=== PATIENT | female | born 1965 | race Caucasian/White ===

== ENCOUNTER 2017-12-17 18:12 | Emergency (ER) | payer BC ==
[2017-12-17 18:38] VITALS: RESP 18
[2017-12-17] MEDS ORDERED: SODIUM CHLORIDE 0.9% 1,000 ML IV STA (20:09)
[2017-12-17] MEDS ORDERED: METOCLOPRAMIDE 5 MG/ML 2 ML VIAL IVP STA (20:09)
[2017-12-17] MEDS ORDERED: KETOROLAC 30 MG/ML 1 ML VIAL IVP STA (20:09)
[2017-12-17] MEDS ORDERED: diphenhydrAMINE 50 MG/ML 1 ML VIAL IVP STA (20:09)
--- NOTE | 2017-12-17 20:13 | ED ---
General Adult HPI - General Chief complaint: Nausea/Vomiting/Diarrhea Stated complaint: POSS PANCREAS FLARE Time Seen by Provider: 12/17/17 20:00 Source: patient Mode of arrival: ambulatory Limitations: no limitations - History of Present Illness Initial comments: 52-year-old female patient presents to the emergency department today for complaints of migraine headache. Patient states that the headache started around 4 AM. Patient states has been persistent and severe since then. She states that she does have a history of migraine headaches and she generally gets them when she has issues with her pancreas. She states that she has a history of pancreatitis without having any pain. Patient states that she has been vomiting throughout the day as well. States that she has been unable to keep any food or fluid down. She denies any blurred or double vision. States that she does have some light and sound sensitivity which is per her usual migraine pattern. Patient denies any recent rash, fever, chills, shortness breath, chest pain, abdominal pain, diarrhea, constipation, back pain, numbness , tingling, dizziness, weakness, hematuria, dysuria, urinary urgency, urinary frequency, or any other complaints. - Related Data Home Medications Medication Instructions Recorded Confirmed FLUoxetine HCL [PROzac] 40 mg PO HS 12/17/17 12/17/17 Lansoprazole [Prevacid] 15 mg PO DAILY 12/17/17 12/17/17 Allergies Allergy/AdvReac Type Severity Reaction Status Date / Time codeine AdvReac Severe Nausea & Verified 12/17/17 19:54 Vomiting Review of Systems ROS Statement: Those systems with pertinent positive or pertinent negative responses have been documented in the HPI. ROS Other: All systems not noted in ROS Statement are negative. Past Medical History Past Medical History: GERD/Reflux, Osteoarthritis (OA) Additional Past Medical History / Comment(s): OCCASIONAL HEART PALPITATIONS, PAST RUPTURED DISC , PAST HX OF ANOREXIA & BULEMIA., HEMORRHOIDS., MENORRHAGIA.PANCREATITIS History of Any Multi-Drug Resistant Organisms: None Reported Past Surgical History: Section, Tubal Ligation Additional Past Surgical History / Comment(s): c section, HYSTEROSCOPY/D&C, EGD W/ BX-NEG Past Anesthesia/Blood Transfusion Reactions: Motion Sickness Past Psychological History: Depression Smoking Status: Former smoker Past Alcohol Use History: Occasional Past Drug Use History: None Reported - Past Family History Father Family Medical History: Cancer Additional Family Medical History / Comment(s): LUNG CA Brother(s) Family Medical History: CVA/TIA General Exam Limitations: no limitations General appearance: alert, in no apparent distress, other (This is a well- developed, well-nourished adult female patient in no acute distress. Vital signs upon presentation are temperature 98.2F, pulse 86, respirations 18, blood pressure 120/63, pulse ox 97% on room air.) Eye exam: Present: normal appearance, PERRL, EOMI. Absent: scleral icterus, conjunctival injection, periorbital swelling ENT exam: Present: normal exam, normal oropharynx, mucous membranes moist Respiratory exam: Present: normal lung sounds bilaterally. Absent: respiratory distress, wheezes, rales, rhonchi, stridor Cardiovascular Exam: Present: regular rate, normal rhythm, normal heart sounds. Absent: systolic murmur, diastolic murmur, rubs, gallop, clicks GI/Abdominal exam: Present: soft, normal bowel sounds. Absent: distended, tenderness, guarding, rebound, rigid Neurological exam: Present: alert, oriented X3, CN II-XII intact, other ( Strength in all 4 extremities is 5/5.) Psychiatric exam: Present: normal affect, normal mood Skin exam: Present: warm, dry, intact, normal color. Absent: rash Course Vital Signs 12/17/17 12/17/17 18:36 22:07 Temperature 98.2 F 97.3 F L Pulse Rate 86 77 Respiratory 18 18 Rate Blood Pressure 120/63 113/55 O2 Sat by Pulse 97 99 Oximetry Medical Decision Making - Medical Decision Making 50-year-old female patient percents to to the emergency department today for evaluation of headache and vomiting. Physical examination was unremarkable. Abdomen was soft and nontender. We did perform labs which were unremarkable. After receiving IV fluids and medications patient's symptoms have improved. She does feel comfortable being discharged home. She does have a history of migraine headaches and symptoms are consistent with her history. I did instruct her to follow up with her primary care physician for recheck in 1-2 days per she is instructed to return here immediately for any new, worsening, or concerning symptoms. She verbalizes understanding and agrees with this plan. - Lab Data Result diagrams: 12/17/17 20:31 12/17/17 20:31 Lab Results 12/17/17 12/17/17 12/17/17 Range/Units 20:31 20:31 20:31 WBC 10.6 (3.8-10.6) k/uL RBC 4.57 (3.80-5.40) m/uL Hgb 13.0 (11.4-16.0) gm/dL Hct 41.3 (34.0-46.0) % MCV 90.5 (80.0-100.0) fL MCH 28.4 (25.0-35.0) pg MCHC 31.4 (31.0-37.0) g/dL RDW 13.4 (11.5-15.5) % Plt Count 280 (150-450) k/uL Neutrophils % 68 % Lymphocytes % 24 % Monocytes % 5 % Eosinophils % 1 % Basophils % 0 % Neutrophils # 7.2 (1.3-7.7) k/uL Lymphocytes # 2.5 (1.0-4.8) k/uL Monocytes # 0.5 (0-1.0) k/uL Eosinophils # 0.1 (0-0.7) k/uL Basophils # 0.0 (0-0.2) k/uL Sodium 138 (137-145) mmol/L Potassium 4.4 (3.5-5.1) mmol/L Chloride 104 (98-107) mmol/L Carbon Dioxide 23 (22-30) mmol/L Anion Gap 11 mmol/L BUN 19 H (7-17) mg/dL Creatinine 0.60 (0.52-1.04) mg/dL Est GFR (MDRD) Af Amer >60 (>60 ml/min/1.73 sqM) Est GFR (MDRD) Non-Af >60 (>60 ml/min/1.73 sqM) Glucose 102 H (74-99) mg/dL Calcium 9.3 (8.4-10.2) mg/dL Total Bilirubin 0.3 (0.2-1.3) mg/dL AST 31 (14-36) U/L ALT 42 (9-52) U/L Alkaline Phosphatase 91 (38-126) U/L Total Protein 7.4 (6.3-8.2) g/dL Albumin 4.2 (3.5-5.0) g/dL Amylase 79 (30-110) U/L Lipase 133 (23-300) U/L Urine Color Yellow Urine Appearance Clear (Clear) Urine pH 6.5 (5.0-8.0) Ur Specific [place] 1.025 (1.001-1.035) Urine Protein Trace H (Negative) Urine Glucose (UA) Negative (Negative) Urine Ketones Negative (Negative) Urine Blood Negative (Negative) Urine Nitrite Negative (Negative) Urine Bilirubin Negative (Negative) Urine Urobilinogen <2.0 (<2.0) mg/dL Ur Leukocyte Esterase Negative (Negative) Disposition Clinical Impression: Migraine Disposition: HOME SELF-CARE Condition: Good Instructions: Migraine Headache (ED), Acute Nausea and Vomiting (ED) Additional Instructions: Continue taking all medications for headache relief. Increase fluids. Follow- up with her primary care physician for recheck in 1-2 days. Return here immediately for any new, worsening, or concerning symptoms. Referrals: Isaias Romero DO [Primary Care Provider] - 1-2 days Time of Disposition: 21:37
[2017-12-17 20:51] LABS: Basophils % (A) 0 %; Eosinophils # (A) 0.1 k/uL (0-0.7); Eosinophils % (A) 1 %; HCT 41.3 % (34.0-46.0); Lymphocytes # (A) 2.5 k/uL (1.0-4.8); Lymphocytes % (A) 24 %; MCH 28.4 pg (25.0-35.0); MCHC 31.4 g/dL (31.0-37.0); MCV 90.5 fL (80.0-100.0); Mean Platelet Volume 8.3; Monocytes # (A) 0.5 k/uL (0-1.0); Monocytes % (A) 5 %; Neutrophils # (A) 7.2 k/uL (1.3-7.7); Neutrophils % (A) 68 %; Platelet Count 280 k/uL (150-450); RBC 4.57 m/uL (3.80-5.40); RDW 13.4 % (11.5-15.5); WBC 10.6 k/uL (3.8-10.6)
[2017-12-17 21:00] LABS: Appearance,Urine Clear (Clear); Bilirubin,Urine Negative (Negative); Blood,Urine Negative (Negative); Color,Urine Yellow; Glucose,Urine (UA) Negative (Negative); Ketones,Urine Negative (Negative); Leukocyte Esterase,Urine Negative (Negative); Nitrite,Urine Negative (Negative); PH, Urine 6.5 (5.0-8.0); Protein,Urine Trace (Negative); Specific Gravity,Urine 1.025 (1.001-1.035); Urobilinogen,Urine <2.0 mg/dL (<2.0)
[2017-12-17 21:05] LABS: ALT 42 U/L (9-52); AST 31 U/L (14-36); Albumin 4.2 g/dL (3.5-5.0); Alkaline Phosphatase 91 U/L (38-126); Amylase 79 U/L (30-110); Anion Gap 11 mmol/L; Blood Urea Nitrogen 19 mg/dL (7-17); Calcium 9.3 mg/dL (8.4-10.2); Carbon Dioxide 23 mmol/L (22-30); Chloride 104 mmol/L (98-107); Glucose 102 mg/dL (74-99); Lipase 133 U/L (23-300); Potassium 4.4 mmol/L (3.5-5.1); Sodium 138 mmol/L (137-145); Total Bilirubin 0.3 mg/dL (0.2-1.3); Total Protein 7.4 g/dL (6.3-8.2)
[2017-12-17 22:08] VITALS: BP 113/55; PULSE 77; TEMP 97.3
== END 2017-12-17 22:07 | disposition home or self-care (01) ==
LOC: EC 18:12
DX: G43.909 Migraine, unspecified, not intractable, without status migrainosus (principal); K21.9 Gastro-esophageal reflux disease without esophagitis; F32.9 Major depressive disorder, single episode, unspecified; Z88.5 Allergy status to narcotic agent; Z87.891 Personal history of nicotine dependence; Z79.899 Other long term (current) drug therapy
CPT/HCPCS: 36415; 80053; 82150; 83690; 85025; 81003; 99284; 96374; 96375 ×2; 96361; J1200; J2765; J1885

== ENCOUNTER 2018-05-10 03:09 | Emergency (ER) | payer BC, OTHER ==
[2018-05-10 03:14] VITALS: RESP 18
[2018-05-10] MEDS ORDERED: SODIUM CHLORIDE 0.9% 1,000 ML IV STA (03:21)
[2018-05-10] MEDS ORDERED: ONDANSETRON 4 MG/2 ML VIAL IVP STA (03:21)
[2018-05-10] MEDS ORDERED: SODIUM CHLORIDE 0.9% 500 ML IV STA (03:21)
[2018-05-10] MEDS ORDERED: PANTOPRAZOLE 40 MG/10 ML VIAL IVP STA (03:21)
[2018-05-10] MEDS ORDERED: MORPHINE SULFATE 2 MG/ML SYRINGE IV STA (03:21)
--- NOTE | 2018-05-10 03:22 | ED ---
General Adult HPI - General Chief complaint: Abdominal Pain Stated complaint: Abdominal Pain Source: patient, RN notes reviewed, old records reviewed Mode of arrival: ambulatory Limitations: no limitations - History of Present Illness Initial comments: This is a 52-year-old female to the ER for evaluation. Patient is today for evaluation regards to abdominal pain. Not feeling well with nausea. Patient states her symptoms are uncontrolled. Multiple evaluations 54. She states he feels just like prior history of pancreatitis. Patient is multiple evaluations by multiple different physicians no significant acute cause are answered. Denies any fevers or diarrhea. No other chest pain - Related Data Home Medications Medication Instructions Recorded Confirmed FLUoxetine HCL [PROzac] 40 mg PO HS 12/17/17 12/17/17 Lansoprazole [Prevacid] 15 mg PO DAILY 12/17/17 12/17/17 Allergies Allergy/AdvReac Type Severity Reaction Status Date / Time codeine AdvReac Severe Nausea & Verified 05/10/18 03:14 Vomiting Review of Systems ROS Statement: Those systems with pertinent positive or pertinent negative responses have been documented in the HPI. ROS Other: All systems not noted in ROS Statement are negative. Past Medical History Past Medical History: GERD/Reflux, Osteoarthritis (OA) Additional Past Medical History / Comment(s): OCCASIONAL HEART PALPITATIONS, PAST RUPTURED DISC , PAST HX OF ANOREXIA & BULEMIA., HEMORRHOIDS., MENORRHAGIA.PANCREATITIS History of Any Multi-Drug Resistant Organisms: None Reported Past Surgical History: Section, Tubal Ligation Additional Past Surgical History / Comment(s): c section, HYSTEROSCOPY/D&C, EGD W/ BX-NEG Past Anesthesia/Blood Transfusion Reactions: Motion Sickness Past Psychological History: Depression Smoking Status: Former smoker Past Alcohol Use History: Occasional Past Drug Use History: None Reported - Past Family History Father Family Medical History: Cancer Additional Family Medical History / Comment(s): LUNG CA Brother(s) Family Medical History: CVA/TIA General Exam Limitations: no limitations General appearance: alert, in no apparent distress Head exam: Present: atraumatic, normocephalic, normal inspection Eye exam: Present: normal appearance, PERRL, EOMI. Absent: scleral icterus, conjunctival injection, periorbital swelling ENT exam: Present: normal exam, mucous membranes moist Neck exam: Present: normal inspection. Absent: tenderness, meningismus, lymphadenopathy Respiratory exam: Present: normal lung sounds bilaterally. Absent: respiratory distress, wheezes, rales, rhonchi, stridor Cardiovascular Exam: Present: regular rate, normal rhythm, normal heart sounds. Absent: systolic murmur, diastolic murmur, rubs, gallop, clicks GI/Abdominal exam: Present: soft, normal bowel sounds. Absent: distended, tenderness, guarding, rebound, rigid Extremities exam: Present: normal inspection, full ROM, normal capillary refill. Absent: tenderness, pedal edema, joint swelling, calf tenderness Back exam: Present: normal inspection Neurological exam: Present: alert, oriented X3, CN II-XII intact Psychiatric exam: Present: normal affect, normal mood Skin exam: Present: warm, dry, intact, normal color. Absent: rash Course Vital Signs 05/10/18 03:12 Temperature 97.8 F Pulse Rate 64 Respiratory 18 Rate Blood Pressure 111/73 O2 Sat by Pulse 98 Oximetry - Reevaluation(s) Reevaluation #1: 05/10/18 04:22 Medical record is reviewed including prior history of pancreatitis Medical Decision Making - Medical Decision Making 53 female the ER with mild acute recurrent pancreatitis. Patient given significant IV hydration here in the emergency room, not actively vomiting with no pain. Patient will follow-up with Dr. Cruz/Jorge L for GI today as directed - Lab Data Result diagrams: 05/10/18 03:31 05/10/18 03:31 Lab Results 05/10/18 05/10/18 05/10/18 Range/Units 03:31 03:31 03:31 WBC 7.3 (3.8-10.6) k/uL RBC 4.73 (3.80-5.40) m/uL Hgb 13.6 (11.4-16.0) gm/dL Hct 42.0 (34.0-46.0) % MCV 88.9 (80.0-100.0) fL MCH 28.8 (25.0-35.0) pg MCHC 32.4 (31.0-37.0) g/dL RDW 13.8 (11.5-15.5) % Plt Count 303 (150-450) k/uL Neutrophils % 45 % Lymphocytes % 46 % Monocytes % 6 % Eosinophils % 1 % Basophils % 0 % Neutrophils # 3.3 (1.3-7.7) k/uL Lymphocytes # 3.4 (1.0-4.8) k/uL Monocytes # 0.4 (0-1.0) k/uL Eosinophils # 0.1 (0-0.7) k/uL Basophils # 0.0 (0-0.2) k/uL Sodium 139 (137-145) mmol/L Potassium 4.2 (3.5-5.1) mmol/L Chloride 104 (98-107) mmol/L Carbon Dioxide 25 (22-30) mmol/L Anion Gap 10 mmol/L BUN 15 (7-17) mg/dL Creatinine 0.70 (0.52-1.04) mg/dL Est GFR (CKD-EPI)AfAm >90 (>60 ml/min/1.73 sqM) Est GFR (CKD-EPI)NonAf >90 (>60 ml/min/1.73 sqM) Glucose 93 (74-99) mg/dL Calcium 9.3 (8.4-10.2) mg/dL Total Bilirubin 0.4 (0.2-1.3) mg/dL AST 30 (14-36) U/L ALT 37 (9-52) U/L Alkaline Phosphatase 78 (38-126) U/L Total Creatine Kinase 100 (30-135) U/L CK-MB (CK-2) 1.2 (0.0-2.4) ng/mL CK-MB (CK-2) Rel Index 1.2 Troponin I <0.012 (0.000-0.034) ng/mL Total Protein 7.0 (6.3-8.2) g/dL Albumin 4.3 (3.5-5.0) g/dL Amylase 95 (30-110) U/L Lipase 553 H (23-300) U/L Disposition Clinical Impression: Acute pancreatitis, Recurrent acute pancreatitis Disposition: HOME SELF-CARE Condition: Good Instructions: Pancreatitis (ED) Is patient prescribed a controlled substance at d/c from ED?: No Referrals: Darnell Cruz MD [STAFF PHYSICIAN] - 1-2 days Nolvia Coats MD [STAFF PHYSICIAN] - 1-2 days
[2018-05-10 03:39] LABS: Basophils % (A) 0 %; Eosinophils # (A) 0.1 k/uL (0-0.7); Eosinophils % (A) 1 %; HGB 13.6 gm/dL (11.4-16.0); Lymphocytes # (A) 3.4 k/uL (1.0-4.8); Lymphocytes % (A) 46 %; MCH 28.8 pg (25.0-35.0); MCHC 32.4 g/dL (31.0-37.0); MCV 88.9 fL (80.0-100.0); Monocytes # (A) 0.4 k/uL (0-1.0); Monocytes % (A) 6 %; Neutrophils # (A) 3.3 k/uL (1.3-7.7); Neutrophils % (A) 45 %; Platelet Count 303 k/uL (150-450); RBC 4.73 m/uL (3.80-5.40); RDW 13.8 % (11.5-15.5); WBC 7.3 k/uL (3.8-10.6)
[2018-05-10 03:57] LABS: ALT 37 U/L (9-52); AST 30 U/L (14-36); Albumin 4.3 g/dL (3.5-5.0); Alkaline Phosphatase 78 U/L (38-126); Amylase 95 U/L (30-110); Anion Gap 10 mmol/L; Blood Urea Nitrogen 15 mg/dL (7-17); Calcium 9.3 mg/dL (8.4-10.2); Carbon Dioxide 25 mmol/L (22-30); Chloride 104 mmol/L (98-107); Glucose 93 mg/dL (74-99); Lipase 553 U/L (23-300); Potassium 4.2 mmol/L (3.5-5.1); Sodium 139 mmol/L (137-145); Total Bilirubin 0.4 mg/dL (0.2-1.3)
[2018-05-10 04:07] LABS: Creatine Kinase 100 U/L (30-135)
[2018-05-10 04:20] LABS: Creatine Kinase MB 1.2 ng/mL (0.0-2.4); Troponin I <0.012 ng/mL (0.000-0.034)
[2018-05-10 04:52] VITALS: BP 120/54; PULSE 54
[2018-05-10] MEDS ORDERED: KETOROLAC 30 MG/ML 1 ML VIAL IVP STA (04:55)
[2018-05-10] MEDS ORDERED: HYDROcodone/APAP 5-325MG 1 EACH TAB PO STA (04:56)
[2018-05-10] MEDS ORDERED: diphenhydrAMINE 50 MG/ML 1 ML VIAL IVP STA (04:56)
[2018-05-10 05:11] VITALS: TEMP 97.2
== END 2018-05-10 05:10 | disposition home or self-care (01) ==
LOC: EC 03:09
DX: K85.90 Acute pancreatitis without necrosis or infection, unspecified (principal); K86.1 Other chronic pancreatitis; K21.9 Gastro-esophageal reflux disease without esophagitis; F32.9 Major depressive disorder, single episode, unspecified; Z98.51 Tubal ligation status; Z87.891 Personal history of nicotine dependence; Z79.899 Other long term (current) drug therapy; Z88.5 Allergy status to narcotic agent
CPT/HCPCS: 36415; 80053; 82150; 82550; 82553; 83690; 84484; 85025; 99284; 96374; 96375 ×4; 96361; J1200; J2405; J1885; J2270; C9113

== ENCOUNTER → 2018-05-16 | Outpatient (CLI) | payer OTHER ==
--- NOTE | 2018-05-16 20:54 | CT ---
EXAMINATION TYPE: CT chest abdomen w con DATE OF EXAM: 05/16/2018 COMPARISON: NONE HISTORY: 53-year-old female upper quadrant pain and right upper quadrant pain on and off x 3 months. Pancreatitis, atypical chest pain. TECHNIQUE: Contiguous axial scanning of the chest and abdomen following administration of 100 ml Isov ue 300 IV contrast. Arterial and portal venous phase imaging was performed; coronal/sagittal reconst ructions performed. CT DLP: 1572 mGycm Automated exposure control for dose reduction was used. FINDINGS: CHEST: Heart is normal size with trace basilar pericardial fluid. Aorta normal caliber with conventional arch vessel branching anatomy. No thoracic lymphadenopathy by CT size criteria. No consolidation or pleural effusion. ABDOMEN: There is a tiny hiatal hernia. Small amount of focal fat along the anterior falciform ligament. Otherwise, no focal liver lesion. No biliary ductal dilatation. Portal venous system. Gallbladder, common adrenal glands, kidneys, spleen, and pancreas appear within normal limits. No dilated small bowel, free fluid, or free air. A couple borderline sized mesenteric lymph nodes are present measuring up to 6 mm, series 8 axial sharon ge 73. Mild to moderate stool within the colon without pericolonic inflammatory change along the visualized portions. Bones: Facet arthropathy mid to lower lumbar spine. Degenerative mid to lower lumbar spine as well, relative ly moderate to severe at L5-S1. Posterior disc osteophyte complex is present. [id number] bilate ral neuroforaminal narrowing. Trace grade 1 retrolisthesis at L2-S1 level. IMPRESSION: 1. NO ACUTE PULMONARY PROCESS. 2. TINY HIATAL HERNIA. 3. NO ACUTE INFLAMMATORY PROCESS IDENTIFIED IN THE UPPER ABDOMEN. A COUPLE BORDERLINE SIZED MESENTERIC LYMPH NODES MEASURING UP TO 6 MM ARE LIKELY REACTIVE/POST INFLAMMATORY.
== END | disposition home or self-care (01) ==
LOC: RADCTMAIN 18:32
DX: K44.9 Diaphragmatic hernia without obstruction or gangrene (principal); K86.1 Other chronic pancreatitis; R07.89 Other chest pain
CPT/HCPCS: 71260; 74160; Q9967

== ENCOUNTER 2018-05-26 05:52 | Emergency (ER) | payer OTHER ==
[2018-05-26] MEDS ORDERED: SODIUM CHLORIDE 0.9% 1,000 ML IV STA (06:19)
[2018-05-26] MEDS ORDERED: METOCLOPRAMIDE 5 MG/ML 2 ML VIAL IVP STA (06:19)
[2018-05-26] MEDS ORDERED: KETOROLAC 30 MG/ML 1 ML VIAL IVP STA (06:20)
--- NOTE | 2018-05-26 06:23 | ED ---
General Adult HPI - General Chief complaint: Nausea/Vomiting/Diarrhea Stated complaint: Vomiting Source: patient Mode of arrival: ambulatory Limitations: no limitations - History of Present Illness Initial comments: Dictation was produced using [employer] dictation software. please excuse any grammatical, word or spelling errors. Chief Complaint: 53-year-old female with past medical history of necrotizing, migraines presents with headache and abdominal pain. History of Present Illness: Patient reports that she's been having these symptoms for approximately 3 days. She is currently undergoing treatment with Macrobid for urinary tract infection. Patient denies any worsening urinary symptoms. She presents today with chief complaint of headache and epigastric abdominal pain. Patient has history of pancreatitis. She did have an ultrasound which did not demonstrate any gallstones. Patient was supposed to see chief contract officer for possible HIDA scan today. Patient also has a headache. Denies his headache being the worse headache of her life. She has a history of migraines reports that her headaches similar. Denies any neurologic deficits. Patient has some associated nausea. The ROS documented in this emergency department record has been reviewed and confirmed by me. Those systems with pertinent positive or negative responses have been documented in the HPI. All other systems are other negative and/or noncontributory. - Related Data Home Medications Medication Instructions Recorded Confirmed FLUoxetine HCL [PROzac] 40 mg PO HS 12/17/17 12/17/17 Lansoprazole [Prevacid] 15 mg PO DAILY 12/17/17 12/17/17 Allergies Allergy/AdvReac Type Severity Reaction Status Date / Time codeine AdvReac Severe Nausea & Verified 05/26/18 05:59 Vomiting Review of Systems ROS Statement: Those systems with pertinent positive or pertinent negative responses have been documented in the HPI. ROS Other: All systems not noted in ROS Statement are negative. Past Medical History Past Medical History: GERD/Reflux, Osteoarthritis (OA) Additional Past Medical History / Comment(s): OCCASIONAL HEART PALPITATIONS, PAST RUPTURED DISC , PAST HX OF ANOREXIA & BULEMIA., HEMORRHOIDS., MENORRHAGIA.PANCREATITIS History of Any Multi-Drug Resistant Organisms: None Reported Past Surgical History: Section, Tubal Ligation Additional Past Surgical History / Comment(s): c section, HYSTEROSCOPY/D&C, EGD W/ BX-NEG Past Anesthesia/Blood Transfusion Reactions: Motion Sickness Past Psychological History: Depression Smoking Status: Former smoker Past Alcohol Use History: None Reported Past Drug Use History: None Reported - Past Family History Father Family Medical History: Cancer Additional Family Medical History / Comment(s): LUNG CA Brother(s) Family Medical History: CVA/TIA General Exam - General Exam Comments Initial Comments: PHYSICAL EXAM: General Impression: Alert and oriented x3, acute distress secondary to pain HEENT: Normocephalic atraumatic, extra-ocular movements intact, pupils equal and reactive to light bilaterally, mucous membranes moist. Cardiovascular: Heart regular rate and rhythm, S1&S2 audible, no murmurs, rubs or gallops Chest: Lungs clear to auscultation bilaterally, no rhonchi, no wheeze, no rales Abdomen: Bowel sounds present, abdomen soft, mild epigastric tenderness to palpation, non-distended, no organomegaly Musculoskeletal: Pulses present and equal in all extremities, no peripheral edema Motor: Power 5/5 bilaterally, no focal deficits noted Neurological: CN II-XII grossly intact, no focal motor or sensory deficits noted Skin: Intact with no visualized rashes Psych: Normal affect and mood Limitations: no limitations Course Vital Signs 05/26/18 05:55 Temperature 97.9 F Pulse Rate 61 Respiratory 19 Rate Blood Pressure 110/78 O2 Sat by Pulse 98 Oximetry Medical Decision Making - Medical Decision Making ED course: 33-year-old female past medical history of migraines and pancreatitis presents with 2 complaints: Headache which is consistent with patient's normal migraines and pancreatitis which patient reports she has a history of pancreatitis. Signs upon arrival are within acceptable limits.Laboratory evaluation obtained per it CBC unremarkable. Metabolic panel is unremarkable. Lipase level is 172. Patient was concerned that she was having another episode of pancreatitis. Patient given headache cocktail and intravenous fluids with improvement of symptoms. Patient reports that she has been on Protonix for possible gastritis. Patient has appointment with chief contract officer today. Patient migraines feels much improved. In terms of addressing patient's epigastric pain, patient is instructed to bring her symptoms of epigastric pain to her chief contract officer. Patient is amenable and agreeable to discharge. - Lab Data Result diagrams: 05/26/18 06:04 05/26/18 06:04 Lab Results 05/26/18 05/26/18 Range/Units 06:04 06:04 WBC 7.3 (3.8-10.6) k/uL RBC 4.53 (3.80-5.40) m/uL Hgb 13.5 (11.4-16.0) gm/dL Hct 39.8 (34.0-46.0) % MCV 87.9 (80.0-100.0) fL MCH 29.7 (25.0-35.0) pg MCHC 33.8 (31.0-37.0) g/dL RDW 14.1 (11.5-15.5) % Plt Count 245 (150-450) k/uL Neutrophils % 55 % Lymphocytes % 37 % Monocytes % 5 % Eosinophils % 1 % Basophils % 0 % Neutrophils # 4.0 (1.3-7.7) k/uL Lymphocytes # 2.7 (1.0-4.8) k/uL Monocytes # 0.4 (0-1.0) k/uL Eosinophils # 0.1 (0-0.7) k/uL Basophils # 0.0 (0-0.2) k/uL Sodium 140 (137-145) mmol/L Potassium 4.2 (3.5-5.1) mmol/L Chloride 106 (98-107) mmol/L Carbon Dioxide 25 (22-30) mmol/L Anion Gap 9 mmol/L BUN 19 H (7-17) mg/dL Creatinine 0.59 (0.52-1.04) mg/dL Est GFR (CKD-EPI)AfAm >90 (>60 ml/min/1.73 sqM) Est GFR (CKD-EPI)NonAf >90 (>60 ml/min/1.73 sqM) Glucose 104 H (74-99) mg/dL Calcium 9.6 (8.4-10.2) mg/dL Magnesium 1.9 (1.6-2.3) mg/dL Total Bilirubin 0.2 (0.2-1.3) mg/dL AST 31 (14-36) U/L ALT 39 (9-52) U/L Alkaline Phosphatase 79 (38-126) U/L Total Protein 6.9 (6.3-8.2) g/dL Albumin 4.3 (3.5-5.0) g/dL Lipase 172 (23-300) U/L Disposition Clinical Impression: Abdominal pain, Migraine Disposition: HOME SELF-CARE Condition: Good Instructions: Acute Nausea and Vomiting (ED) Additional Instructions: f/u with GI today. Is patient prescribed a controlled substance at d/c from ED?: No Referrals: Isaias Romero DO [Primary Care Provider] - 1-2 days Time of Disposition: 07:10
[2018-05-26 06:35] LABS: Basophils % (A) 0 %; Eosinophils # (A) 0.1 k/uL (0-0.7); Eosinophils % (A) 1 %; HCT 39.8 % (34.0-46.0); HGB 13.5 gm/dL (11.4-16.0); Lymphocytes # (A) 2.7 k/uL (1.0-4.8); Lymphocytes % (A) 37 %; MCH 29.7 pg (25.0-35.0); MCHC 33.8 g/dL (31.0-37.0); MCV 87.9 fL (80.0-100.0); Mean Platelet Volume 8.3; Monocytes # (A) 0.4 k/uL (0-1.0); Monocytes % (A) 5 %; Neutrophils % (A) 55 %; Platelet Count 245 k/uL (150-450); RBC 4.53 m/uL (3.80-5.40); RDW 14.1 % (11.5-15.5); WBC 7.3 k/uL (3.8-10.6)
[2018-05-26 06:47] LABS: ALT 39 U/L (9-52); AST 31 U/L (14-36); Albumin 4.3 g/dL (3.5-5.0); Alkaline Phosphatase 79 U/L (38-126); Anion Gap 9 mmol/L; Blood Urea Nitrogen 19 mg/dL (7-17); Calcium 9.6 mg/dL (8.4-10.2); Carbon Dioxide 25 mmol/L (22-30); Chloride 106 mmol/L (98-107); Glucose 104 mg/dL (74-99); Lipase 172 U/L (23-300); Magnesium 1.9 mg/dL (1.6-2.3); Potassium 4.2 mmol/L (3.5-5.1); Sodium 140 mmol/L (137-145); Total Bilirubin 0.2 mg/dL (0.2-1.3); Total Protein 6.9 g/dL (6.3-8.2)
[2018-05-26 07:56] VITALS: BP 122/68; PULSE 70; RESP 18; TEMP 98
== END 2018-05-26 08:00 | disposition home or self-care (01) ==
LOC: EC 05:52
DX: G43.909 Migraine, unspecified, not intractable, without status migrainosus (principal); R10.13 Epigastric pain; R74.8 Abnormal levels of other serum enzymes; K21.9 Gastro-esophageal reflux disease without esophagitis; F32.9 Major depressive disorder, single episode, unspecified; Z87.19 Personal history of other diseases of the digestive system; Z88.5 Allergy status to narcotic agent; Z79.899 Other long term (current) drug therapy; Z87.891 Personal history of nicotine dependence
CPT/HCPCS: 99284; 96374; 96375; 96361; 36415; 80053; 83690; 83735; 85025; J2765; J1885

== ENCOUNTER → 2018-06-02 | Outpatient (CLI) | payer OTHER ==
--- NOTE | 2018-06-02 16:40 | NM ---
EXAMINATION TYPE: NM hepatobiliary w CCK DATE OF EXAM: 06/02/2018 COMPARISON: NONE INDICATION: Abnormal gallbladder TECHNIQUE: After the intravenous administration of 5.27 mCi Tc 99m Mebrofenin hepatobiliary scintigra phy is performed. Images were obtained immediately post injection. FINDINGS: There is prompt uptake and excretion of radiotracer by the liver. Extrahepatic ducts are identified at 8 minutes. The gallbladder is visualized within 10 minutes. Small bowel activity is noted within 13 minutes. At one hour CCK was administered, patient was injected with 1.6 mcg of Kinevac, and gallbladder eject ion fraction is calculated at 70 %, which is in the normal range.. (Normal >35% and <80%.). IMPRESSION: 1. Normal hepatobiliary scan.
--- NOTE | 2018-06-02 16:57 | US ---
EXAMINATION TYPE: US gallbladder DATE OF EXAM: 06/02/2018 COMPARISON: CLINICAL HISTORY: K82.8 Other specified diseases of gallbladder. RUQ pain, N/D EXAM MEASUREMENTS: Liver Length: 15.5 cm Gallbladder Wall: 0.2 cm CHD: 0.2 cm Right Kidney: 11.3 x 4.9 x 3.9 cm Pancreas: wnl Liver: Slightly heterogenous Gallbladder: wnl Evidence for sonographic Howell's sign: neg CHD: wnl Right Kidney: wnl IMPRESSION: 1. Visualized right upper quadrant ultrasound is unremarkable.
== END | disposition home or self-care (01) ==
LOC: RADUSMAIN 09:37
PROVIDERS: ATTEND Surgery
DX: K82.8 Other specified diseases of gallbladder (principal); R10.84 Generalized abdominal pain
CPT/HCPCS: 76705; 78227; A9537; J2805

== ENCOUNTER 2018-06-09 08:01 | Day surgery (SDC) | payer OTHER ==
[2018-06-09] MEDS ORDERED: LACTATED RINGERS 1,000 ML IV SCH (08:21)
[2018-06-09] MEDS ORDERED: LIDOCAINE 1% 20 ML VIAL (10MG/ML) FOR IV START INTRADERMA PRN (08:21)
[2018-06-09] MEDS ORDERED: MIDAZOLAM 2 MG/2 ML VIAL IV PRN (08:21)
[2018-06-09 08:32] VITALS: RESP 16; TEMP 98.2
[2018-06-09] MEDS ORDERED: PROPOFOL 10 MG/ML 20 ML VIAL IV ONE (08:53)
--- NOTE | 2018-06-09 08:56 | P.GSHP ---
History of Present Illness H&P Date: 06/09/18 Chief Complaint: GERD This a 53-year-old female who presents today for EGD. Patient has had issues with GERD. Her recent CAT scan shows evidence of a small hiatal hernia. Her recent HIDA scan and ultrasound are within normal limits. Past Medical History Past Medical History: GERD/Reflux, Osteoarthritis (OA) Additional Past Medical History / Comment(s): OCCASIONAL HEART PALPITATIONS, PAST RUPTURED DISC , PAST HX OF ANOREXIA & BULEMIA., HEMORRHOIDS., MENORRHAGIA.PANCREATITIS History of Any Multi-Drug Resistant Organisms: None Reported Past Surgical History: Section, Tubal Ligation Additional Past Surgical History / Comment(s): c section, HYSTEROSCOPY/D&C, EGD W/ BX-NEG Past Anesthesia/Blood Transfusion Reactions: Motion Sickness Past Psychological History: Depression Smoking Status: Former smoker Past Alcohol Use History: None Reported Past Drug Use History: None Reported - Past Family History Father Family Medical History: Cancer Additional Family Medical History / Comment(s): LUNG CA Brother(s) Family Medical History: CVA/TIA Medications and Allergies Home Medications Medication Instructions Recorded Confirmed Type FLUoxetine HCL [PROzac] 40 mg PO HS 12/17/17 06/09/18 History Pantoprazole Sodium [Protonix] 20 mg PO DAILY 06/09/18 06/09/18 History Allergies Allergy/AdvReac Type Severity Reaction Status Date / Time codeine AdvReac Severe Nausea & Verified 06/09/18 08:32 Vomiting Surgical - Exam Vital Signs Temp Pulse Resp BP Pulse Ox 98.2 F 76 16 116/72 98 06/09/18 08:28 06/09/18 08:28 06/09/18 08:28 06/09/18 08:28 06/09/18 08:28 - General well developed, no distress - Eyes PERRL - ENT normal pinna - Neck no masses - Respiratory normal expansion - Cardiovascular Rhythm: regular - Abdomen Abdomen: soft, non tender Assessment and Plan Assessment: GERD. We'll perform EGD.
--- NOTE | 2018-06-09 09:06 | P.OP ---
Date of Procedure: 06/09/18 Preoperative Diagnosis: GERD Postoperative Diagnosis: Antral gastritis Hiatal hernia Esophagitis Procedure(s) Performed: EGD Anesthesia: MAC Surgeon: Sunny Schmidt Pathology: other (Antrum, esophagus) Condition: stable Disposition: PACU Description of Procedure: The patient's placed on the endoscopy table in the lateral position. She received IV sedation. The gastric scope was placed oropharynx and passed into the esophagus into the stomach. Scope was then placed through the pylorus. The first and second portion of the duodenum appeared normal. Scope was then brought back the antrum and this appeared mildly inflamed. A biopsy was performed. The scope was then retroflexed and remainder the stomach appeared normal. The patient had a sliding hiatal hernia. The GE junction was at 38 cm. The distal esophagus appeared mildly inflamed a biopsies performed. The proximal esophagus appeared normal. The scope was withdrawn from patient.
[2018-06-09 09:37] VITALS: BP 108/53; PULSE 52
== END 2018-06-09 09:48 | disposition home or self-care (01) ==
LOC: ORWHC2ENDO 08:01
PROVIDERS: ATTEND Surgery
DX: K21.0 Gastro-esophageal reflux disease with esophagitis (principal); K29.50 Unspecified chronic gastritis without bleeding; K44.9 Diaphragmatic hernia without obstruction or gangrene; M19.90 Unspecified osteoarthritis, unspecified site; F32.9 Major depressive disorder, single episode, unspecified; R00.2 Palpitations; Z79.899 Other long term (current) drug therapy; Z88.5 Allergy status to narcotic agent; Z98.51 Tubal ligation status; Z87.891 Personal history of nicotine dependence
CPT/HCPCS: 88305; 43239; J2704

== ENCOUNTER → 2018-07-18 | Outpatient (CLI) | payer OTHER ==
[2018-07-18 13:23] LABS: Basophils % (A) 0 %; Eosinophils # (A) 0.1 k/uL (0-0.7); Eosinophils % (A) 1 %; HCT 41.3 % (34.0-46.0); HGB 13.6 gm/dL (11.4-16.0); Lymphocytes # (A) 2.8 k/uL (1.0-4.8); Lymphocytes % (A) 38 %; MCH 30.2 pg (25.0-35.0); MCHC 32.9 g/dL (31.0-37.0); MCV 91.9 fL (80.0-100.0); Mean Platelet Volume 8.4; Monocytes # (A) 0.5 k/uL (0-1.0); Monocytes % (A) 7 %; Neutrophils # (A) 3.8 k/uL (1.3-7.7); Neutrophils % (A) 52 %; Platelet Count 295 k/uL (150-450); RBC 4.49 m/uL (3.80-5.40); RDW 13.4 % (11.5-15.5); WBC 7.3 k/uL (3.8-10.6)
== END | disposition home or self-care (01) ==
LOC: LABPAT 12:14
PROVIDERS: ATTEND Surgery
DX: Z01.812 Encounter for preprocedural laboratory examination (principal); Z01.818 Encounter for other preprocedural examination; K21.9 Gastro-esophageal reflux disease without esophagitis; D64.9 Anemia, unspecified; F17.200 Nicotine dependence, unspecified, uncomplicated
CPT/HCPCS: 36415; 85025; 86850; 86900; 86901; 93005

== ENCOUNTER 2018-07-21 07:09 | Observation (INO) | payer OTHER ==
[~2018-07-21 07:09] MED LIST: DEXAMETHASONE SOD PHOSPHATE 10 MG/ML 1 ML VIAL IV ONE; HEPARIN SODIUM,PORCINE 5,000 UNIT/ML 1 ML VIAL SQ ONE; LACTATED RINGERS 1,000 ML IV SCH; LIDOCAINE 1% 20 ML VIAL (10MG/ML) FOR IV START INTRADERMA PRN; MIDAZOLAM 2 MG/2 ML VIAL IV PRN; ONDANSETRON 4 MG/2 ML VIAL IVP ONE; ceFAZolin IN SWFI 2 GM/20 ML SYRINGE IVP ONE; fentaNYL (PF) 50 MCG/ML 2 ML AMP IV PRN
[2018-07-21 08:04] LABS: Glucose,Whole Blood 91 mg/dL (75-99)
[2018-07-21] MEDS ORDERED: SCOPOLAMINE 1.5MG/72HR PATCH TRANSDERM ONE (08:10)
--- NOTE | 2018-07-21 08:46 | P.GSHP ---
History of Present Illness H&P Date: 07/21/18 Chief Complaint: GERD This a 53-year-old female referred from Dr. gerber. The patient has had long- standing problems with reflux esophagitis. The patient underwent recent EGD is found have evidence of esophagitis. Patient has been well informed on the procedure of laparoscopic Yury fundoplication. The patient is aware the risk of the conversion to the open procedure, risk of injury to the stomach, liver and spleen. The patient is also a risk of recurrent GERD and dysphagia symptoms. The patient understands there is a postoperative diet of full liquids for 2 weeks after surgery. Past Medical History Past Medical History: GERD/Reflux, Osteoarthritis (OA) Additional Past Medical History / Comment(s): OCCASIONAL HEART PALPITATIONS, PAST RUPTURED DISC , PAST HX OF ANOREXIA & BULEMIA., HEMORRHOIDS., PANCREATITIS History of Any Multi-Drug Resistant Organisms: None Reported Past Surgical History: Section, Tubal Ligation Additional Past Surgical History / Comment(s): c section, HYSTEROSCOPY/D&C, EGD W/ BX-NEG Past Anesthesia/Blood Transfusion Reactions: Motion Sickness Past Psychological History: Depression Additional Psychological History / Comment(s): PAST HX OF EATING DISORDER. Smoking Status: Former smoker Past Alcohol Use History: None Reported Additional Past Alcohol Use History / Comment(s): SMOKED 1 PPD FOR APPROX 15 YEARS. QUIT SMOKING 2005. Past Drug Use History: Marijuana Additional Drug Use History / Comment(s): OCC USE OF MARIJUANA - Past Family History Father Family Medical History: Cancer Additional Family Medical History / Comment(s): LUNG CA Brother(s) Family Medical History: CVA/TIA Medications and Allergies Home Medications Medication Instructions Recorded Confirmed Type Pantoprazole Sodium [Protonix] 20 mg PO DAILY PRN 06/09/18 07/21/18 History Allergies Allergy/AdvReac Type Severity Reaction Status Date / Time codeine AdvReac Severe Nausea & Verified 07/21/18 07:48 Vomiting Surgical - Exam Vital Signs Temp Pulse Resp BP Pulse Ox 97.6 F 72 16 131/65 95 07/21/18 07:49 07/21/18 07:49 07/21/18 07:49 07/21/18 07:49 07/21/18 07:49 - General well developed, no distress - Eyes PERRL - ENT normal pinna - Neck no masses - Respiratory normal expansion - Cardiovascular Rhythm: regular - Abdomen Abdomen: soft, non tender Assessment and Plan Assessment: GERD. We'll perform laparoscopic Yury fundal plication.
[2018-07-21] MEDS ORDERED: MIDAZOLAM 2 MG/2 ML VIAL ONE (09:06)
[2018-07-21] MEDS ORDERED: LIDOCAINE 1% INJ 10MG/ML (20 ML MDV) ONE (09:06)
[2018-07-21] MEDS ORDERED: NEOSTIGMINE 1 MG/ML 10 ML VIAL ONE (09:06)
[2018-07-21] MEDS ORDERED: GLYCOPYRROLATE 0.2 MG/ML 2 ML VIAL ONE (09:06)
[2018-07-21] MEDS ORDERED: fentaNYL (PF) 50 MCG/ML 2 ML AMP ONE (09:06)
[2018-07-21] MEDS ORDERED: PROPOFOL 10 MG/ML 20 ML VIAL IV ONE (09:06)
[2018-07-21] MEDS ORDERED: SUCCINYLCHOLINE CHLORIDE 100 MG/5 ML SYR IV ONE (09:06)
[2018-07-21] MEDS ORDERED: ROCURONIUM BROMIDE 10 MG/ML 10 ML VIAL IV ONE (09:06)
[2018-07-21] MEDS ORDERED: ePHEDrine SULFATE/0.9% NACL/PF 50 MG/5 ML SYRINGE IV ONE (09:06)
[2018-07-21] MEDS ORDERED: BUPIVACAIN-EPI 0.5%-1:200,000 30 ML VIAL SQ ONE (09:38)
[2018-07-21] MEDS ORDERED: LACTATED RINGERS 1,000 ML IV ONE (09:40)
--- NOTE | 2018-07-21 10:07 | P.OP ---
Date of Procedure: 07/21/18 Preoperative Diagnosis: GERD Postoperative Diagnosis: GERD Procedure(s) Performed: Laparoscopic Yury fundoplication Anesthesia: VINCE Surgeon: Sunny Schmidt Pathology: none sent Condition: stable Disposition: PACU Description of Procedure: The patient was placed on the operating table in the supine position. The patient received general anesthesia. And was placed in dorsal lithotomy position. The patient was prepped and draped in the usual sterile fashion. The skin incision sites were anesthetized with 1% local Xylocaine. The skin was incised in the left periumbilical area and then using a blade less 5 mm trocar under direct visualization panel cavity was entered. After adequate insufflation the laparoscope was then placed into the peritoneal cavity. Next a 5 mm trochars placed in the right epigastric position. Another 5 millimeter trocar the right lateral position. Another 5 millimeter trocar in the left lateral position a 5 mm trocar is placed in the left epigastric position. And then the initial 5 mm trocar was exchanged for a 10 mm trocar. The left lateral lobe liver was retracted. The hernia was seen. The crural defect was then dissected using the Harmonic scissors device. A 360 crural dissection was performed the esophagus stomach was reduced back into the peritoneal Cavity. The crural defect was then closed using 2-0 Ethibond suture. Next the fundus of the stomach was mobilized using the Han[place] scissors device. and then a 58-Icelandic bougie dilator was placed oropharynx passed into the esophagus and stomach the fundal plication wrap was then performed by grasping the fundus posteriorly and bringing it around the esophagus and stomach fundoplication was then performed using 2-0 Ethibond suture. Care was taken that the fundal location rested over top of the intra-abdominal esophagus. There was no injury seen to the stomach or esophagus. The dilator was then withdrawn. The abdomen was irrigated there is no bleeding seen. The trochars were then withdrawn and then skin incision sites were closed using 3-0 Monocryl suture Steri-Strips are applied. Patient thought procedure well and sent to recovery room in stable condition.
[2018-07-21] MEDS ORDERED: ONDANSETRON 4 MG/2 ML VIAL IVP ONE (10:26)
[2018-07-21] MEDS ORDERED: HYDROmorphone 1 MG/ML 1 ML SYRINGE IVP ONE ×2 (10:26→10:32)
[2018-07-21] MEDS ORDERED: MEPERIDINE 50 MG/ML SYRINGE IVP ONE ×2 (10:37→10:44)
[2018-07-21] MEDS ORDERED: HYDROmorphone 1 MG/ML 1 ML SYRINGE IVP PRN (11:04)
[2018-07-21] MEDS: D5-0.45% NACL WITH KCL 20MEQ/L 1,000 ML IV SCH (11:20)
[2018-07-21] MEDS: METOCLOPRAMIDE 5 MG/ML 2 ML VIAL IVP SCH ×2 (13:21→18:26)
[2018-07-21 13:31] VITALS: BMI 31.2
--- NOTE | 2018-07-21 15:43 | FL ---
Single contrast esophagram EXAMINATION TYPE: FL esophagus cervic/pharynx DATE OF EXAM: 07/21/2018 3:06 PM COMPARISON: NONE CLINICAL HISTORY: Status post Jamir fundoplication The patient ingested contrast without difficulty or delay. Noted are changes of Jamir fundoplicatio n. There is no evidence for leak or obstruction. Small amount of residual contrast within the distal esophagus. IMPRESSION: Post-surgical change of Jamir fundoplication without evidence for leak or obstruction.
[2018-07-21] MEDS: ONDANSETRON 4 MG/2 ML VIAL IVP PRN (18:38)
[2018-07-21 18:48] VITALS: RESP 16
--- NOTE | 2018-07-21 21:20 | P.CONS ---
History of Present Illness - Reason for Consult Consult date: 07/21/18 Medical management - Chief Complaint Status post Yury fundoplication. - History of Present Illness Patient is a 53-year-old female with known history of GERD with worsening symptoms last 1 year, osteoarthritis was admitted to the hospital for Yury fundoplication surgery. Patient underwent laparoscopic Yury fundoplication due to hiatal hernia. Currently patient is still nauseated. No episodes of vomiting. Patient underwent upper GI series. No complaints of chest pain or shortness of breath. Slight soreness at the abdominal surgical site. No headache or dizziness or lightheadedness. No fever no chills. Recent EGD showed esophagitis and hiatal hernia Review of Systems Constitutional: Patient denies any fever or chills . No generalized weakness or weight loss. Abdomen: Does have nausea and abdominal soreness.. Cardiovascular: Patient denies any chest pain or short of breath no palpitations. Respiratory: patient denied any cough is from production. No shortness of breath Neurologic: Patient denied any numbness or tingling headache. Musculoskeletal: Patient denies any complaints of joint swelling or deformity. Skin: Negative Psychiatric: Negative Endocrine: No heat or cold intolerance. No recent weight gain. Genitourinary: No dysuria or hematuria. All other 14 point ROS negative except the above Past Medical History Past Medical History: GERD/Reflux, Osteoarthritis (OA) Additional Past Medical History / Comment(s): OCCASIONAL HEART PALPITATIONS, PAST RUPTURED DISC , PAST HX OF ANOREXIA & BULEMIA., HEMORRHOIDS., PANCREATITIS History of Any Multi-Drug Resistant Organisms: None Reported Past Surgical History: Section, Tubal Ligation Additional Past Surgical History / Comment(s): c section, HYSTEROSCOPY/D&C, EGD W/ BX-NEG Past Anesthesia/Blood Transfusion Reactions: Motion Sickness Smoking Status: Never smoker - Past Family History Father Family Medical History: Cancer Additional Family Medical History / Comment(s): LUNG CA Brother(s) Family Medical History: CVA/TIA Medications and Allergies Home Medications Medication Instructions Recorded Confirmed Type Pantoprazole Sodium [Protonix] 20 mg PO DAILY PRN 06/09/18 07/21/18 History Allergies Allergy/AdvReac Type Severity Reaction Status Date / Time codeine AdvReac Severe Nausea & Verified 07/21/18 20:57 Vomiting Physical Exam Vitals: Vital Signs Temp Pulse Pulse Resp BP Pulse Ox 07/21/18 12:10 55 L 15 104/70 92 L 07/21/18 11:55 66 16 119/65 92 L 07/21/18 11:40 59 L 14 111/74 92 L 07/21/18 11:25 97.4 F L 51 L 12 113/74 90 L 07/21/18 10:45 53 L 16 118/59 100 07/21/18 10:30 54 L 15 145/66 100 07/21/18 10:15 63 16 165/77 98 07/21/18 10:08 97.6 F 75 14 164/77 98 07/21/18 07:49 97.6 F 72 16 131/65 95 Intake and Output 07/20/18 07/21/18 07/21/18 22:59 06:59 14:59 Intake Total 1999 Output Total 5 Balance 1994 Intake: IV 1999 Output: Estimated Blood Loss 5 Other: Weight 85.275 kg PHYSICAL EXAMINATION: Patient is lying in the bed comfortably, no acute distress, awake alert and oriented.. HEENT: Normocephalic. Neck is supple. Pupils reactive. Nostrils clear. Oral cavity is moist. Ears reveal no drainage. Neck reveals no JVD, carotid bruits, or thyromegaly. CHEST EXAMINATION: Trachea is central. Symmetrical expansion. Lung escobedo clear to auscultation and percussion. CARDIAC: Normal S1, S2 with no gallops. No murmurs ABDOMEN: Soft. Surgical site intact. Bowel sounds normal. No organomegaly. No abdominal bruits. Extremities: reveal no edema. No clubbing or cyanosis Neurologically awake, alert, oriented x3 with well-coordinated movements. No focal deficits noted Skin: No rash or skin lesions. Psychiatric: Coperative. Nonsuicidal Musculoskeletal: No joint swelling or deformity. Normal range of motion. Assessment and Plan Assessment: Status post Yury fundoplication. GERD Hiatal hernia Osteoarthritis Family history of lung cancer DVT prophylaxis Plan: Patient be continued on IV fluids. Continue the symptomatic management for nausea. Encourage him relation and incentive spirometry. DVT prophylaxis. Pain management and follow up closely. Further admissions based on the clinical course. We will continue to follow with you. Thank you for your consult Time with Patient: Greater than 30
[2018-07-22] MEDS: METOCLOPRAMIDE 5 MG/ML 2 ML VIAL IVP SCH ×2 (00:03→06:06)
[2018-07-22] MEDS: ONDANSETRON 4 MG/2 ML VIAL IVP PRN (01:54)
[2018-07-22] MEDS: D5-0.45% NACL WITH KCL 20MEQ/L 1,000 ML IV SCH (02:07)
[2018-07-22 07:10] LABS: Basophils % (A) 0 %; Eosinophils # (A) 0.1 k/uL (0-0.7); Eosinophils % (A) 1 %; HCT 34.8 % (34.0-46.0); HGB 11.4 gm/dL (11.4-16.0); Lymphocytes # (A) 2.1 k/uL (1.0-4.8); Lymphocytes % (A) 17 %; MCH 30.1 pg (25.0-35.0); MCHC 32.7 g/dL (31.0-37.0); MCV 92.1 fL (80.0-100.0); Mean Platelet Volume 8.5; Monocytes % (A) 8 %; Neutrophils # (A) 8.6 k/uL (1.3-7.7); Neutrophils % (A) 72 %; Platelet Count 294 k/uL (150-450); RBC 3.78 m/uL (3.80-5.40); RDW 13.3 % (11.5-15.5); WBC 12.1 k/uL (3.8-10.6)
[2018-07-22 07:20] LABS: Anion Gap 8 mmol/L; Blood Urea Nitrogen 8 mg/dL (7-17); Calcium 9.2 mg/dL (8.4-10.2); Carbon Dioxide 24 mmol/L (22-30); Chloride 107 mmol/L (98-107); Glucose 118 mg/dL (74-99); Potassium 4.6 mmol/L (3.5-5.1); Sodium 139 mmol/L (137-145)
[2018-07-22] MEDS ORDERED: ENOXAPARIN 40 MG/0.4 ML SYRINGE SQ SCH (09:00)
[2018-07-22 09:25] VITALS: BP 124/73; PULSE 67; TEMP 98.7
[2018-07-22] MEDS ORDERED: ACETAMINOPHEN TAB 325 MG TAB PO PRN (09:36)
--- NOTE | 2018-07-22 11:16 | P.DS ---
Providers Date of admission: 07/21/18 19:23 Expected date of discharge: 07/22/18 Attending physician: Sunny Schmidt Consults: 07/21/18 10:07 Consult Physician Routine Consulting Provider: Harlan Santiago Consult Reason/Comments: Medical management Do you want consulting provider notified?: Yes Primary care physician: [facility] Course: 53-year-old female who presented to undergo elective laparoscopic Yury fundoplication for symptomatic esophageal reflux symptoms patient has a long- standing problem with reflux esophagitis. Recent EGD did show evidence of esophagitis. Patient underwent the procedure on July 21. Was tolerating Yury clear liquid diet. There were no nausea vomiting. Surgical dressing sites were dry. Up ambulatory on the unit passing gas had a bowel movement no nausea no vomiting. Patient is appropriate to be discharged Impression discharge diagnoses Symptomatic reflux esophagitis failed outpatient treatment A recent EGD showed evidence of esophagitis Postop July 21 laparoscopic Yury fundoplication for symptomatic esophageal reflux disease The above impression and plan of care have been discussed and directed by signing physician. Inna Cole nurse practitioner acting as scribe for signing physician. Plan - Discharge Summary Discharge Rx Participant: No New Discharge Prescriptions: New Acetaminophen Tab [Tylenol Tab] 650 mg PO Q4H #30 tablet Discontinued Pantoprazole Sodium [Protonix] 20 mg PO DAILY PRN PRN Reason: Heartburn Discharge Medication List Acetaminophen Tab [Tylenol Tab] 650 mg PO Q4H #30 tablet 07/22/18 [Rx] Follow up Appointment(s)/Referral(s): Sunny Schmidt MD [STAFF PHYSICIAN] - 08/04/18 2:30 pm Patient Instructions/Handouts: *[facility] - ([facility]) Lap Uyry Fundiplication Post-Op Instructions, *[facility] - Scopalamine Patch Instructions, Pain Management After Surgery (GEN), Fundoplication in Adults (DC) Activity/Diet/Wound Care/Special Instructions: Full liquid diet for two weeks. Eat small amounts frequently. May have protein shakes to reach 70 to 80 grams of protein a day. No lifting or stooping over. No driving, no swimming, no pools or hot tubs, no tub baths. May shower, leave the tapes in place over your incisions, they will fall off on their own. Call Dr Schmidt if you develop a fever or chills, increase in pain, or vomiting. Call Dr Schmidt if you have any questions or concerns. Discharge Disposition: HOME SELF-CARE
== END 2018-07-22 12:11 | disposition home or self-care (01) ==
LOC: OR 07:09 → 6PED 10:05 → OR 19:23 → 6PED 19:23
PROVIDERS: ADMIT Surgery; ATTEND Surgery
DX: K21.0 Gastro-esophageal reflux disease with esophagitis (principal); R11.0 Nausea; M19.90 Unspecified osteoarthritis, unspecified site; K44.9 Diaphragmatic hernia without obstruction or gangrene; F32.9 Major depressive disorder, single episode, unspecified; Z79.899 Other long term (current) drug therapy; Z88.5 Allergy status to narcotic agent; Z87.891 Personal history of nicotine dependence; Z86.59 Personal history of other mental and behavioral disorders; Z87.19 Personal history of other diseases of the digestive system; Z98.51 Tubal ligation status; Z80.1 Family history of malignant neoplasm of trachea, bronchus and lung; Z82.3 Family history of stroke
CPT/HCPCS: 43280; 81025; 80048; 85025; 74210; G0378 ×2; J2250; J1644; J1100; J2710; J2765 ×2; J2175; J2405 ×2; J2001; J1650; J3010; J1170; J0330; J2704; J0690; Q9967; 86850; 86900; 86901

== ENCOUNTER → 2018-08-05 | Outpatient (CLI) | payer OTHER ==
--- NOTE | 2018-08-05 11:41 | FL ---
EXAMINATION TYPE: FL barium swallow DATE OF EXAM: 08/05/2018 CLINICAL HISTORY: Postoperative dysphasia TECHNIQUE: A single contrast esophagram is performed utilizing Isovue 370, 50 mL. A total of 42 seconds of fluoroscopic time was utilized during procedure. 12 images submitted. COMPARISON: None FINDINGS: I contrast passed from the esophagus into the stomach. However there was a mild to moderate delay at the level the GE junction. There is no evidence of filling defect. No esophageal dilation w as seen. Upon completion exam all contrast was seen within the stomach IMPRESSION: 1. There is mild to moderate delay in passage of contrast from the esophagus to the stomach at the le nilesh of the GE junction consider direct visualization.
== END | disposition home or self-care (01) ==
LOC: RADFLWHC 10:53
PROVIDERS: ATTEND Surgery
DX: K22.8 Other specified diseases of esophagus (principal)
CPT/HCPCS: 74220; Q9967

== ENCOUNTER 2018-08-08 12:00 | Day surgery (SDC) | payer OTHER ==
[2018-08-05 08:52] VITALS: BMI 28.3
[~2018-08-08 12:00] MED LIST changes: -DEXAMETHASONE SOD PHOSPHATE 10 MG/ML 1 ML VIAL IV ONE; -HEPARIN SODIUM,PORCINE 5,000 UNIT/ML 1 ML VIAL SQ ONE; -LIDOCAINE 1% 20 ML VIAL (10MG/ML) FOR IV START INTRADERMA PRN; -MIDAZOLAM 2 MG/2 ML VIAL IV PRN; -ONDANSETRON 4 MG/2 ML VIAL IVP ONE; -ceFAZolin IN SWFI 2 GM/20 ML SYRINGE IVP ONE; -fentaNYL (PF) 50 MCG/ML 2 ML AMP IV PRN
[2018-08-08 12:30] VITALS: TEMP 98
[2018-08-08] MEDS ORDERED: ONDANSETRON 4 MG/2 ML VIAL ONE (13:14)
[2018-08-08] MEDS ORDERED: LIDOCAINE 1% INJ 10MG/ML (20 ML MDV) ONE (13:14)
[2018-08-08] MEDS ORDERED: PROPOFOL 10 MG/ML 20 ML VIAL IV ONE (13:14)
--- NOTE | 2018-08-08 13:20 | P.GSHP ---
History of Present Illness H&P Date: 08/08/18 Chief Complaint: Dysphagia 's is a 53-year-old female who presents today for EGD with balloon dilatation. Patient has had some history of dysphagia. She underwent recent repair of hiatal hernia and Yury plication. Her esophagram performed 3 days ago shows some mild obstruction of the GE junction. Past Medical History Past Medical History: GERD/Reflux, Musculoskeletal Disorder, Osteoarthritis (OA) Additional Past Medical History / Comment(s): DYSPHAGIA;OCCASIONAL HEART PALPITATIONS,PAST RUPTURED DISC , PAST HX OF ANOREXIA & BULEMIA., HEMORRHOIDS. , PANCREATITIS History of Any Multi-Drug Resistant Organisms: None Reported Past Surgical History: Section, Hernia Repair, Tubal Ligation Additional Past Surgical History / Comment(s): HYSTEROSCOPY/D&C, EGD W/ BX-NEG Past Anesthesia/Blood Transfusion Reactions: Motion Sickness, Postoperative Nausea & Vomiting (PONV) Smoking Status: Former smoker - Past Family History Father Family Medical History: Cancer Additional Family Medical History / Comment(s): LUNG CA Brother(s) Family Medical History: CVA/TIA Medications and Allergies Home Medications Medication Instructions Recorded Confirmed Type Acetaminophen Tab [Tylenol Tab] 650 mg PO Q4H #30 tablet 07/22/18 08/08/18 Rx Allergies Allergy/AdvReac Type Severity Reaction Status Date / Time codeine AdvReac Severe Nausea & Verified 08/08/18 12:33 Vomiting Surgical - Exam Vital Signs Temp Pulse Resp BP Pulse Ox 98 F 79 16 114/67 98 08/08/18 12:29 08/08/18 12:29 08/08/18 12:29 08/08/18 12:29 08/08/18 12:29 - General well developed, no distress - Eyes PERRL - ENT normal pinna - Neck no masses - Respiratory normal expansion - Cardiovascular Rhythm: regular - Abdomen Abdomen: soft, non tender Assessment and Plan Assessment: History dysphagia. We'll perform EGD with balloon dilatation.
[2018-08-08 14:34] VITALS: BP 122/76; PULSE 58; RESP 18
--- NOTE | 2018-08-09 11:51 | P.OP ---
Date of Procedure: 08/09/18 Preoperative Diagnosis: Dysphagia Postoperative Diagnosis: Dysphagia Procedure(s) Performed: EGD with balloon dilatation of GE junction Anesthesia: VINCE Surgeon: Sunny Schmidt Pathology: none sent Condition: stable Disposition: PACU Description of Procedure: The patient's placed on the operative table in the supine position. She received IV sedation. The gastroscope placed oropharynx passed in the esophagus. Scope was placed in the stomach. Scope was placed through the pylorus. There is no evidence of gastric outlet obstruction. Scope was then brought back and the stomach and retroflexed the patient did not appear to have a hiatal hernia. GE junction was at 40 cm. Due to the patient's symptoms and dysphagia a 20 mm balloon was placed across the level of the GE junction for 3 minutes. The balloon was withdrawn. There is no evidence of any injury to the esophagus. The scope was withdrawn for patient.
== END 2018-08-08 14:54 | disposition home or self-care (01) ==
LOC: ORWHC2ENDO 12:00
PROVIDERS: ATTEND Surgery
DX: R13.10 Dysphagia, unspecified (principal); Z87.19 Personal history of other diseases of the digestive system; Z87.891 Personal history of nicotine dependence; K21.9 Gastro-esophageal reflux disease without esophagitis; M19.90 Unspecified osteoarthritis, unspecified site; Z79.899 Other long term (current) drug therapy; Z88.5 Allergy status to narcotic agent
CPT/HCPCS: 43249; J2405; J2001; J2704; C1726

== ENCOUNTER 2018-08-19 11:15 | Day surgery (SDC) | payer OTHER ==
[2018-08-17 12:02] VITALS: BMI 29.1
[2018-08-19 11:54] VITALS: RESP 16; TEMP 98.1
[2018-08-19] MEDS ORDERED: LIDOCAINE 1% 20 ML VIAL (10MG/ML) FOR IV START INTRADERMA ONE (12:11)
[2018-08-19] MEDS ORDERED: PROPOFOL 10 MG/ML 20 ML VIAL IV ONE (12:24)
[2018-08-19] MEDS ORDERED: LIDOCAINE 1% INJ 10MG/ML (20 ML MDV) ONE (12:24)
--- NOTE | 2018-08-19 12:26 | P.GSHP ---
History of Present Illness H&P Date: 08/19/18 Chief Complaint: dysphagia this is a 53-year-old female who's had some complaints of dysphagia. Patient had a previous laparoscopic hiatal hernia repair she has felt dysphagia and some chest pressure. She presents today for EGD with balloon dilatation of GE junction. Past Medical History Past Medical History: GERD/Reflux, Osteoarthritis (OA) Additional Past Medical History / Comment(s): DYSPHAGIA;OCCASIONAL HEART PALPITATIONS,PAST RUPTURED DISC- CHRONIC BACK PAIN , PAST HX OF ANOREXIA & BULEMIA., PANCREATITIS, History of Any Multi-Drug Resistant Organisms: None Reported Past Surgical History: Section, Hernia Repair, Tubal Ligation Additional Past Surgical History / Comment(s): HYSTEROSCOPY/D&C, EGD W/ BX-NEG, HIATAL HERNIA REPAIR Past Anesthesia/Blood Transfusion Reactions: Motion Sickness, Postoperative Nausea & Vomiting (PONV) Smoking Status: Former smoker - Past Family History Father Family Medical History: Cancer Additional Family Medical History / Comment(s): LUNG CA Brother(s) Family Medical History: CVA/TIA Medications and Allergies Home Medications Medication Instructions Recorded Confirmed Type Acetaminophen Tab [Tylenol Tab] 650 mg PO Q4H PRN 08/17/18 08/19/18 History FLUoxetine HCL [PROzac] 20 mg PO HS 08/17/18 08/19/18 History Allergies Allergy/AdvReac Type Severity Reaction Status Date / Time codeine AdvReac Severe Nausea & Verified 08/19/18 11:35 Vomiting Surgical - Exam Vital Signs Temp Pulse Resp BP Pulse Ox 98.1 F 71 16 115/68 96 08/19/18 11:52 08/19/18 11:52 08/19/18 11:52 08/19/18 11:52 08/19/18 11:52 - General well developed, no distress - Eyes PERRL - ENT normal pinna - Neck no masses - Respiratory normal expansion - Cardiovascular Rhythm: regular - Abdomen Abdomen: soft, non tender Assessment and Plan Assessment: sedation. We'll perform EGD with balloon dilatation of GE junction.
--- NOTE | 2018-08-19 12:44 | P.OP ---
Date of Procedure: 08/19/18 Preoperative Diagnosis: dysphagia Postoperative Diagnosis: dysphagia Procedure(s) Performed: EGD with balloon dilatation Anesthesia: MAC Surgeon: Sunny Schmidt Pathology: none sent Condition: stable Disposition: PACU Description of Procedure: patient's placed on the endoscopy table in the lateral position. She received IV sedation. The gastroscope placed oropharynx passed in the esophagus into the stomach. Scope then placed through the pylorus. First and second portion duodenum appeared normal. The scope was then brought back the antrum appeared normal. Scope was unretroflexed and remainder some appeared normal. There is no evidence of a hiatal hernia. The scope was then brought back to the level of the GE junction and appeared to be a slight narrowing of the GE junction. At this point a 20 mm balloon was placed across the GE junction this was held in position for 3 minutes. It was done sequentially 3 times. The balloon was then withdrawn. The GE junction was examined. There iwas no evidence ofy injury to the GE junction. Scope was then brought back into the distal esophagus this appeared normal. The proximal esophagus appeared normal. Scope was withdrawn for patient.
[2018-08-19 13:06] VITALS: BP 106/65; PULSE 66
== END 2018-08-19 13:29 | disposition home or self-care (01) ==
LOC: ORWHC2ENDO 11:15
PROVIDERS: ATTEND Surgery
DX: K22.2 Esophageal obstruction (principal); K21.9 Gastro-esophageal reflux disease without esophagitis; G89.29 Other chronic pain; M54.9 Dorsalgia, unspecified; M19.90 Unspecified osteoarthritis, unspecified site; Z88.5 Allergy status to narcotic agent; Z79.899 Other long term (current) drug therapy; Z87.891 Personal history of nicotine dependence; Z79.891 Long term (current) use of opiate analgesic
CPT/HCPCS: 43249; J2001; J2704; C1726

== ENCOUNTER → 2018-08-30 | Outpatient (CLI) | payer OTHER | END | disposition home or self-care (01) | LOC: LABPAT 12:09 | PROVIDERS: ATTEND Surgery | DX: Z01.812 Encounter for preprocedural laboratory examination (principal); R13.10 Dysphagia, unspecified | CPT/HCPCS: 36415; 86850; 86900; 86901 ==

== ENCOUNTER 2019-01-23 10:36 | Inpatient (IN) | payer OTHER ==
[2019-01-23] MEDS ORDERED: SODIUM CHLORIDE 0.9% 2,000 ML IV STA (11:30)
[2019-01-23] MEDS ORDERED: ONDANSETRON 4 MG/2 ML VIAL IVP STA (11:51)
[2019-01-23] MEDS ORDERED: FAMOTIDINE 20 MG/2 ML VIAL IV STA (11:51)
--- NOTE | 2019-01-23 11:53 | ED ---
Abdominal Pain HPI - General Chief Complaint: Abdominal Pain Stated Complaint: nausea, headache, abd pain Time Seen by Provider: 01/23/19 11:30 Source: patient, RN notes reviewed Mode of arrival: ambulatory Limitations: no limitations - History of Present Illness Initial Comments: This a 53-year-old female sent emergency Department chief complaint of mi dabdominal pain. Patient states his started last couple days that she's had some nausea vomiting diarrhea. Patient has a history of pancreatitis. Patient states that she concerned that she may be having issues with this. She did admit that she a large stone it a few days ago this is when symptoms started. She's had no problems with her gallbladder. Patient denies any fevers or chills. Denies any chest pain or shortness of breath. She does state that she's had 2 prior hiatal hernia repairs in the past. Patient denies any dysuria, hematuria. - Related Data Home Medications Medication Instructions Recorded Confirmed FLUoxetine HCL [PROzac] 20 mg PO HS 08/17/18 01/23/19 Allergies Allergy/AdvReac Type Severity Reaction Status Date / Time codeine AdvReac Severe Nausea & Verified 01/23/19 11:16 Vomiting Review of Systems ROS Statement: Those systems with pertinent positive or pertinent negative responses have been documented in the HPI. ROS Other: All systems not noted in ROS Statement are negative. Past Medical History Past Medical History: GERD/Reflux, Osteoarthritis (OA) Additional Past Medical History / Comment(s): DYSPHAGIA;OCCASIONAL HEART PALPITATIONS, PANCREATITIS,MIGRAINE History of Any Multi-Drug Resistant Organisms: None Reported Past Surgical History: Section, Hernia Repair, Tubal Ligation Additional Past Surgical History / Comment(s): HYSTEROSCOPY/D&C, EGD, HIATAL H ERNIA REPAIR Past Anesthesia/Blood Transfusion Reactions: Motion Sickness, Postoperative Nausea & Vomiting (PONV) Additional Past Anesthesia/Blood Transfusion Reaction / Comment(s): SEVERE VOMITING POST OP Past Psychological History: Depression Smoking Status: Former smoker Past Alcohol Use History: None Reported Past Drug Use History: None Reported - Past Family History Father Family Medical History: Cancer Additional Family Medical History / Comment(s): LUNG CA Brother(s) Family Medical History: CVA/TIA General Exam Limitations: no limitations General appearance: alert, in no apparent distress Head exam: Present: atraumatic, normocephalic, normal inspection Eye exam: Present: normal appearance, PERRL, EOMI. Absent: scleral icterus, conjunctival injection, periorbital swelling Neck exam: Present: normal inspection. Absent: tenderness, meningismus, lymphadenopathy Respiratory exam: Present: normal lung sounds bilaterally. Absent: respiratory distress, wheezes, rales, rhonchi, stridor Cardiovascular Exam: Present: regular rate, normal rhythm, normal heart sounds. Absent: systolic murmur, diastolic murmur, rubs, gallop, clicks GI/Abdominal exam: Present: soft, tenderness (Mild mid abdominal tenderness), normal bowel sounds. Absent: distended, guarding, rebound, rigid Back exam: Absent: CVA tenderness (R), CVA tenderness (L) Skin exam: Present: warm, dry, intact, normal color. Absent: rash Course Vital Signs 01/23/19 01/23/19 10:55 12:14 Temperature 97.9 F Pulse Rate 73 60 Respiratory 18 18 Rate Blood Pressure 118/65 111/57 O2 Sat by Pulse 98 95 Oximetry Medical Decision Making - Medical Decision Making 53-year-old female presented for abdominal discomfort, nausea vomiting diarrhea. Patient has acute pancreatitis. He'll be admitted for IV hydration. - Lab Data Result diagrams: 01/23/19 11:15 01/23/19 11:15 Lab Results 01/23/19 01/23/19 01/23/19 Range/Units 11:15 11:15 11:15 WBC 6.7 (3.8-10.6) k/uL RBC 4.87 (3.80-5.40) m/uL Hgb 14.3 (11.4-16.0) gm/dL Hct 44.6 (34.0-46.0) % MCV 91.5 (80.0-100.0) fL MCH 29.3 (25.0-35.0) pg MCHC 32.1 (31.0-37.0) g/dL RDW 13.3 (11.5-15.5) % Plt Count 321 (150-450) k/uL Neutrophils % 49 % Lymphocytes % 41 % Monocytes % 6 % Eosinophils % 3 % Basophils % 1 % Neutrophils # 3.2 (1.3-7.7) k/uL Lymphocytes # 2.7 (1.0-4.8) k/uL Monocytes # 0.4 (0-1.0) k/uL Eosinophils # 0.2 (0-0.7) k/uL Basophils # 0.0 (0-0.2) k/uL Sodium 140 (137-145) mmol/L Potassium 4.4 (3.5-5.1) mmol/L Chloride 109 H (98-107) mmol/L Carbon Dioxide 24 (22-30) mmol/L Anion Gap 7 mmol/L BUN 12 (7-17) mg/dL Creatinine 0.64 (0.52-1.04) mg/dL Est GFR (CKD-EPI)AfAm >90 (>60 ml/min/1.73 sqM) Est GFR (CKD-EPI)NonAf >90 (>60 ml/min/1.73 sqM) Glucose 89 (74-99) mg/dL Calcium 9.7 (8.4-10.2) mg/dL Total Bilirubin 0.5 (0.2-1.3) mg/dL AST 36 (14-36) U/L ALT 60 H (9-52) U/L Alkaline Phosphatase 102 (38-126) U/L Total Protein 7.4 (6.3-8.2) g/dL Albumin 4.4 (3.5-5.0) g/dL Amylase 296 H (30-110) U/L Lipase 3763 H (23-300) U/L Urine Color Yellow Urine Appearance Cloudy H (Clear) Urine pH 5.5 (5.0-8.0) Ur Specific Carpenter 1.025 (1.001-1.035) Urine Protein 1+ H (Negative) Urine Glucose (UA) Negative (Negative) Urine Ketones Negative (Negative) Urine Blood Negative (Negative) Urine Nitrite Negative (Negative) Urine Bilirubin Negative (Negative) Urine Urobilinogen <2.0 (<2.0) mg/dL Ur Leukocyte Esterase Negative (Negative) Urine RBC 1 (0-5) /hpf Urine WBC 8 H (0-5) /hpf Ur Squamous Epith Cells 9 H (0-4) /hpf Calcium Oxalate Crystal Moderate H (None) /hpf Hyaline Casts 62 H (0-2) /lpf Urine Mucus Many H (None) /hpf Disposition Clinical Impression: Acute pancreatitis Disposition: ADMITTED IP TO THIS HOSP Condition: Fair Referrals: Isaias Romero DO [Primary Care Provider] - 1-2 days
[2019-01-23 11:58] LABS: Appearance,Urine Cloudy (Clear); Bilirubin,Urine Negative (Negative); Blood,Urine Negative (Negative); Calcium Oxalate Crystals,Urine Moderate /hpf; Color,Urine Yellow; Glucose,Urine (UA) Negative (Negative); Hyaline Casts,Urine 62 /lpf (0-2); Ketones,Urine Negative (Negative); Leukocyte Esterase,Urine Negative (Negative); Mucus,Urine Many /hpf; Nitrite,Urine Negative (Negative); PH, Urine 5.5 (5.0-8.0); Protein,Urine 1+ (Negative); RBC,Urine 1 /hpf (0-5); Specific Gravity,Urine 1.025 (1.001-1.035); Squamous Epithelial Cell,Urine 9 /hpf (0-4); Urobilinogen,Urine <2.0 mg/dL (<2.0); WBC,Urine 8 /hpf (0-5)
[2019-01-23 12:04] LABS: ALT 60 U/L (9-52); AST 36 U/L (14-36); Albumin 4.4 g/dL (3.5-5.0); Alkaline Phosphatase 102 U/L (38-126); Amylase 296 U/L (30-110); Anion Gap 7 mmol/L; Blood Urea Nitrogen 12 mg/dL (7-17); Calcium 9.7 mg/dL (8.4-10.2); Carbon Dioxide 24 mmol/L (22-30); Chloride 109 mmol/L (98-107); Glucose 89 mg/dL (74-99); Potassium 4.4 mmol/L (3.5-5.1); Sodium 140 mmol/L (137-145); Total Bilirubin 0.5 mg/dL (0.2-1.3); Total Protein 7.4 g/dL (6.3-8.2)
[2019-01-23 12:09] LABS: Basophils % (A) 1 %; Eosinophils # (A) 0.2 k/uL (0-0.7); Eosinophils % (A) 3 %; HCT 44.6 % (34.0-46.0); HGB 14.3 gm/dL (11.4-16.0); Lymphocytes # (A) 2.7 k/uL (1.0-4.8); Lymphocytes % (A) 41 %; MCH 29.3 pg (25.0-35.0); MCHC 32.1 g/dL (31.0-37.0); MCV 91.5 fL (80.0-100.0); Mean Platelet Volume 8.7; Monocytes # (A) 0.4 k/uL (0-1.0); Monocytes % (A) 6 %; Neutrophils # (A) 3.2 k/uL (1.3-7.7); Neutrophils % (A) 49 %; Platelet Count 321 k/uL (150-450); RBC 4.87 m/uL (3.80-5.40); RDW 13.3 % (11.5-15.5); WBC 6.7 k/uL (3.8-10.6)
[2019-01-23 12:39] LABS: Lipase 3763 U/L (23-300)
[2019-01-23] MEDS ORDERED: MORPHINE SULFATE 4 MG/ML SYRINGE IV PRN (12:50)
[2019-01-23] MEDS ORDERED: HYDROcodone/APAP 5-325MG 1 EACH TAB PO PRN (12:50)
[2019-01-23] MEDS ORDERED: NALOXONE 0.4 MG/ML 1 ML VIAL IV PRN (12:50)
[2019-01-23] MEDS: SODIUM CHLORIDE 0.9% 1,000 ML IV SCH ×2 (14:02→20:14)
--- NOTE | 2019-01-23 14:22 | XR ---
EXAMINATION TYPE: XR KUB DATE OF EXAM: 01/23/2019 2:16 PM CLINICAL HISTORY: Abdominal pain. History of pancreatitis TECHNIQUE: Single supine KUB image of the abdomen is obtained. COMPARISON: None. FINDINGS: Scattered air-fluid levels are seen within nondilated bowel. No differential air-fluid leve ls. Gas and fecal material is seen in nondilated colon. There is no visceromegaly, pneumoperitoneum, or abnormal calcification appreciated. The lung bases are clear and the osseous structures are intact . Tubal ligation clips are seen within the pelvis. IMPRESSION: Scattered air-fluid levels within nondilated small bowel suggests mild ileus.
[2019-01-23 15:28] VITALS: RESP 16
[2019-01-23] MEDS ORDERED: HYDROmorphone 0.5 MG/0.5 ML SYRINGE IVP PRN (17:32)
[2019-01-23] MEDS: PANTOPRAZOLE 40 MG/10 ML VIAL IVP SCH (17:58)
[2019-01-23] MEDS: ACETAMINOPHEN TAB 325 MG TAB PO PRN (20:12)
[2019-01-23] MEDS: ONDANSETRON 4 MG/2 ML VIAL IVP PRN (20:21)
[2019-01-23] MEDS ORDERED: FLUoxetine HCL 20 MG CAP PO SCH (21:45)
[2019-01-24] MEDS: SODIUM CHLORIDE 0.9% 1,000 ML IV SCH ×2 (05:36→13:28)
[2019-01-24] MEDS: PANTOPRAZOLE 40 MG/10 ML VIAL IVP SCH (07:09)
[2019-01-24 09:29] LABS: ALT 45 U/L (9-52); AST 30 U/L (14-36); Albumin 3.9 g/dL (3.5-5.0); Alkaline Phosphatase 87 U/L (38-126); Anion Gap 6 mmol/L; Blood Urea Nitrogen 6 mg/dL (7-17); Calcium 9.1 mg/dL (8.4-10.2); Carbon Dioxide 27 mmol/L (22-30); Chloride 109 mmol/L (98-107); Glucose 88 mg/dL (74-99); Lipase 220 U/L (23-300); Potassium 4.5 mmol/L (3.5-5.1); Sodium 142 mmol/L (137-145); Total Bilirubin 0.5 mg/dL (0.2-1.3); Total Protein 6.7 g/dL (6.3-8.2)
[2019-01-24] MEDS: ACETAMINOPHEN TAB 325 MG TAB PO PRN (10:00)
[2019-01-24 12:00] LABS: Cholesterol 208 mg/dL (<200); HDL Cholesterol 45 mg/dL (40-60); LDL Cholesterol,Calculated 136 mg/dL (0-99); Triglycerides 134 mg/dL (<150)
--- NOTE | 2019-01-24 12:49 | P.CONS ---
History of Present Illness - Reason for Consult Consult date: 01/24/19 Pancreatitis Requesting physician: Harlan Santiago - Chief Complaint Abdominal pain - History of Present Illness 53-year-old female with a history of laparoscopic hiatal hernia fundoplication September 2018, nonalcoholic pancreatitis presents with acute abdominal pain nausea vomiting nonbloody diarrhea elevated pancreatic enzymes. Admission lipase 3763 presently 220. Amylase 296. LFTs unremarkable. White count 6.7. Hemoglobin 14.3. ARACELIS 2016 negative. IgG subclass 1-4 and 2016 IgG2 168. KUB scattered air-fluid levels and nondilated small bowel mild ileus. EGDs in the past with no evidence of peptic ulcer disease. Previous ultrasound of gallbladder acalculus. She was referred in the past [facility] for pancreatitis a few years ago but does not recall having endoscopic ultrasound or MRI imaging. Denies weight loss fever chills. No bleeding. Feels better today. Passing flatus. Review of Systems Constitutional: Denies fever, chills, sweats, weight gain, or loss. HEENT: Negative for migraines, blurred vision or loss, earaches, drainage, tinnitus, oral mucosal lesions, dysphagia, or odynophagia. CARDIAC: Negative for chest pain, arrhythmias, or palpitation. RESPIRATORY: Negative for shortness of breath, hemoptysis, cough, or sputum production. GI: See HPI for pertinent findings. : Negative for hematuria, urgency, frequency, polyuria, or dysuria. GYNc: Denies possibility of . Negative vaginal discharge. MUSCULOSKELETAL: Negative for muscle aches, swelling, arthritis, and arthralgias. NEUROLOGIC: Negative for stroke or TIA. ENDOCRINE: Negative for thyroid problems. SKIN: Negative for rash or itching. PSYCHIATRIC: Negative history for depression and anxiety Past Medical History Past Medical History: GERD/Reflux, Osteoarthritis (OA) Additional Past Medical History / Comment(s): Pancreatitis, dysphagia, arthritis in bilateral hands, migraines, occasional heart palpitations, bilateral leg varicosities. History of Any Multi-Drug Resistant Organisms: None Reported Past Surgical History: Section, Hernia Repair, Tubal Ligation Additional Past Surgical History / Comment(s): HYSTEROSCOPY/D&C, EGD, COLONOSCOPY, HIATAL HERNIA REPAIR TWICE. Past Anesthesia/Blood Transfusion Reactions: Motion Sickness, Postoperative Nausea & Vomiting (PONV) Additional Past Anesthesia/Blood Transfusion Reaction / Comm: SEVERE VOMITING POST OP Smoking Status: Former smoker - Past Family History Father Family Medical History: Cancer Additional Family Medical History / Comment(s): LUNG CA Brother(s) Family Medical History: CVA/TIA, Myocardial Infarction ([place]) Additional Family Medical History / Comment(s): Pt has 2 brothers with CVAs and one brother with a [place] Mother Family Medical History: No Reported History Additional Family Medical History / Comment(s): Mother is healthy and in her 80s. Medications and Allergies Home Medications Medication Instructions Recorded Confirmed Type FLUoxetine HCL [PROzac] 20 mg PO HS 08/17/18 01/23/19 History Allergies Allergy/AdvReac Type Severity Reaction Status Date / Time codeine AdvReac Severe Nausea & Verified 01/23/19 11:16 Vomiting Physical Exam Vitals: Vital Signs Temp Pulse Pulse Resp BP BP Pulse Ox 01/24/19 05:15 97.0 F L 66 16 132/72 98 01/23/19 21:26 97.7 F 67 16 130/69 98 01/23/19 15:00 96.6 F L 59 L 16 126/77 98 01/23/19 13:54 70 18 121/70 100 Intake and Output 01/23/19 01/24/19 01/24/19 22:59 06:59 14:59 Other: Voiding Method Toilet # Voids 1 5 General appearance: The patient is alert, oriented, in no acute distress. HET: Head is normocephalic and atraumatic. Pupils are equal and reactive. Oropharynx is clear without lesions. Neck: Supple without lymphadenopathy. Trachea midline. Heart: S1 S2. Regular rate and rhythm. Lungs: No crackles or wheezes are heard. Abdomen: Soft, very mild tenderness across the upper abdomen, nondistended with bowel sounds. No peritoneal signs. No palpable organomegaly or masses. Extremities: Normal skin color and turgor. No cyanosis, rash, ulceration, clubbing, or edema. Radial and pedal pulses are 2/4 bilaterally. Neurological: No focal deficits. Strength and sensation are grossly intact. Results CBC & Chem 7: 01/23/19 11:15 01/24/19 08:03 Labs: Abnormal Lab Results - Last 24 Hours (Table) 01/23/19 01/24/19 01/24/19 Range/Units 11:15 08:03 08:03 Chloride 109 H (98-107) mmol/L BUN 6 L (7-17) mg/dL Cholesterol 208 H (<200) mg/dL LDL Cholesterol, Calc 136 H (0-99) mg/dL Lipase 3763 H (23-300) U/L Abdominal x-ray: report reviewed (Dr. Ruano) Assessment and Plan (1) Acute pancreatitis Narrative/Plan: 53-year-old female with a history of recurrent pancreatitis without clear etiology. Current Visit: Yes Status: Acute Code(s): K85.90 - ACUTE PANCREATITIS WITHOUT NECROSIS OR INFECTION, UNSP SNOMED Code(s): 586607277 Plan: 1. Low-fat diet pancreatic enzymes are improved. Discharge if diet as tolerated. Return to office in 3-4 weeks for reevaluation. Recommend outpatient MRI pancreas and EUS will set referral process up with Eusebio Diaz hepatobiliary specialist per patient request. Thank you for this kind referral and the opportunity to participate in the care of your patient. This consultation was discussed with Dr. Ruano. The im pression and plan of care have been directed as dictated.
[2019-01-24 13:19] VITALS: BP 121/76; PULSE 58; TEMP 97.8
[2019-01-24] MEDS: ONDANSETRON 4 MG/2 ML VIAL IVP PRN (13:27)
--- NOTE | 2019-01-24 14:36 | P.HPIM ---
History of Present Illness H&P Date: 01/24/19 Chief Complaint: Epigastric pain There is a very pleasant 53 of female past medical history significant for pancreatitis comes in with above-mentioned complaint. The patient says that she's been having abdominal discomfort and pain for the past few days. She tried to take care of it at home by been nothing by mouth and taking a lot of fluids but symptoms did not improve, so the patient came to the ER for further evaluation and management. The patient otherwise does not complain of any nausea vomiting or Any diarrhea constipation, she does not complain of any tingling numbness of any extremities, and additional rest. She said that initially she was having diarrhea which was oily but now her stools are normal. ER course-lab work was done which showed WBC 6.7 hemoglobin 14.3 initial lipase was 3763. Lipase this morning improved to 220. Patient's vitals were stable. Patient was started on IV fluids and admitted to the hospitalist service a further admission and management Review of Systems All systems: negative Past Medical History Past Medical History: GERD/Reflux, Osteoarthritis (OA) Additional Past Medical History / Comment(s): Pancreatitis, dysphagia, arthritis in bilateral hands, migraines, occasional heart palpitations, bilateral leg varicosities. History of Any Multi-Drug Resistant Organisms: None Reported Past Surgical History: Section, Hernia Repair, Tubal Ligation Additional Past Surgical History / Comment(s): HYSTEROSCOPY/D&C, EGD, COLONOSCOPY, HIATAL HERNIA REPAIR TWICE. Past Anesthesia/Blood Transfusion Reactions: Motion Sickness, Postoperative Nausea & Vomiting (PONV) Additional Past Anesthesia/Blood Transfusion Reaction / Comment(s): SEVERE VOMITING POST OP Smoking Status: Former smoker - Past Family History Father Family Medical History: Cancer Additional Family Medical History / Comment(s): LUNG CA Brother(s) Family Medical History: CVA/TIA, Myocardial Infarction ([place]) Additional Family Medical History / Comment(s): Pt has 2 brothers with CVAs and one brother with a [place] Mother Family Medical History: No Reported History Additional Family Medical History / Comment(s): Mother is healthy and in her 80s. Medications and Allergies Home Medications Medication Instructions Recorded Confirmed Type FLUoxetine HCL [PROzac] 20 mg PO HS 08/17/18 01/23/19 History Allergies Allergy/AdvReac Type Severity Reaction Status Date / Time codeine AdvReac Severe Nausea & Verified 01/23/19 11:16 Vomiting Physical Exam Vitals: Vital Signs Temp Pulse Resp BP Pulse Ox 01/24/19 13:19 97.8 F 58 L 16 121/76 98 01/24/19 05:15 97.0 F L 66 16 132/72 98 01/23/19 21:26 97.7 F 67 16 130/69 98 01/23/19 15:00 96.6 F L 59 L 16 126/77 98 Intake and Output 01/23/19 01/24/19 01/24/19 22:59 06:59 14:59 Other: Voiding Method Toilet # Voids 1 5 3 # Bowel Movements 0 On exam, alert and oriented x3. HEENT: Conjunctivae normal. eyes normal. NECK: No JVD. No thyroid enlargement. No LNs CARDIOVASCULAR: S1, S2 muffled. No murmur RESPIRATION: Breath sounds heard equally bilaterally. No rhonchi or rales and wheezing ABDOMEN: Soft, nontender . No guarding. no masses palpable. No ascites, No hepatosplenomegaly.Bowel sounds heard. LEGS: No edema. no swelling NERVOUS SYSTEM: Cranial N 2-12 grossly normal. Moves all 4 limbs. No focal d eficits. No sensory deficit. No signs of cerebellar dysfucntion. Skin: no ulcer no rash Results CBC & Chem 7: 01/23/19 11:15 01/24/19 08:03 Labs: Abnormal Lab Results - Last 24 Hours (Table) 01/24/19 01/24/19 Range/Units 08:03 08:03 Chloride 109 H (98-107) mmol/L BUN 6 L (7-17) mg/dL Cholesterol 208 H (<200) mg/dL LDL Cholesterol, Calc 136 H (0-99) mg/dL Thrombosis Risk Factor Assmnt - Choose All That Apply Any of the Below Risk Factors Present?: Yes Each Factor Represents 1 point: Age 41-60 years, Obesity (BMI >25), Varicose veins Other Risk Factors: No Other congenital or acquired thrombophilia - If yes, enter type in comment: No Thrombosis Risk Factor Assessment Total Risk Factor Score: 3 Thrombosis Risk Factor Assessment Level: Moderate Risk Assessment and Plan Assessment: - Acute recurrent pancreatitis - History of GERD - History of osteoarthritis Plan - Patient is admitted to MedSurg - Patient is on clear liquid diet. Patient says that she has no pain right now and is tolerating the clear liquid diet good. We'll advance the diet as tolerated. - We'll continue the IV fluids - If the patient is able to tolerate the diet without any abdominal pain and if the GI clears the patient, patient can be discharged later on in the day - DVT and GI prophylaxis - Patient is full code Time with Patient: Greater than 30
[2019-01-25] MEDS ORDERED: PANTOPRAZOLE 40 MG TABLET PO SCH (07:30)
== END 2019-01-24 16:50 | disposition home or self-care (01) | DRG 439 ==
LOC: EC 10:36 → 4MS4W 13:31
PROVIDERS: ADMIT Hospitalist; ATTEND Hospitalist
DX: K85.90 Acute pancreatitis without necrosis or infection, unspecified (principal); K56.7 Ileus, unspecified; K86.1 Other chronic pancreatitis; K21.9 Gastro-esophageal reflux disease without esophagitis; M19.041 Primary osteoarthritis, right hand; M19.042 Primary osteoarthritis, left hand; Z80.1 Family history of malignant neoplasm of trachea, bronchus and lung; Z82.3 Family history of stroke; Z82.49 Family history of ischemic heart disease and other diseases of the circulatory system; Z87.891 Personal history of nicotine dependence; G43.909 Migraine, unspecified, not intractable, without status migrainosus; Z88.5 Allergy status to narcotic agent; I83.93 Asymptomatic varicose veins of bilateral lower extremities; Z79.899 Other long term (current) drug therapy; R13.10 Dysphagia, unspecified
CPT/HCPCS: 36415; 74018; 80053; 80061; 81001; 82150; 83690; 85025; 96361; 96374; 96375; 99284

== ENCOUNTER 2019-02-06 22:21 | Emergency (ER) | payer OTHER ==
[2019-02-06 23:10] VITALS: TEMP 97.9
--- NOTE | 2019-02-07 00:17 | ED ---
Nausea/Vomiting/Diarrhea HPI - General Chief complaint: Nausea/Vomiting/Diarrhea Stated complaint: Pancreatitis Time Seen by Provider: 02/06/19 23:44 Source: patient Mode of arrival: ambulatory Limitations: no limitations - History of Present Illness Initial comments: This patient is a 53-year-old woman who presents with a concern that she believes her pancreatitis is flaring up again. She states that today she has been feeling rundown, generally not well, having a little bit of nausea and that her bowel movement was loose and floating. She states last time she felt like this she was diagnosed with pancreatitis. She states that she does have a biopsy scheduled for later in the month to figure out the etiology, but at this point it is unknown what led to her developing pancreatitis. Patient denies any abdominal pain. She is not having vomiting. MD complaint: nausea -: days(s) Improves with: none Worsens with: none Associated Symptoms: nausea/vomiting - Related Data Home Medications Medication Instructions Recorded Confirmed FLUoxetine HCL [PROzac] 20 mg PO HS 08/17/18 01/23/19 Previous Rx's Medication Instructions Recorded Ondansetron Odt [Zofran ODT] 4 mg PO Q8HR PRN #10 tab 02/07/19 Allergies Allergy/AdvReac Type Severity Reaction Status Date / Time codeine AdvReac Severe Nausea & Verified 02/06/19 23:10 Vomiting Review of Systems ROS Statement: Those systems with pertinent positive or pertinent negative responses have been documented in the HPI. ROS Other: All systems not noted in ROS Statement are negative. Constitutional: Denies: fever, chills Respiratory: Denies: cough, dyspnea Cardiovascular: Denies: chest pain, palpitations Gastrointestinal: Reports: nausea, diarrhea. Denies: abdominal pain, vomiting, constipation, melena, hematochezia Musculoskeletal: Denies: back pain Skin: Denies: rash Neurological: Reports: headache. Denies: weakness, numbness Past Medical History Past Medical History: GERD/Reflux, Osteoarthritis (OA) Additional Past Medical History / Comment(s): Pancreatitis, dysphagia, arthritis in bilateral hands, migraines, occasional heart palpitations, bilateral leg varicosities. History of Any Multi-Drug Resistant Organisms: None Reported Past Surgical History: Section, Hernia Repair, Tubal Ligation Additional Past Surgical History / Comment(s): HYSTEROSCOPY/D&C, EGD, COLONOSCOPY, HIATAL HERNIA REPAIR TWICE. Past Anesthesia/Blood Transfusion Reactions: Motion Sickness, Postoperative Nausea & Vomiting (PONV) Additional Past Anesthesia/Blood Transfusion Reaction / Comment(s): SEVERE VOMITING POST OP Past Psychological History: Depression Smoking Status: Former smoker - Past Family History Father Family Medical History: Cancer Additional Family Medical History / Comment(s): LUNG CA Brother(s) Family Medical History: CVA/TIA, Myocardial Infarction ([place]) Additional Family Medical History / Comment(s): Pt has 2 brothers with CVAs and one brother with a [place] Mother Family Medical History: No Reported History Additional Family Medical History / Comment(s): Mother is healthy and in her 80s. General Exam Limitations: no limitations General appearance: alert, in no apparent distress Head exam: Present: atraumatic, normocephalic Eye exam: Present: normal appearance. Absent: scleral icterus, conjunctival injection ENT exam: Present: normal oropharynx Respiratory exam: Present: normal lung sounds bilaterally. Absent: respiratory distress, wheezes, rales, rhonchi, stridor Cardiovascular Exam: Present: regular rate, normal rhythm, normal heart sounds. Absent: systolic murmur, diastolic murmur, rubs, gallop GI/Abdominal exam: Present: soft. Absent: distended, tenderness, guarding, rebound, rigid, mass Extremities exam: Present: normal inspection, normal capillary refill. Absent: pedal edema, calf tenderness Back exam: Present: normal inspection. Absent: CVA tenderness (R), CVA tendern ess (L) Neurological exam: Present: alert Skin exam: Present: warm, dry, intact, normal color. Absent: rash Course Vital Signs 02/06/19 02/07/19 23:07 02:04 Temperature 97.9 F Pulse Rate 67 71 Respiratory 18 16 Rate Blood Pressure 129/78 122/77 O2 Sat by Pulse 97 100 Oximetry Medical Decision Making - Lab Data Result diagrams: 02/07/19 00:15 02/07/19 00:15 Lab Results 02/07/19 02/07/19 Range/Units 00:15 00:15 WBC 8.2 (3.8-10.6) k/uL RBC 4.68 (3.80-5.40) m/uL Hgb 14.0 (11.4-16.0) gm/dL Hct 41.5 (34.0-46.0) % MCV 88.7 (80.0-100.0) fL MCH 29.9 (25.0-35.0) pg MCHC 33.7 (31.0-37.0) g/dL RDW 13.0 (11.5-15.5) % Plt Count 261 (150-450) k/uL Neutrophils % 41 % Lymphocytes % 46 % Monocytes % 7 % Eosinophils % 3 % Basophils % 1 % Neutrophils # 3.4 (1.3-7.7) k/uL Lymphocytes # 3.8 (1.0-4.8) k/uL Monocytes # 0.6 (0-1.0) k/uL Eosinophils # 0.2 (0-0.7) k/uL Basophils # 0.0 (0-0.2) k/uL Sodium 140 (137-145) mmol/L Potassium 4.3 (3.5-5.1) mmol/L Chloride 106 (98-107) mmol/L Carbon Dioxide 26 (22-30) mmol/L Anion Gap 8 mmol/L BUN 16 (7-17) mg/dL Creatinine 0.54 (0.52-1.04) mg/dL Est GFR (CKD-EPI)AfAm >90 (>60 ml/min/1.73 sqM) Est GFR (CKD-EPI)NonAf >90 (>60 ml/min/1.73 sqM) Glucose 96 (74-99) mg/dL Calcium 9.9 (8.4-10.2) mg/dL Total Bilirubin 0.2 (0.2-1.3) mg/dL AST 66 H (14-36) U/L ALT 79 H (9-52) U/L Alkaline Phosphatase 152 H (38-126) U/L Total Protein 7.1 (6.3-8.2) g/dL Albumin 4.3 (3.5-5.0) g/dL Amylase 98 (30-110) U/L Lipase 266 (23-300) U/L Disposition Clinical Impression: Nausea Disposition: HOME SELF-CARE Condition: Good Instructions (If sedation given, give patient instructions): Acute Nausea and Vomiting (ED) Prescriptions: Ondansetron Odt [Zofran ODT] 4 mg PO Q8HR PRN #10 tab PRN Reason: Nausea Is patient prescribed a controlled substance at d/c from ED?: No Referrals: Isaias Romero DO [Primary Care Provider] - 1-2 days Darnell Diaz MD [STAFF PHYSICIAN] - 1-2 days
[2019-02-07 00:32] LABS: Basophils % (A) 1 %; Eosinophils # (A) 0.2 k/uL (0-0.7); Eosinophils % (A) 3 %; HCT 41.5 % (34.0-46.0); Lymphocytes # (A) 3.8 k/uL (1.0-4.8); Lymphocytes % (A) 46 %; MCH 29.9 pg (25.0-35.0); MCHC 33.7 g/dL (31.0-37.0); MCV 88.7 fL (80.0-100.0); Mean Platelet Volume 8.6; Monocytes # (A) 0.6 k/uL (0-1.0); Monocytes % (A) 7 %; Neutrophils # (A) 3.4 k/uL (1.3-7.7); Neutrophils % (A) 41 %; Platelet Count 261 k/uL (150-450); RBC 4.68 m/uL (3.80-5.40); WBC 8.2 k/uL (3.8-10.6)
[2019-02-07 01:03] LABS: ALT 79 U/L (9-52); AST 66 U/L (14-36); Albumin 4.3 g/dL (3.5-5.0); Alkaline Phosphatase 152 U/L (38-126); Amylase 98 U/L (30-110); Anion Gap 8 mmol/L; Blood Urea Nitrogen 16 mg/dL (7-17); Calcium 9.9 mg/dL (8.4-10.2); Carbon Dioxide 26 mmol/L (22-30); Chloride 106 mmol/L (98-107); Glucose 96 mg/dL (74-99); Lipase 266 U/L (23-300); Potassium 4.3 mmol/L (3.5-5.1); Sodium 140 mmol/L (137-145); Total Bilirubin 0.2 mg/dL (0.2-1.3); Total Protein 7.1 g/dL (6.3-8.2)
[2019-02-07 02:05] VITALS: BP 122/77; PULSE 71; RESP 16
== END 2019-02-07 02:03 ==
LOC: EC 22:21
DX: R11.0 Nausea (principal); F32.9 Major depressive disorder, single episode, unspecified; Z79.899 Other long term (current) drug therapy; Z88.5 Allergy status to narcotic agent; Z87.891 Personal history of nicotine dependence
CPT/HCPCS: 36415; 80053; 82150; 83690; 85025; 99284

== ENCOUNTER → 2019-04-19 | Outpatient (CLI) | payer OTHER ==
--- NOTE | 2019-04-19 13:14 | US ---
EXAMINATION TYPE: US pelvis complete transvag DATE OF EXAM: 04/19/2019 COMPARISON: NONE CLINICAL HISTORY: N95.0 Post menopausal bleeding. Patient states not having a period x 1 year. PMB. Left side discomfort. TECHNIQUE: Transvaginal (TV) and Transabdominal (TA) . Transabdominal sonographic images of the pel vis were acquired. Transvaginal sonographic images were medically necessary to better assess the fol lowing anatomy: Endometrium, ovaries Date of LMP: 2017 EXAM MEASUREMENTS: Uterus: 11.1 x 7.4 x 5.6 cm Endometrial Stripe: 1.7 cm Right Ovary: 2.8 x 1.8 x 2.3 cm 1. Uterus: Anteverted Heterogenous. Enlarged in size. Posterior LASHELL focal lesion seen=2.1 x 1.6 x 1.2 cm 2. Endometrium: Thickened and heterogenous. Due to heterogenicity, difficult to determine presence or absence of lesion. 3. Right Ovary: Follicles seen. 4. Left Ovary: Obscured by overlying bowel gas 5. Bilateral Adnexa: wnl 6. Posterior cul-de-sac: no free fluid Cervix- nabothian cysts IMPRESSION: 1. Uterus is heterogeneous and enlarged measuring 11.1 cm. Within the lower uterine segment posterior ly there is a 2.1 cm hypoechoic nodule likely related to uterine fibroid. 2. Endometrium is thickened and heterogeneous correlate for endometrial pathology including hyperplas ia. Carcinoma not excluded.
== END | disposition home or self-care (01) ==
LOC: RADUSWWP 11:58
PROVIDERS: ATTEND Family Medicine
DX: N95.0 Postmenopausal bleeding (principal)
CPT/HCPCS: 76830; 76856

== ENCOUNTER → 2019-05-24 | Outpatient (CLI) | payer OTHER ==
--- NOTE | 2019-05-25 10:28 | MM ---
Reason for exam: screening (asymptomatic). Last mammogram was performed 6 years and 9 months ago. History: Patient is postmenopausal. Took hormonal contraceptives for 5 years 8 months. Physical Findings: A clinical breast exam by your physician is recommended on an annual basis and results should be correlated with mammographic findings. MG 3D Screening Mammo W/Cad Bilateral CC and MLO view(s) were taken. Prior study comparison: August 19, 2012, bilateral screening mammogram free. The breast tissue is heterogeneously dense. This may lower the sensitivity of mammography. Benign appearing bilateral calcifications. No suspicious abnormality. No significant changes when compared with prior studies. ASSESSMENT: Benign, BI-RAD 2 RECOMMENDATION: Routine screening mammogram of both breasts in 1 year.
== END | disposition home or self-care (01) ==
LOC: RADMAMWWP 15:16
PROVIDERS: ATTEND Family Medicine
DX: Z12.31 Encounter for screening mammogram for malignant neoplasm of breast (principal)
CPT/HCPCS: 77063; 77067

== ENCOUNTER → 2019-05-30 | Outpatient (CLI) | payer OTHER ==
[2019-05-30 16:37] LABS: Basophils % (A) 0 %; Eosinophils # (A) 0.1 k/uL (0-0.7); Eosinophils % (A) 1 %; HCT 35.7 % (34.0-46.0); HGB 11.3 gm/dL (11.4-16.0); Hypochromasia Moderate; Lymphocytes # (A) 2.8 k/uL (1.0-4.8); Lymphocytes % (A) 40 %; MCH 29.8 pg (25.0-35.0); MCHC 31.7 g/dL (31.0-37.0); Mean Platelet Volume 8.3; Monocytes # (A) 0.4 k/uL (0-1.0); Monocytes % (A) 6 %; Neutrophils # (A) 3.5 k/uL (1.3-7.7); Neutrophils % (A) 50 %; Platelet Count 377 k/uL (150-450); RDW 13.8 % (11.5-15.5); WBC 7.1 k/uL (3.8-10.6)
== END | disposition home or self-care (01) ==
LOC: LABPAT 15:58
PROVIDERS: ATTEND Obstetrics & Gynecology
DX: Z01.818 Encounter for other preprocedural examination (principal); Z01.812 Encounter for preprocedural laboratory examination
CPT/HCPCS: 36415; 85025; 93005

== ENCOUNTER → 2019-06-09 | Day surgery (SDC) | payer OTHER ==
[2019-06-07 09:21] VITALS: BMI 30.9
--- NOTE | 2019-06-08 13:06 | P.HPOB ---
History of Present Illness H&P Date: 06/08/19 Chief Complaint: Postmenopausal bleeding, endometrial thickening This is a 54-year-old female 2 para 2 who presents for dilation and curettage with hysteroscopy secondary to postmenopausal bleeding and endometrial thickening. She states she has not had a period in at least 18 months and then started having some spotting with strenuous activity for the last 6-8 months. The bleeding became heavier and she did see another physician for this problem. She did have an endometrial biopsy in April 2019 that was benign. Ultrasound was performed and uterus measured 11.1 x 7.4 x 5.6 cm with an endometrial stripe thickness of 1.7 cm. Right ovary had normal follicles and left ovary was not visualized. There was a focal what appeared to be fibroid measuring 2.1 cm. She was placed on Prometrium and bled very heavily with this and had to stop it. Her bleeding did finally stop a few weeks ago. She would like definitive treatment for her postmenopausal bleeding and endometrial thickening. She has consented to dilation and curettage with hysteroscopy. Obstetrical history: . History of 1 vaginal delivery and 1 delivery. Gynecologic history: No history of sexual transmitted diseases. Social history: She is and is a homemaker. Review of Systems Constitutional: Denies chills, Denies fever Eyes: denies blurred vision, denies pain Ears, nose, mouth and throat: Denies headache, Denies sore throat Cardiovascular: Denies chest pain, Denies shortness of breath Respiratory: Denies cough Gastrointestinal: Denies abdominal pain, Denies diarrhea, Denies nausea, Denies vomiting Genitourinary: Reports abnormal vaginal bleeding, Reports pelvic pain (Some cramping) Menstruation: Reports postmenopausal Musculoskeletal: Denies myalgias Integumentary: Denies pruritus, Denies rash Neurological: Denies numbness, Denies weakness Psychiatric: Denies anxiety, Denies depression Past Medical History Past Medical History: GERD/Reflux, Osteoarthritis (OA) Additional Past Medical History / Comment(s): Pancreatitis-chronic, migraines, occasional heart palpitations, bilateral leg varicose veins. Current flare up of inflammed disc in back. History of Any Multi-Drug Resistant Organisms: None Reported Past Surgical History: Section, Hernia Repair, Tubal Ligation Additional Past Surgical History / Comment(s): HYSTEROSCOPY/D&C-January 2016, EGD, COLONOSCOPY, HIATAL HERNIA REPAIR X2. Past Anesthesia/Blood Transfusion Reactions: Motion Sickness, Postoperative Nausea & Vomiting (PONV) Additional Past Anesthesia/Blood Transfusion Reaction / Comment(s): SEVERE VOMITING POST OP. Past Psychological History: Depression Smoking Status: Former smoker Past Alcohol Use History: None Reported Additional Past Alcohol Use History / Comment(s): STARTED AT AGE 16 QUIT 2009/ smoked 1 -1 1/2 PPD. Past Drug Use History: None Reported - Past Family History Father Family Medical History: Cancer Additional Family Medical History / Comment(s): LUNG CA. Brother(s) Family Medical History: CVA/TIA, Myocardial Infarction ([place]) Additional Family Medical History / Comment(s): Pt has 2 brothers with CVAs and one brother with a [place]. Mother Family Medical History: No Reported History Additional Family Medical History / Comment(s): Mother is healthy and in her 80s. Son(s) Family Medical History: Blood Disorder Additional Family Medical History / Comment(s): [employer]. Medications and Allergies Home Medications Medication Instructions Recorded Confirmed Type FLUoxetine HCL [PROzac] 40 mg PO HS 08/17/18 06/07/19 History Acetaminophen [Tylenol Extra 1,000 mg PO Q4H PRN 06/07/19 06/07/19 History Strength] Protonix (Unknown Dose) 1 tab PO DAILY PRN 06/07/19 06/07/19 History Allergies Allergy/AdvReac Type Severity Reaction Status Date / Time codeine AdvReac Severe Nausea & Verified 06/07/19 09:04 Vomiting Exam Osteopathic Statement: *. No significant issues noted on an osteopathic structural exam other than those noted in the History and Physical/Consult. HEENT: Within normal limits Heart: Regular rate and rhythm Lungs: Clear to auscultation bilaterally Abdomen: Soft, nontender Pelvic exam: Uterus is lightly enlarged, anteverted, nontender, with no adnexal masses or tenderness noted. Extremities: Negative Homans Assessment and Plan (1) Postmenopausal bleeding Status: Acute Code(s): N95.0 - POSTMENOPAUSAL BLEEDING SNOMED Code(s): 86219404 (2) Endometrial thickening on ultrasound Status: Acute Code(s): R93.89 - ABNORMAL FINDINGS ON DX IMAGING OF OTH BODY STRUCTURES SNOMED Code(s): 618936813 Plan: Proceed with dilation and curettage with hysteroscopy. I have discussed the risks, benefits, and alternative therapies for the above- mentioned procedure and for both sedation/anesthesia as well as necessary blood products administration, if indicated, as they pertain to this patient. The patient has indicated her understanding and acceptance of the risks and procedures discussed.
[~2019-06-09] MED LIST changes: +DEXAMETHASONE SOD PHOSPHATE 10 MG/ML 1 ML VIAL IV ONE; +KETOROLAC 30 MG/ML 1 ML VIAL ONE; +LIDOCAINE 1% INJ 10MG/ML (20 ML MDV) ONE; +MIDAZOLAM 2 MG/2 ML VIAL IV PRN; +MIDAZOLAM 2 MG/2 ML VIAL ONE; +ONDANSETRON 4 MG/2 ML VIAL IVP ONE; +PROPOFOL 10 MG/ML 20 ML VIAL IV ONE; +Pre Op ABX Message 1 EACH MISC MISCELLANE ONE; +SCOPOLAMINE 1.5MG/72HR PATCH TRANSDERM ONE; +SUCCINYLCHOLINE CHLORIDE 100 MG/5 ML SYR IV ONE; +fentaNYL (PF) 50 MCG/ML 2 ML AMP IV PRN; +fentaNYL (PF) 50 MCG/ML 2 ML AMP ONE
[2019-06-09 06:31] VITALS: RESP 16
--- NOTE | 2019-06-09 07:48 | P.OP ---
Date of Procedure: 06/09/19 Preoperative Diagnosis: Post menopausal bleeding Endometrial thickening Postoperative Diagnosis: Same Procedure(s) Performed: Dilation and curettage with hysteroscopy Anesthesia: VINCE Surgeon: Gaviota Garcia Estimated Blood Loss (ml): 3 Pathology: other (Endometrial curettings) Condition: stable Disposition: same day Indications for Procedure: This is a 54-year-old female 2 para 2 who presents for dilation and curettage with hysteroscopy secondary to postmenopausal bleeding and endometrial thickening. She states she has not had a period in at least 18 months and then started having some spotting with strenuous activity for the last 6-8 months. The bleeding became heavier and she did see another physician for this problem. She did have an endometrial biopsy in April 2019 that was benign. Ultrasound was performed and uterus measured 11.1 x 7.4 x 5.6 cm with an endometrial stripe thickness of 1.7 cm. Right ovary had normal follicles and left ovary was not visualized. There was a focal what appeared to be fibroid measuring 2.1 cm. She was placed on Prometrium and bled very heavily with this and had to stop it. Her bleeding did finally stop a few weeks ago. She would like definitive treatment for her postmenopausal bleeding and endometrial thickening. She has consented to dilation and curettage with hysteroscopy. Operative Findings: Uterus is anteverted and sounded to 8/2 cm. Cervical os is stenotic. No adnexal masses are palpated. Upon hysteroscopy, both tubal ostia are visualized. Relatively atrophic pattern was noted however there was a polyp extending from the left side of the uterus. Scant endometrial curettings are obtained. Description of Procedure: The patient was taken to the operating room where she is placed in the dorsal lithotomy position. She is prepped and draped in the normal sterile fashion. Her bladder was drained with a catheter and then removed. Examination is performed under anesthesia. Uterus is found to be slightly enlarged and anteverted. No adnexal masses are palpated. Next a weighted speculum was placed in the patient's vagina and a right angle retractor was used to visualize the anterior lip of the cervix. The anterior lip of the cervix is grasped with a single-tooth tenaculum. Next the cervix was attempted to be sounded however it was noted to be stenotic. A hemostat was used to open up the cervix and then the uterus was sounded to 8-1/2 cm. Cervix is gently dilated with Hernandez dilators until a hysteroscope could be passed. Hysteroscopy is performed using normal saline. The above noted findings are made and pictures are taken. Next the hysteroscope was removed and the cervix is gently dilated further. X a polyp forcep was introduced and a small amount of polypoid tissue was obtained. Next a medium-size sharp curet was introduced and sharp curettage was performed until a gritty texture was noted. A minimal further amount of tissue was obtained. Next the single-tooth tenaculum was removed from the anterior lip of the cervix and no bleeding was noted. All other incisions are removed from the vagina. All sponge counts are correct. The patient is then taken to recovery room in stable condition.
[2019-06-09 07:58] VITALS: TEMP 97.7
[2019-06-09 09:57] VITALS: BP 106/68; PULSE 77
== END | disposition home or self-care (01) ==
LOC: OR 06:06
PROVIDERS: ATTEND Obstetrics & Gynecology
DX: N95.0 Postmenopausal bleeding (principal); N84.0 Polyp of corpus uteri; K21.9 Gastro-esophageal reflux disease without esophagitis; M19.90 Unspecified osteoarthritis, unspecified site; F32.9 Major depressive disorder, single episode, unspecified; Z87.891 Personal history of nicotine dependence; Z82.3 Family history of stroke; Z82.49 Family history of ischemic heart disease and other diseases of the circulatory system; Z88.5 Allergy status to narcotic agent
CPT/HCPCS: 81025; 88305; 58558; J2250; J1100; J2405; J2001; J3010; J1885; J0330; J2704

== ENCOUNTER → 2019-10-04 | Outpatient (CLI) | payer MEDICAID ==
--- NOTE | 2019-10-05 07:16 | US ---
EXAMINATION TYPE: US pelvis complete transvag DATE OF EXAM: 10/04/2019 COMPARISON: US 04/19/2019 CLINICAL HISTORY: N95.0 post-menopausal bleeding, R10.2 pelvic pain. Patient denies pelvic pain; ; C section x 1 TECHNIQUE: Transvaginal (TV) and Transabdominal (TA) . Transabdominal sonographic images of the pel vis were acquired. Transvaginal sonographic images were medically necessary to better assess the fol lowing anatomy: endometrium Date of LMP: normal LMP 3-4 years ago, then menopause x 1 year followed with post menopausal bleedi ng last year after D&C. EXAM MEASUREMENTS: Uterus: 11.4 x 6.8x 5.2 cm Endometrial Stripe: 2.1 cm A/P on TV US Right Ovary: 1.3 x 1.1 x 1.6 cm Left Ovary: 1.9 x 1.4 x 1.3 cm 1. Uterus: Anteverted; large Nabothian Cyst = 1.7 x 1.8 x 1.4cm seen in cervix; hypoechoic oval mass seen in LASHELL with uterine fibroid appearance = 1.9 x 1.4 x 1.3cm. This previously measured 2.1 x 1.6 x 1.2 cm on the exam of 04/19/2019. Differences in size likely relate to differences in obliquity. No interval growth. 2. Endometrium: non discreet borders, abnormally thickened post menopausal, especially on Transverse View. 3. Right Ovary: small follicles 4. Left Ovary: small involuting follicle seen TA and TV US. 5. Bilateral Adnexa: wnl 6. Posterior cul-de-sac: wnl IMPRESSION: 1. Again the endometrium is abnormally thickened for a postmenopausal female measuring up to 2.1 cm. Direct visualization is recommended. Considerations are for endometrial hyperplasia, endometrial mass , or endometrial polyp. 2. Redemonstration of a probable lower uterine segment leiomyoma with no interval growth from the favio or.
== END | disposition home or self-care (01) ==
LOC: RADUSMAIN 16:01
PROVIDERS: ATTEND Obstetrics & Gynecology
DX: R93.89 Abnormal findings on diagnostic imaging of other specified body structures (principal); R10.2 Pelvic and perineal pain; N95.0 Postmenopausal bleeding
CPT/HCPCS: 76830; 76856

== ENCOUNTER → 2019-11-29 | Outpatient (CLI) | payer MEDICAID ==
[2019-11-29 14:12] LABS: African American GFR (CKD) >90 (>60 ml/min/1.73 sqM); Anion Gap 7 mmol/L; Blood Urea Nitrogen 16 mg/dL (7-17); Calcium 9.5 mg/dL (8.4-10.2); Carbon Dioxide 25 mmol/L (22-30); Chloride 107 mmol/L (98-107); Glucose 88 mg/dL (74-99); Non-African American GFR(CKD) >90 (>60 ml/min/1.73 sqM); Potassium 4.9 mmol/L (3.5-5.1); Sodium 139 mmol/L (137-145)
[2019-11-29 14:20] LABS: Basophils % (A) 1 %; Eosinophils # (A) 0.1 k/uL (0-0.7); Eosinophils % (A) 2 %; HCT 40.3 % (34.0-46.0); HGB 12.5 gm/dL (11.4-16.0); Lymphocytes # (A) 2.7 k/uL (1.0-4.8); Lymphocytes % (A) 44 %; MCH 27.5 pg (25.0-35.0); MCHC 31.1 g/dL (31.0-37.0); MCV 88.5 fL (80.0-100.0); Mean Platelet Volume 9.7; Monocytes # (A) 0.3 k/uL (0-1.0); Monocytes % (A) 5 %; Neutrophils # (A) 2.8 k/uL (1.3-7.7); Neutrophils % (A) 46 %; Platelet Count 278 k/uL (150-450); RBC 4.56 m/uL (3.80-5.40); RDW 14.6 % (11.5-15.5); WBC 6.1 k/uL (3.8-10.6)
== END | disposition home or self-care (01) ==
LOC: LABPAT 13:34
PROVIDERS: ATTEND Obstetrics & Gynecology
DX: Z01.812 Encounter for preprocedural laboratory examination (principal)
CPT/HCPCS: 36415; 80048; 85025

== ENCOUNTER 2019-12-07 06:00 | Inpatient (IN) | payer MEDICAID ==
[2019-11-30 12:07] VITALS: BMI 30.6
--- NOTE | 2019-12-06 13:26 | P.HPOB ---
History of Present Illness H&P Date: 12/06/19 Chief Complaint: Persistent postmenopausal bleeding This is a 54 y.o. female, 2, para 2 who presents for total abdominal hysterectomy with bilateral salpingooophorectomy due to persistent postmenopausal bleeding. She had no period for almost 18 months, and then began having spotting with strenuous activity. She had a benign endometrial biopsy and was started on Prometrium which caused her to bleed very heavy. She underwent a D&C with hysteroscopy in June 2019 that also showed an endometrial polyp with non-atypical hyperplasia. Since then she had a 10 day long period in September that was very heavy. Ultrasound 10/19/2019 showed uterus 11.4 x 6.8 x 5.2 cm, with lower uterine segment fibroid measuring 1.9 cm. Ovaries showed small follicles. Endometrial strip was 2.1 cm. She has requested hysterectomy at this time. OB Hx: . 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 Has had a tubal ligation. Social Hx: . Homemaker. Review of Systems Constitutional: Denies chills, Denies fever Eyes: denies blurred vision, denies pain Ears, nose, mouth and throat: Reports headache, Denies sore throat Cardiovascular: Denies chest pain, Denies shortness of breath Respiratory: Denies cough Gastrointestinal: Reports heartburn, Denies abdominal pain, Denies diarrhea, Denies nausea, Denies vomiting Genitourinary: Reports abnormal vaginal bleeding, Reports pelvic pain Menstruation: Reports postmenopausal Musculoskeletal: Reports low back pain Integumentary: Denies pruritus, Denies rash Neurological: Denies numbness, Denies weakness Psychiatric: Reports anxiety, Reports depression Past Medical History Past Medical History: GERD/Reflux, Osteoarthritis (OA) Additional Past Medical History / Comment(s): Pancreatitis-chronic, migraines, occasional heart palpitations, bilateral leg varicose veins. hx inflammation disc in back. History of Any Multi-Drug Resistant Organisms: None Reported Past Surgical History: Section, Hernia Repair, Tubal Ligation Additional Past Surgical History / Comment(s): HYSTEROSCOPY/D&C-January 2016, 06/2019; EGD, COLONOSCOPY, HIATAL HERNIA REPAIR X2. Past Anesthesia/Blood Transfusion Reactions: Motion Sickness, Postoperative Nausea & Vomiting (PONV) Additional Past Anesthesia/Blood Transfusion Reaction / Comment(s): SEVERE VOMITING POST OP- states was medicated with IV and scopolamine that helped Past Psychological History: Depression Additional Psychological History / Comment(s): Pt resides with her spouse. She is independent. Smoking Status: Former smoker Past Alcohol Use History: None Reported Additional Past Alcohol Use History / Comment(s): STARTED AT AGE 16 QUIT 2009/ smoked 1 -1 1/2 PPD. Past Drug Use History: Marijuana Additional Drug Use History / Comment(s): OCCASIONAL USE - Past Family History Father Family Medical History: Cancer Additional Family Medical History / Comment(s): LUNG CA. Brother(s) Family Medical History: CVA/TIA, Myocardial Infarction ([place]) Additional Family Medical History / Comment(s): Pt has 2 brothers with CVAs and one brother with a CT. Mother Family Medical History: No Reported History Additional Family Medical History / Comment(s): Mother is healthy and in her 80s. Son(s) Family Medical History: Blood Disorder Additional Family Medical History / Comment(s): [employer]. Medications and Allergies Home Medications Medication Instructions Recorded Confirmed Type FLUoxetine HCL [PROzac] 20 mg PO HS 08/17/18 12/07/19 History Pantoprazole Sodium [Protonix] 20 mg PO DAILY 11/30/19 12/07/19 History SUMAtriptan SUCCINATE [Imitrex] 100 mg PO DAILY PRN 11/30/19 12/07/19 History Allergies Allergy/AdvReac Type Severity Reaction Status Date / Time codeine AdvReac Severe Nausea & Verified 12/07/19 06:50 Vomiting Exam Osteopathic Statement: *. No significant issues noted on an osteopathic structural exam other than those noted in the History and Physical/Consult. HEENT: within normal limits Heart: regular rate and rhythm Lungs: clear to auscultation bilaterally Abdomen: soft, non-tender Pelvic: uterus sl. enlarged, anteverted, non-tender, with no adnexal masses palpated. Extremities: neg. Homans. Assessment and Plan (1) Endometrial hyperplasia without atypia, simple Current Visit: No Status: Acute Code(s): N85.01 - BENIGN ENDOMETRIAL HYPER PLASIA SNOMED Code(s): 073467775 (2) Endometrial thickening on ultrasound Current Visit: No Status: Acute Code(s): R93.89 - ABNORMAL FINDINGS ON DX IMAGING OF OTH BODY STRUCTURES SNOMED Code(s): 484343080 (3) Postmenopausal bleeding Current Visit: No Status: Acute Code(s): N95.0 - POSTMENOPAUSAL BLEEDING SNOMED Code(s): 33374715 Plan: Proceed with total abdominal hysterectomy with bilateral salpingooophorectomy. I have discussed the risks, benefits, and alternative therapies for the above- mentioned procedure and for both sedation/anesthesia as well as necessary blood products administration, if indicated, as they pertain to this patient. The patient has indicated her understanding and acceptance of the risks and procedures discussed.
[~2019-12-07 06:00] MED LIST changes: -KETOROLAC 30 MG/ML 1 ML VIAL ONE; +LIDOCAINE 1% 20 ML VIAL (10MG/ML) FOR IV START INTRADERMA PRN; -LIDOCAINE 1% INJ 10MG/ML (20 ML MDV) ONE; -MIDAZOLAM 2 MG/2 ML VIAL IV PRN; -MIDAZOLAM 2 MG/2 ML VIAL ONE; -ONDANSETRON 4 MG/2 ML VIAL IVP ONE; -PROPOFOL 10 MG/ML 20 ML VIAL IV ONE; -Pre Op ABX Message 1 EACH MISC MISCELLANE ONE; -SUCCINYLCHOLINE CHLORIDE 100 MG/5 ML SYR IV ONE; -fentaNYL (PF) 50 MCG/ML 2 ML AMP IV PRN; -fentaNYL (PF) 50 MCG/ML 2 ML AMP ONE
[2019-12-07] MEDS: ONDANSETRON 4 MG/2 ML VIAL IVP ONE ×2 (06:41→09:30)
[2019-12-07] MEDS ORDERED: MIDAZOLAM 2 MG/2 ML VIAL IV ONE (07:07)
[2019-12-07] MEDS ORDERED: fentaNYL (PF) 50 MCG/ML 2 ML AMP IV ONE (07:08)
[2019-12-07] MEDS ORDERED: NALOXONE 0.4 MG/ML 1 ML VIAL IV PRN (07:21)
[2019-12-07] MEDS ORDERED: MORPHINE SULFATE 2 MG/ML SYRINGE IVP PRN (07:21)
[2019-12-07] MEDS ORDERED: LIDOCAINE 1% INJ 10MG/ML (20 ML MDV) ONE (07:34)
[2019-12-07] MEDS ORDERED: PROPOFOL 10 MG/ML 20 ML VIAL IV ONE (07:34)
[2019-12-07] MEDS ORDERED: MORPHINE SULFATE (PF) 0.3 MG/0.3 ML SYR ONE (07:34)
[2019-12-07] MEDS ORDERED: NEOSTIGMINE 1 MG/ML 10 ML VIAL ONE (07:34)
[2019-12-07] MEDS ORDERED: MIDAZOLAM 2 MG/2 ML VIAL ONE (07:34)
[2019-12-07] MEDS ORDERED: fentaNYL (PF) 50 MCG/ML 2 ML AMP ONE (07:34)
[2019-12-07] MEDS ORDERED: ROCURONIUM BROMIDE 10 MG/ML 10 ML VIAL IV ONE (07:34)
[2019-12-07] MEDS ORDERED: PHENYLEPHRINE-0.9% NACL SYG 1 MG/10 ML SYRINGE ONE (07:34)
[2019-12-07] MEDS ORDERED: GLYCOPYRROLATE 0.2 MG/ML 2 ML VIAL ONE (07:34)
[2019-12-07] MEDS ORDERED: LACTATED RINGERS 1,000 ML IV ONE ×2 (08:46)
--- NOTE | 2019-12-07 08:57 | P.OP ---
Date of Procedure: 12/07/19 Preoperative Diagnosis: Postmenopausal bleeding Endometrial thickening History of non-atypical endometrial hyperplasia Postoperative Diagnosis: Same Procedure(s) Performed: Total abdominal hysterectomy with bilateral salpingo-oophorectomy Anesthesia: GETA, spinal (Duramorph) Surgeon: Gaviota Garcia Salesperson Floor Coverings #1: Zaki Burt Estimated Blood Loss (ml): 50 Pathology: other (Uterus with cervix, bilateral tubes and ovaries) Condition: stable Disposition: floor Indications for Procedure: This is a 54 y.o. female, 2, para 2 who presents for total abdominal hysterectomy with bilateral salpingooophorectomy due to persistent postmenopausal bleeding. She had no period for almost 18 months, and then began having spotting with strenuous activity. She had a benign endometrial biopsy and was started on Prometrium which caused her to bleed very heavy. She underwent a D&C with hysteroscopy in June 2019 that also showed an endometrial polyp with non-atypical hyperplasia. Since then she had a 10 day long period in September that was very heavy. Ultrasound 10/19/2019 showed uterus 11.4 x 6.8 x 5.2 cm, with lower uterine segment fibroid measuring 1.9 cm. Ovaries showed small follicles. Endometrial strip was 2.1 cm. She has requested hysterectomy at this time. Operative Findings: Uterus with small fibroid change noted. Normal ovaries bilaterally. Evidence of previous tubal ligation with Filshie clips. Description of Procedure: The patient is taken to the operating room where she is placed in the dorsal supine position. She is prepped and draped in the normal sterile fashion in cluding Hernandez catheter insertion and vaginal prep. A Pfannenstiel skin incision is made with a scalpel. A second knife was used to carry the incision down to the underlying layer of fascia. The fascia was nicked in the midline with a scalpel and then extended laterally bilaterally with Mckenna scissors. The superior aspect of the fascial incision was grasped with Kayleigh clamps, elevated off the underlying rectus muscle in the midline and then cut with Mckenna scissors. The inferior aspect of the fascial incision was grasped with Kayleigh clamps, elevated off the underlying rectus muscle in the midline and then cut with Mckenna scissors. Next the peritoneum was identified and entered sharply with Mckenna scissors. It is extended superiorly and in fairly with Metzenbaum scissors with good visualization of underlying structures. Next the Deric retractor is placed in the bladder blade was inserted. The bowels were packed with a 3 yard laparotomy sponge. Next the uterus is brought up incision and the corneal regions are grasped with Magda clamps on both sides. The infundibulopelvic ligament was clamped on either side with a Cat clamp, cut with Mckenna scissors, and sutured with 0 Vicryl suture in Cat transfixion stitches. The remaining uterine ovarian ligament and round ligament was clamped on either side with a Cat clamp, cut with Mckenna scissors, and sutured with 0 Vicryl suture in Cat transfixion stitches. The vesicouterine peritoneum was sharply dissected away from the bladder with Metzenbaum scissors and pushed inferiorly. The uterine arteries are clamped on either side with a Cat clamp. The uterine arteries are then cut with Mckenna scissors, and sutured with 0 Vicryl suture in Cat transfixion stitches. Next the cardinal ligaments were clamped on either side with Cat clamp, cut with Mckenna scissors, and sutured with 0 Vicryl suture in Cat transfixion stitches. The uterosacral ligaments are clamped on either side with Cat clamps, cut with Mckenna scissors, and sutured with 0 Vicryl suture in Cat transfixion stitches on either side. The edges of the vaginal cuff were clamped on either side with a Cat clamp, cut with Mckenna scissors, and sutured with 0 Vicryl suture in Cat transfixion stitches and held on either side. The vaginal mucosa was then cut just below the level of the cervix and the specimen is removed from the field. The edges of the vaginal cuff were held with Kayleigh clamps. Next the previously held corners of each side of the vaginal cuff were then whipstitched along the connective tissue on either side and brought through the corner of the cuff and tied. Next the vaginal cuff was sutured with 0 Vicryl suture in a running locked fashion. Good hemostasis was noted. Copious irrigation is carried out with warm saline. Excellent hemostasis is noted. All sponges are removed from the abdomen and sponge counts are correct. The peritoneum is then closed with 0 Vicryl suture in a running fashion. The muscle was then reapproximated with 0 Vicryl suture in interrupted fashion. The fascia layer is then closed with 0 PDS suture in a running fashion with the knots buried on either side and in the midline. Next the subcutaneous tissues closed with 2-0 Vicryl suture in a running fashion. The skin is closed with kirby. All sponge and needle counts are correct and the patient is taken to recovery room in stable condition.
[2019-12-07] MEDS ORDERED: KETOROLAC 30 MG/ML 1 ML VIAL IVP ONE (09:30)
[2019-12-07] MEDS: diphenhydrAMINE 50 MG/ML 1 ML VIAL IVP PRN ×3 (09:37→23:28)
[2019-12-07] MEDS: fentaNYL (PF) 50 MCG/ML 2 ML AMP IV PRN ×4 (09:37→10:09)
[2019-12-07] MEDS ORDERED: HYDROcodone/APAP 7.5-325MG 1 EACH TAB PO PRN (10:13)
[2019-12-07] MEDS ORDERED: diphenhydrAMINE 50 MG/ML 1 ML VIAL IVP PRN (10:13)
[2019-12-07] MEDS ORDERED: SUMAtriptan SUCCINATE 50 MG TAB PO PRN (10:13)
[2019-12-07] MEDS ORDERED: ZOLPIDEM 5 MG TAB PO PRN (10:13)
[2019-12-07] MEDS ORDERED: SIMETHICONE 80 MG CHEWABLE PO PRN (10:13)
[2019-12-07] MEDS ORDERED: ONDANSETRON 4 MG/2 ML VIAL IVP PRN (10:13)
[2019-12-07] MEDS ORDERED: HYDROcodone/APAP 5-325MG 1 EACH TAB PO PRN (10:13)
[2019-12-07] MEDS ORDERED: KETOROLAC 30 MG/ML 1 ML VIAL IVP PRN (10:13)
[2019-12-07] MEDS ORDERED: METOCLOPRAMIDE 5 MG/ML 2 ML VIAL IVP PRN (10:13)
[2019-12-07] MEDS: SENNOSIDES-DOCUSATE SODIUM 1 EACH TAB PO SCH ×2 (11:06→20:13)
[2019-12-07] MEDS: PANTOPRAZOLE 40 MG TABLET PO SCH (11:09)
[2019-12-07] MEDS: NALBUPHINE 10 MG/ML (1 ML AMP) IV PRN (12:08)
[2019-12-07] MEDS: LACTATED RINGERS 1,000 ML IV SCH (12:49)
[2019-12-07] MEDS: FLUoxetine HCL 20 MG CAP PO SCH (20:13)
[2019-12-08] MEDS: NALBUPHINE 10 MG/ML (1 ML AMP) IV PRN ×2 (00:32→06:21)
[2019-12-08] MEDS ORDERED: diphenhydrAMINE 50 MG/ML 1 ML VIAL IVP PRN (01:17)
[2019-12-08] MEDS: LACTATED RINGERS 1,000 ML IV SCH ×2 (06:36)
[2019-12-08 07:40] LABS: Basophils % (A) 0 %; Eosinophils % (A) 0 %; HCT 35.8 % (34.0-46.0); HGB 11.2 gm/dL (11.4-16.0); Lymphocytes # (A) 2.7 k/uL (1.0-4.8); Lymphocytes % (A) 29 %; MCH 28.2 pg (25.0-35.0); MCHC 31.3 g/dL (31.0-37.0); Mean Platelet Volume 9.1; Monocytes # (A) 0.6 k/uL (0-1.0); Monocytes % (A) 6 %; Neutrophils # (A) 5.6 k/uL (1.3-7.7); Neutrophils % (A) 61 %; Platelet Count 289 k/uL (150-450); RBC 3.98 m/uL (3.80-5.40); RDW 14.7 % (11.5-15.5); WBC 9.2 k/uL (3.8-10.6)
[2019-12-08] MEDS ORDERED: ACETAMINOPHEN TAB 325 MG TAB PO PRN (07:58)
--- NOTE | 2019-12-08 08:57 | P.PN ---
Subjective Progress Note Date: 12/08/19 Principal diagnosis: Status post ED/BSO postoperative day #1 Patient is doing well. She is ambulating. Her pain is fairly well controlled. She has minimal bleeding. She is urinating without difficulty. She is not passing flatus or bowel movement yet. Objective - Vital Signs Vital signs: Vital Signs Temp 98.6 F 12/07/19 23:00 Pulse 78 12/08/19 02:00 Resp 18 12/08/19 08:00 BP 98/62 12/07/19 23:00 Pulse Ox 96 12/08/19 04:00 Intake & Output 12/07/19 12/08/19 12/08/19 18:59 06:59 18:59 Intake Total 1350 540 Output Total 1150 1040 Balance 200 -500 Weight 83 kg Intake: IV 1350 Oral 540 Output: Urine 1100 1040 Uretheral (Hernandez) 640 Estimated Blood Loss 50 Other: Voiding Method Indwelling Catheter Indwelling Catheter - Constitutional General appearance: Present: no acute distress - Gastrointestinal Gastrointestinal Comment(s): Incision is clean dry and intact with kirby in place General gastrointestinal: Present: normal bowel sounds, soft. Absent: tenderness - Musculoskeletal Musculoskeletal Comment(s): Negative Homans bilaterally - Labs CBC & Chem 7: 12/08/19 06:30 Labs: Abnormal Lab Results - Last 24 Hours (Table) 12/08/19 Range/Units 06:30 Hgb 11.2 L (11.4-16.0) gm/dL Assessment and Plan Assessment: Status post ED/BSO postoperative day #1 (1) Endometrial hyperplasia without atypia, simple Current Visit: No Status: Acute Code(s): N85.01 - BENIGN ENDOMETRIAL HYPERPLASIA SNOMED Code(s): 209632187 (2) Endometrial thickening on ultrasound Current Visit: No Status: Acute Code(s): R93.89 - ABNORMAL FINDINGS ON DX IMAGING OF OTH BODY STRUCTURES SNOMED Code(s): 163496516 (3) Postmenopausal bleeding Current Visit: No Status: Acute Code(s): N95.0 - POSTMENOPAUSAL BLEEDING SNOMED Code(s): 90365244 Plan: Continue with postoperative care. Will advance diet starting at lunch. Patient is encouraged to ambulate. Will switch to oral pain medication today.
[2019-12-08 08:59] VITALS: RESP 16
[2019-12-08] MEDS: SENNOSIDES-DOCUSATE SODIUM 1 EACH TAB PO SCH ×2 (09:07→20:29)
[2019-12-08] MEDS: PANTOPRAZOLE 40 MG TABLET PO SCH (09:07)
[2019-12-08] MEDS ORDERED: diphenhydrAMINE 25 MG CAP PO PRN (15:36)
[2019-12-08] MEDS: IBUPROFEN 600 MG TAB PO PRN (18:51)
[2019-12-08] MEDS: FLUoxetine HCL 20 MG CAP PO SCH (20:33)
[2019-12-08 23:42] VITALS: TEMP 98.7
--- NOTE | 2019-12-09 08:05 | P.PN ---
Progress Note - Text 12/08 642am 54-year-old female status post total abdominal hysterectomy with a spinal anesthetic and Duramorph. She was seen and evaluated for postop pain control, patient had a VAS of 2 with no complaints of nausea vomiting. She did have pruritus which should get better.
[2019-12-09] MEDS: IBUPROFEN 600 MG TAB PO PRN (09:57)
[2019-12-09] MEDS: PANTOPRAZOLE 40 MG TABLET PO SCH (09:58)
[2019-12-09] MEDS: SENNOSIDES-DOCUSATE SODIUM 1 EACH TAB PO SCH (09:59)
--- NOTE | 2019-12-09 10:47 | P.DS ---
Providers Date of admission: 12/07/19 06:00 Expected date of discharge: 12/09/19 Attending physician: Gaviota Garcia Primary care physician: Isaias Romero - Discharge Diagnosis(es) (1) Endometrial hyperplasia without atypia, simple Current Visit: No Status: Acute (2) Endometrial thickening on ultrasound Current Visit: No Status: Acute (3) Postmenopausal bleeding Current Visit: No Status: Acute Hospital Course: This is a 54-year-old female who underwent a total abdominal hysterectomy with bilateral salpingo-oophorectomy on 12/07/2019. Postoperatively she has done well. She is passing flatus and bowel movement. She is urinating without difficulty. Her pain is fairly well controlled with ibuprofen. She has been afraid to take the [place] but would like a prescription to go home with. Vital signs are stable. Abdomen is soft with positive bowel sounds 4. Incision is clean dry and intact with kirby in place. Extremities show negative Hom[place]. Impression is status post total abdominal hysterectomy with bilateral salpingo- oophorectomy postoperative day #2. Plan is to discharge home today. Routine postoperative and instructions are given. She will be given a prescription for ibuprofen and [place]. She has been counseled regarding narcotic use and has signed a opioid start talking form. She is advised to follow up in the office in approximately 1 week for a postoperative check. [place] will be removed and Steri-Strips placed prior to discharge. She is advised to call the office if she has any further questions or concerns after discharge. Procedures: Total abdominal hysterectomy with bilateral salpingo-oophorectomy on 12/07/2019 Patient Condition at Discharge: Stable Plan - Discharge Summary Discharge Rx Participant: Yes New Discharge Prescriptions: New Ibuprofen [Motrin] 600 mg PO Q6HR PRN #60 tab PRN Reason: Mild Discomfort HYDROcodone/APAP 5-325MG [[place] 5-325] 1 each PO Q6HR PRN #18 tab PRN Reason: Moderate Pain Continue FLUoxetine HCL [PROzac] 20 mg PO HS SUMAtriptan SUCCINATE [Imitrex] 100 mg PO DAILY PRN PRN Reason: migraines Pantoprazole Sodium [Protonix] 20 mg PO DAILY Discharge Medication List FLUoxetine HCL [PROzac] 20 mg PO HS 08/17/18 [History] Pantoprazole Sodium [Protonix] 20 mg PO DAILY 11/30/19 [History] SUMAtriptan SUCCINATE [Imitrex] 100 mg PO DAILY PRN 11/30/19 [History] HYDROcodone/APAP 5-325MG [[place] 5-325] 1 each PO Q6HR PRN #18 tab 12/09/19 [Rx] Ibuprofen [Motrin] 600 mg PO Q6HR PRN #60 tab 12/09/19 [Rx] Follow up Appointment(s)/Referral(s): Gaviota Garcia DO [Doctor of Osteopathic Medicine] - 1 Week Activity/Diet/Wound Care/Special Instructions: Activity as tolerated. Diet as tolerated. May shower, but no tub baths for 1 week. No intercourse. No driving while on narcotic pain medication. No heavy lifting. Discharge Disposition: HOME SELF-CARE
[2019-12-09 11:02] VITALS: BP 131/84; PULSE 61
== END 2019-12-09 12:00 | disposition home or self-care (01) | DRG 743 ==
LOC: 2ORMAIN 06:00 → 6PED 09:10
PROVIDERS: ADMIT Obstetrics & Gynecology; ATTEND Obstetrics & Gynecology
PROC: 0UT20ZZ Resection of Bilateral Ovaries, Open Approach (ICD-10-PCS; 2019-12-07)
PROC: 0UT70ZZ Resection of Bilateral Fallopian Tubes, Open Approach (ICD-10-PCS; 2019-12-07)
PROC: 0UT90ZZ Resection of Uterus, Open Approach (ICD-10-PCS; principal; 2019-12-07 07:30)
DX: N85.00 Endometrial hyperplasia, unspecified (principal); N95.0 Postmenopausal bleeding; L29.9 Pruritus, unspecified; F32.9 Major depressive disorder, single episode, unspecified; R93.89 Abnormal findings on diagnostic imaging of other specified body structures; N83.292 Other ovarian cyst, left side; N83.291 Other ovarian cyst, right side; Z80.1 Family history of malignant neoplasm of trachea, bronchus and lung; Z79.899 Other long term (current) drug therapy; D25.9 Leiomyoma of uterus, unspecified; Z82.3 Family history of stroke; Z82.49 Family history of ischemic heart disease and other diseases of the circulatory system; Z87.891 Personal history of nicotine dependence; Z98.51 Tubal ligation status; Z88.5 Allergy status to narcotic agent
CPT/HCPCS: 85025; 86850; 86900; 86901; 88307

== ENCOUNTER 2020-04-24 21:11 | Emergency (ER) | payer MEDICAID ==
[2020-04-24] MEDS ORDERED: SODIUM CHLORIDE 0.9% 500 ML 500 ML IV STA (21:50)
[2020-04-24] MEDS ORDERED: SODIUM CHLORIDE 0.9% 1,000 ML IV STA (21:50)
[2020-04-24 22:21] LABS: Appearance,Urine Clear (Clear); Bilirubin,Urine Negative (Negative); Blood,Urine Negative (Negative); Color,Urine Yellow; Glucose,Urine (UA) Negative (Negative); Ketones,Urine Negative (Negative); Leukocyte Esterase,Urine Negative (Negative); Nitrite,Urine Negative (Negative); PH, Urine 5.5 (5.0-8.0); Protein,Urine Negative (Negative); Specific Gravity,Urine 1.026 (1.001-1.035)
[2020-04-24 22:25] LABS: Basophils # (A) 0.1 k/uL (0-0.2); Basophils % (A) 1 %; Eosinophils # (A) 0.2 k/uL (0-0.7); Eosinophils % (A) 3 %; HCT 42.6 % (34.0-46.0); HGB 13.9 gm/dL (11.4-16.0); Lymphocytes # (A) 3.7 k/uL (1.0-4.8); Lymphocytes % (A) 42 %; MCH 28.8 pg (25.0-35.0); MCHC 32.7 g/dL (31.0-37.0); MCV 88.2 fL (80.0-100.0); Mean Platelet Volume 10.1; Monocytes # (A) 0.6 k/uL (0-1.0); Monocytes % (A) 7 %; Neutrophils % (A) 46 %; Platelet Count 301 k/uL (150-450); RBC 4.83 m/uL (3.80-5.40); RDW 14.3 % (11.5-15.5); WBC 8.8 k/uL (3.8-10.6)
[2020-04-24 22:28] LABS: Albumin 4.3 g/dL (3.5-5.0); Calcium 9.6 mg/dL (8.4-10.2); Potassium 4.5 mmol/L (3.5-5.1); Total Bilirubin 0.2 mg/dL (0.2-1.3); Total Protein 7.3 g/dL (6.3-8.2)
--- NOTE | 2020-04-24 23:48 | ED ---
General Adult HPI - General Source: patient Mode of arrival: ambulatory Limitations: no limitations <Jose Luis Henning - Last Filed: 04/24/20 23:50> <Alondra Shay - Last Filed: 04/28/20 02:04> - General Chief complaint: Abdominal Pain Stated complaint: Abd Pain Time Seen by Provider: 04/24/20 21:29 - History of Present Illness Initial comments: 55-year-old female with a past medical history of chronic pancreatitis, migraines, GERD presents to the emergency department for a chief complaint of abdominal pain. Patient states she has had left upper quadrant pain for the past 4-5 days. States his pain is consistent with her chronic pancreatitis pain. States she has had several evaluations for this and everything is negative for the cause. States her gallbladder has been evaluated multiple times. Patient states she thinks she needs fluids. She has also had diarrhea for the past 4-5 days. Patient denies fevers or chills. Denies chest pain. Patient admits to nausea denies vomiting.Patient has no other complaints at this time including shortness of breath, chest pain, headache, or visual changes. (Jose Luis Henning) - Related Data Home Medications Medication Instructions Recorded Confirmed FLUoxetine HCL [PROzac] 20 mg PO HS 08/17/18 04/24/20 Pantoprazole Sodium [Protonix] 20 mg PO HS 11/30/19 04/24/20 SUMAtriptan SUCCINATE [Imitrex] 100 mg PO DAILY PRN 11/30/19 04/24/20 Fluticasone Nasal [place] [Flonase 1 spr EA NOSTRIL DAILY PRN 04/24/20 04/24/20 Nasal [place]] Previous Rx's Medication Instructions Recorded Dicyclomine [Bentyl] 20 mg PO TID PRN #20 tablet 04/24/20 Ondansetron [Zofran ODT] 4 mg PO Q8HR PRN #15 tab 04/24/20 Allergies Allergy/AdvReac Type Severity Reaction Status Date / Time codeine AdvReac Severe Nausea & Verified 04/24/20 22:20 Vomiting Review of Systems ROS Other: All systems not noted in ROS Statement are negative. <Jose Luis Henning - Last Filed: 04/24/20 23:50> ROS Other: All systems not noted in ROS Statement are negative. <Dov Shayah A - Last Filed: 04/28/20 02:04> ROS Statement: Those systems with pertinent positive or pertinent negative responses have been documented in the HPI. Past Medical History Past Medical History: GERD/Reflux, Osteoarthritis (OA) Additional Past Medical History / Comment(s): Pancreatitis-chronic, migraines, occasional heart palpitations, bilateral leg varicose veins. hx inflammation disc in back. History of Any Multi-Drug Resistant Organisms: None Reported Past Surgical History: Section, Hernia Repair, Tubal Ligation Additional Past Surgical History / Comment(s): HYSTEROSCOPY/D&C-January 2016, 06/2019; EGD, COLONOSCOPY, HIATAL HERNIA REPAIR X2. Past Anesthesia/Blood Transfusion Reactions: Motion Sickness, Postoperative Nausea & Vomiting (PONV) Additional Past Anesthesia/Blood Transfusion Reaction / Comment(s): SEVERE VOMITING POST OP- states was medicated with IV and scopolamine that helped Past Psychological History: Depression Smoking Status: Former smoker Past Alcohol Use History: None Reported Past Drug Use History: Marijuana - Past Family History Father Family Medical History: Cancer Additional Family Medical History / Comment(s): LUNG CA. Brother(s) Family Medical History: CVA/TIA, Myocardial Infarction ([place]) Additional Family Medical History / Comment(s): Pt has 2 brothers with CVAs and one brother with a HI. Mother Family Medical History: No Reported History Additional Family Medical History / Comment(s): Mother is healthy and in her 80s. Son(s) Family Medical History: Blood Disorder Additional Family Medical History / Comment(s): [employer]. <Jose Luis Henning P - Last Filed: 04/24/20 23:50> General Exam Limitations: no limitations General appearance: alert, in no apparent distress Head exam: Present: atraumatic, normocephalic, normal inspection Eye exam: Present: normal appearance, PERRL, EOMI. Absent: scleral icterus, conjunctival injection, periorbital swelling ENT exam: Present: normal exam, mucous membranes moist Neck exam: Present: normal inspection. Absent: tenderness, meningismus, lymphadenopathy Respiratory exam: Present: normal lung sounds bilaterally. Absent: respiratory distress, wheezes, rales, rhonchi, stridor Cardiovascular Exam: Present: regular rate, normal rhythm, normal heart sounds. Absent: systolic murmur, diastolic murmur, rubs, gallop, clicks GI/Abdominal exam: Present: soft, tenderness (Mild left upper quadrant tenderness without guarding or rebound), normal bowel sounds. Absent: distended, guarding, rebound, rigid <Jose Luis Henning - Last Filed: 04/24/20 23:50> Course Vital Signs 04/24/20 04/25/20 21:15 00:05 Temperature 98.2 F 97.4 F L Pulse Rate 83 59 L Respiratory 18 17 Rate Blood Pressure 142/85 140/80 O2 Sat by Pulse 97 99 Oximetry Medical Decision Making - Lab Data Result diagrams: 04/24/20 22:05 04/24/20 22:05 <Jose Luis Henning - Last Filed: 04/24/20 23:50> - Lab Data Result diagrams: 04/24/20 22:05 04/24/20 22:05 <Alondra Shay - Last Filed: 04/28/20 02:04> - Medical Decision Making Vitals are stable. HPI as documented. Patient is sitting up in a chair well appearing. Physical exam generally unremarkable however there is some mild left upper quadrant pain. Patient is having diarrhea associated with this for 4-5 days. Patient is refusing any pain medication stating she just needs fluids because this feels like her chronic pancreatitis. CBC CMP unremarkable. Amylase and lipase are with actually within normal limits. Urinalysis is negative. Patient states she is feeling much better after fluids. I did offer further workup as amylase and lipase were negative however patient wants to get home to her dog. Patient reports that she will return if she has any worsening symptoms. (Jose Luis Henning) I was available for consultation in the emergency department. The history and physical exam were done by the midlevel provider. I was consulted for this patients care. I reviewed the case with the midlevel provider and based on their presentation of the patient, I agree with the assessment, medical decision making and plan of care as documented. Chart was dictated using oboxo dictation software. Attempts were made to correct any dictation errors however some typographical errors may persist. Patient was seen during a national state of emergency due to the Covid-19 pandemic. (Alondra Shay) - Lab Data Lab Results 04/24/20 04/24/2020 Range/Units 22:05 22:05 22:05 WBC 8.8 (3.8-10.6) k/uL RBC 4.83 (3.80-5.40) m/uL Hgb 13.9 (11.4-16.0) gm/dL Hct 42.6 (34.0-46.0) % MCV 88.2 (80.0-100.0) fL MCH 28.8 (25.0-35.0) pg MCHC 32.7 (31.0-37.0) g/dL RDW 14.3 (11.5-15.5) % Plt Count 301 (150-450) k/uL Neutrophils % 46 % Lymphocytes % 42 % Monocytes % 7 % Eosinophils % 3 % Basophils % 1 % Neutrophils # 4.0 (1.3-7.7) k/uL Lymphocytes # 3.7 (1.0-4.8) k/uL Monocytes # 0.6 (0-1.0) k/uL Eosinophils # 0.2 (0-0.7) k/uL Basophils # 0.1 (0-0.2) k/uL Sodium 140 (137-145) mmol/L Potassium 4.5 (3.5-5.1) mmol/L Chloride 107 (98-107) mmol/L Carbon Dioxide 24 (22-30) mmol/L Anion Gap 9 mmol/L BUN 16 (7-17) mg/dL Creatinine 0.95 (0.52-1.04) mg/dL Est GFR (CKD-EPI)AfAm 78 (>60 ml/min/1.73 sqM) Est GFR (CKD-EPI)NonAf 68 (>60 ml/min/1.73 sqM) Glucose 88 (74-99) mg/dL Calcium 9.6 (8.4-10.2) mg/dL Total Bilirubin 0.2 (0.2-1.3) mg/dL AST 34 (14-36) U/L ALT 36 H (4-34) U/L Alkaline Phosphatase 104 (38-126) U/L Total Protein 7.3 (6.3-8.2) g/dL Albumin 4.3 (3.5-5.0) g/dL Amylase 64 (30-110) U/L Lipase 175 (23-300) U/L Urine Color Yellow Urine Appearance Clear (Clear) Urine pH 5.5 (5.0-8.0) Ur Specific [place] 1.026 (1.001-1.035) Urine Protein Negative (Negative) Urine Glucose (UA) Negative (Negative) Urine Ketones Negative (Negative) Urine Blood Negative (Negative) Urine Nitrite Negative (Negative) Urine Bilirubin Negative (Negative) Urine Urobilinogen 2.0 (<2.0) mg/dL Ur Leukocyte Esterase Negative (Negative) Disposition Is patient prescribed a controlled substance at d/c from ED?: No Time of Disposition: 23:48 <Jose Luis Henning - Last Filed: 04/24/20 23:50> <Alondra Shay - Last Filed: 04/28/20 02:04> Clinical Impression: Abdominal pain Disposition: HOME SELF-CARE Condition: Good Instructions (If sedation given, give patient instructions): Abdominal Pain (ED) Additional Instructions: Please follow-up with your doctor in one to 2 days. Take Bentyl and Zofran as needed. If you have any worsening symptoms return here to the emergency room. Prescriptions: Dicyclomine [Bentyl] 20 mg PO TID PRN #20 tablet PRN Reason: abdominal pain Ondansetron [Zofran ODT] 4 mg PO Q8HR PRN #15 tab PRN Reason: Nausea Referrals: Isaias Romero DO [Primary Care Provider] - 1-2 days
[2020-04-25 00:07] VITALS: BP 140/80; PULSE 59; RESP 17; TEMP 97.4
== END 2020-04-25 00:06 | disposition home or self-care (01) ==
LOC: EC 21:11
DX: R10.12 Left upper quadrant pain (principal); R19.7 Diarrhea, unspecified; K21.9 Gastro-esophageal reflux disease without esophagitis; F32.9 Major depressive disorder, single episode, unspecified; Z87.19 Personal history of other diseases of the digestive system; Z98.51 Tubal ligation status; Z87.891 Personal history of nicotine dependence; Z53.29 Procedure and treatment not carried out because of patient's decision for other reasons; Z79.899 Other long term (current) drug therapy; Z88.5 Allergy status to narcotic agent
CPT/HCPCS: 36415; 80053; 81003; 82150; 83690; 85025; 96360; 99284

== ENCOUNTER 2020-08-26 21:59 | Inpatient (IN) | payer MEDICAID ==
[2020-08-26] MEDS ORDERED: SODIUM CHLORIDE 0.9% 1,000 ML IV STA (22:08)
[2020-08-26] MEDS ORDERED: ONDANSETRON 4 MG/2 ML VIAL IVP STA (22:18)
[2020-08-26 22:27] LABS: Basophils # (A) 0.1 k/uL (0-0.2); Basophils % (A) 1 %; Eosinophils # (A) 0.1 k/uL (0-0.7); Eosinophils % (A) 2 %; HCT 43.5 % (34.0-46.0); HGB 14.4 gm/dL (11.4-16.0); Lymphocytes # (A) 3.8 k/uL (1.0-4.8); Lymphocytes % (A) 43 %; MCH 30.2 pg (25.0-35.0); MCHC 33.1 g/dL (31.0-37.0); MCV 91.1 fL (80.0-100.0); Mean Platelet Volume 8.9; Monocytes # (A) 0.4 k/uL (0-1.0); Monocytes % (A) 5 %; Neutrophils # (A) 4.2 k/uL (1.3-7.7); Neutrophils % (A) 48 %; Platelet Count 263 k/uL (150-450); RBC 4.78 m/uL (3.80-5.40); RDW 13.1 % (11.5-15.5); WBC 8.7 k/uL (3.8-10.6)
--- NOTE | 2020-08-26 22:30 | ED ---
Abdominal Pain HPI - General Chief Complaint: Abdominal Pain Stated Complaint: Abd Pain Time Seen by Provider: 08/26/20 22:07 Source: patient Mode of arrival: ambulatory Limitations: no limitations - History of Present Illness Initial Comments: 55yo female presenting for cc of epigastric abdominal pain x 3 days. Patient states that she has been having epigastric dull pain since Wednesday. She states she has associated nausea. States she is unable to keep anything down due to vomiting. She states that she has yellow stool. Patient states she has a h istory of pancreatitis the past. She states that this feels similar however she feels it more in her back. She denies any chest pain shortness of breath melena hematochezia. Patient denies additional complaints. Recently scheduled a HIDA scan to evaluate her gallbladder. Denies ETOH abuse, unsure of why she has on and off pancreatitis. - Related Data Home Medications Medication Instructions Recorded Confirmed FLUoxetine HCL [PROzac] 20 mg PO HS 08/27/20 08/27/20 Allergies Allergy/AdvReac Type Severity Reaction Status Date / Time codeine AdvReac Severe Nausea & Verified 08/26/20 23:02 Vomiting Review of Systems ROS Statement: Those systems with pertinent positive or pertinent negative responses have been documented in the HPI. ROS Other: All systems not noted in ROS Statement are negative. Past Medical History Past Medical History: GERD/Reflux, Osteoarthritis (OA) Additional Past Medical History / Comment(s): Pancreatitis-chronic, migraines, occasional heart palpitations, bilateral leg varicose veins. hx inflammation disc in back. History of Any Multi-Drug Resistant Organisms: None Reported Past Surgical History: Section, Hernia Repair, Tubal Ligation Additional Past Surgical History / Comment(s): HYSTEROSCOPY/D&C-January 2016, 06/2019; EGD, COLONOSCOPY, HIATAL HERNIA REPAIR X2. Past Anesthesia/Blood Transfusion Reactions: Motion Sickness, Postoperative Naus ea & Vomiting (PONV) Additional Past Anesthesia/Blood Transfusion Reaction / Comment(s): SEVERE VOMITING POST OP- states was medicated with IV and scopolamine that helped Past Psychological History: Depression Smoking Status: Current every day smoker Past Alcohol Use History: None Reported Past Drug Use History: Marijuana - Past Family History Father Family Medical History: Cancer Additional Family Medical History / Comment(s): LUNG CA. Brother(s) Family Medical History: CVA/TIA, Myocardial Infarction ([place]) Additional Family Medical History / Comment(s): Pt has 2 brothers with CVAs and one brother with a [place]. Mother Family Medical History: No Reported History Additional Family Medical History / Comment(s): Mother is healthy and in her 80s. Son(s) Family Medical History: Blood Disorder Additional Family Medical History / Comment(s): [employer]. General Exam - General Exam Comments Initial Comments: General: The patient is awake and alert, in no distress Eye: +3 mm pupils are equal, round and reactive to light, extra-ocular movements are intact. No nystagmus. There is normal conjunctiva bilaterally. No signs of icterus. Ears, nose, mouth and throat: There are moist mucous membranes and no oral lesions. Neck: The neck is supple, there is no tenderness or JVD. Cardiovascular: There is a regular rate and rhythm. No murmur, rub or gallop is appreciated. Respiratory: Lungs are clear to auscultation, respirations are non-labored, breath sounds are equal. No wheezes, stridor, rales, or rhonchi. Gastrointestinal: Soft, non-distended, epigastric tenderness to palpation of th e abdomen, abdomen without masses or organomegaly noted. There is no rebound or guarding present. Musculoskeletal: Normal ROM, no tenderness. Strength 5/5. Sensation intact. Radial pulses equal bilaterally 2+. Neurological: A&O x 3. CN II-XII intact grossly, There are no obvious motor or sensory deficits. Coordination appears grossly intact. Speech is normal. Skin: Skin is warm and dry and no rashes or lesions are noted. Psychiatric: Cooperative, appropriate mood & affect, normal judgment. Limitations: no limitations Course Vital Signs 08/26/20 08/26/20 22:04 23:03 Temperature 98.2 F 98.4 F Pulse Rate 74 72 Respiratory 18 16 Rate Blood Pressure 121/73 132/60 O2 Sat by Pulse 97 98 Oximetry Medical Decision Making - Medical Decision Making Lipase elevated, consistent with acute on chronic pancreatitis. Patient appears stable. ordered NPO. Fluids increased. Patient has PRN pain medications as tolerated as well as antiemetics. Patient is agreeable to admission> Dr Tucker agreeable to care plan - Lab Data Result diagrams: 08/26/20 22:19 08/27/20 08:10 Lab Results 08/26/20 08/26/20 08/26/20 Range/Units 22:19 22:19 22:19 WBC 8.7 (3.8-10.6) k/uL RBC 4.78 (3.80-5.40) m/uL Hgb 14.4 (11.4-16.0) gm/dL Hct 43.5 (34.0-46.0) % MCV 91.1 (80.0-100.0) fL MCH 30.2 (25.0-35.0) pg MCHC 33.1 (31.0-37.0) g/dL RDW 13.1 (11.5-15.5) % Plt Count 263 (150-450) k/uL Neutrophils % 48 % Lymphocytes % 43 % Monocytes % 5 % Eosinophils % 2 % Basophils % 1 % Neutrophils # 4.2 (1.3-7.7) k/uL Lymphocytes # 3.8 (1.0-4.8) k/uL Monocytes # 0.4 (0-1.0) k/uL Eosinophils # 0.1 (0-0.7) k/uL Basophils # 0.1 (0-0.2) k/uL Sodium 139 (137-145) mmol/L Potassium 4.1 (3.5-5.1) mmol/L Chloride 107 (98-107) mmol/L Carbon Dioxide 23 (22-30) mmol/L Anion Gap 9 mmol/L BUN 18 H (7-17) mg/dL Creatinine 0.79 (0.52-1.04) mg/dL Est GFR (CKD-EPI)AfAm >90 (>60 ml/min/1.73 sqM) Est GFR (CKD-EPI)NonAf 85 (>60 ml/min/1.73 sqM) Glucose 112 H (74-99) mg/dL Calcium 9.6 (8.4-10.2) mg/dL Total Bilirubin 0.3 (0.2-1.3) mg/dL AST 33 (14-36) U/L ALT 36 H (4-34) U/L Alkaline Phosphatase 113 (38-126) U/L Total Protein 7.4 (6.3-8.2) g/dL Albumin 4.3 (3.5-5.0) g/dL Triglycerides (<150) mg/dL Cholesterol (<200) mg/dL LDL Cholesterol, Calc (0-99) mg/dL HDL Cholesterol (40-60) mg/dL Amylase 152 H (30-110) U/L Lipase 1190 H (23-300) U/L Urine Color Yellow Urine Appearance Clear (Clear) Urine pH 5.5 (5.0-8.0) Ur Specific [place] 1.018 (1.001-1.035) Urine Protein Negative (Negative) Urine Glucose (UA) Negative (Negative) Urine Ketones Negative (Negative) Urine Blood Negative (Negative) Urine Nitrite Negative (Negative) Urine Bilirubin Negative (Negative) Urine Urobilinogen <2.0 (<2.0) mg/dL Ur Leukocyte Esterase Negative (Negative) 08/26/20 08/27/20 Range/Units 22:50 08:10 WBC (3.8-10.6) k/uL RBC (3.80-5.40) m/uL Hgb (11.4-16.0) gm/dL Hct (34.0-46.0) % MCV (80.0-100.0) fL MCH (25.0-35.0) pg MCHC (31.0-37.0) g/dL RDW (11.5-15.5) % Plt Count (150-450) k/uL Neutrophils % % Lymphocytes % % Monocytes % % Eosinophils % % Basophils % % Neutrophils # (1.3-7.7) k/uL Lymphocytes # (1.0-4.8) k/uL Monocytes # (0-1.0) k/uL Eosinophils # (0-0.7) k/uL Basophils # (0-0.2) k/uL Sodium 138 (137-145) mmol/L Potassium 4.2 (3.5-5.1) mmol/L Chloride 110 H (98-107) mmol/L Carbon Dioxide 23 (22-30) mmol/L Anion Gap 5 mmol/L BUN 12 (7-17) mg/dL Creatinine 0.61 (0.52-1.04) mg/dL Est GFR (CKD-EPI)AfAm >90 (>60 ml/min/1.73 sqM) Est GFR (CKD-EPI)NonAf >90 (>60 ml/min/1.73 sqM) Glucose 89 (74-99) mg/dL Calcium 8.8 (8.4-10.2) mg/dL Total Bilirubin 0.5 (0.2-1.3) mg/dL AST 30 (14-36) U/L ALT 33 (4-34) U/L Alkaline Phosphatase 91 (38-126) U/L Total Protein 6.6 (6.3-8.2) g/dL Albumin 3.8 (3.5-5.0) g/dL Triglycerides 220 H (<150) mg/dL Cholesterol 230 H (<200) mg/dL LDL Cholesterol, Calc 135 H (0-99) mg/dL HDL Cholesterol 51 (40-60) mg/dL Amylase 75 (30-110) U/L Lipase 276 (23-300) U/L Urine Color Urine Appearance (Clear) Urine pH (5.0-8.0) Ur Specific [place] (1.001-1.035) Urine Protein (Negative) Urine Glucose (UA) (Negative) Urine Ketones (Negative) Urine Blood (Negative) Urine Nitrite (Negative) Urine Bilirubin (Negative) Urine Urobilinogen (<2.0) mg/dL Ur Leukocyte Esterase (Negative) Disposition Clinical Impression: Pancreatitis, Epigastric pain Disposition: ADMITTED IP TO THIS [facility] Condition: Stable Is patient prescribed a controlled substance at d/c from ED?: No Time of Disposition: 22:41 Decision to Admit Reason: Admit from EC Decision Date: 08/26/20 Decision Time: 22:42
[2020-08-26 22:39] LABS: ALT 36 U/L (4-34); AST 33 U/L (14-36); African American GFR (CKD) >90 (>60 ml/min/1.73 sqM); Albumin 4.3 g/dL (3.5-5.0); Alkaline Phosphatase 113 U/L (38-126); Amylase 152 U/L (30-110); Anion Gap 9 mmol/L; Blood Urea Nitrogen 18 mg/dL (7-17); Calcium 9.6 mg/dL (8.4-10.2); Carbon Dioxide 23 mmol/L (22-30); Chloride 107 mmol/L (98-107); Glucose 112 mg/dL (74-99); Non-African American GFR(CKD) 85 (>60 ml/min/1.73 sqM); Potassium 4.1 mmol/L (3.5-5.1); Sodium 139 mmol/L (137-145); Total Bilirubin 0.3 mg/dL (0.2-1.3); Total Protein 7.4 g/dL (6.3-8.2)
[2020-08-26] MEDS ORDERED: HYDROmorphone 0.5 MG/0.5 ML SYRINGE IVP STA (22:41)
[2020-08-26] MEDS ORDERED: SODIUM CHLORIDE 0.9% 500 ML 500 ML IV ONE (22:42)
[2020-08-26] MEDS ORDERED: NALOXONE 0.4 MG/ML 1 ML VIAL IV PRN (22:47)
[2020-08-26 22:58] LABS: Cholesterol 230 mg/dL (<200); HDL Cholesterol 51 mg/dL (40-60); LDL Cholesterol,Calculated 135 mg/dL (0-99); Triglycerides 220 mg/dL (<150)
[2020-08-26] MEDS: SODIUM CHLORIDE 0.9% 1,000 ML IV SCH (23:01)
--- NOTE | 2020-08-26 23:20 | US ---
EXAMINATION TYPE: US abdomen limited DATE OF EXAM: 08/26/2020 COMPARISON: CT, US Ultrasound June 02, 2018 CLINICAL HISTORY: epigastric pain. Epigastric pain x 4 days. Hx pancreatitis. EXAM MEASUREMENTS: Liver Length: 18.9 cm Gallbladder Wall: 0.28 cm CBD: 0.30 cm Right Kidney: 11.5 x 5.3 x 4.0 cm Pancreas: Appears to be hyperechoic. Tail slightly limited due to gas. Liver: Appears to have an increased echogenicity. Measures enlarged. Increased attenuation. Hypoecho ic area seen adjacent to the gallbladder measurin.5 x 2.8 x 1.7 cm suggestive of focal fatty spar ing? Gallbladder: Minimal internal echoes seen versus artifact. Wall measures upper limits of normal. Evidence for sonographic Howell's sign: Patient felt tenderness while scanning over the RUQ. CBD: Appears to be wnl Right Kidney: No hydronephrosis or masses seen IMPRESSION: No gallstones or dilated ducts. No evidence of pancreatic mass. There is probably some fa tty infiltration of the liver. No change compared to old exam.
[2020-08-26 23:21] LABS: Appearance,Urine Clear (Clear); Bilirubin,Urine Negative (Negative); Blood,Urine Negative (Negative); Color,Urine Yellow; Glucose,Urine (UA) Negative (Negative); Ketones,Urine Negative (Negative); Leukocyte Esterase,Urine Negative (Negative); Nitrite,Urine Negative (Negative); PH, Urine 5.5 (5.0-8.0); Protein,Urine Negative (Negative); Specific Gravity,Urine 1.018 (1.001-1.035); Urobilinogen,Urine <2.0 mg/dL (<2.0)
[2020-08-27] MEDS: HYDROmorphone 0.5 MG/0.5 ML SYRINGE IVP PRN ×2 (03:49→08:03)
[2020-08-27] MEDS: SODIUM CHLORIDE 0.9% 1,000 ML IV SCH ×2 (06:32→18:31)
[2020-08-27 08:44] LABS: ALT 33 U/L (4-34); AST 30 U/L (14-36); African American GFR (CKD) >90 (>60 ml/min/1.73 sqM); Albumin 3.8 g/dL (3.5-5.0); Alkaline Phosphatase 91 U/L (38-126); Amylase 75 U/L (30-110); Anion Gap 5 mmol/L; Blood Urea Nitrogen 12 mg/dL (7-17); Calcium 8.8 mg/dL (8.4-10.2); Carbon Dioxide 23 mmol/L (22-30); Chloride 110 mmol/L (98-107); Glucose 89 mg/dL (74-99); Non-African American GFR(CKD) >90 (>60 ml/min/1.73 sqM); Potassium 4.2 mmol/L (3.5-5.1); Sodium 138 mmol/L (137-145); Total Bilirubin 0.5 mg/dL (0.2-1.3); Total Protein 6.6 g/dL (6.3-8.2)
[2020-08-27] MEDS ORDERED: IOPAMIDOL CONTRAST (ORAL USE) VIAL PO PRN (09:56)
[2020-08-27] MEDS: ONDANSETRON 4 MG/2 ML VIAL IVP PRN ×2 (10:24→14:28)
--- NOTE | 2020-08-27 12:25 | P.HPIM ---
History of Present Illness 55yo female presenting for cc of epigastric abdominal pain x 3 days. Patient states that she has been having epigastric dull pain since Wednesday. She states she has associated nausea. States she is unable to keep anything down due to vomiting. She states that she has yellow stool. Patient states she has a history of pancreatitis the past. She states that this feels similar however she feels it more in her back. She denies any chest pain shortness of breath melena hematochezia. Patient denies additional complaints. Recently scheduled a HIDA scan to evaluate her gallbladder. Denies ETOH abuse, unsure of why she has on and off pancreatitis. Patient's pain is nonradiating. No associated fever chills. Patient has mildly elevated lipase of 1100 along with mildly elevated amylase and normal ultrasound of the abdomen computed tomography scan was ordered by general surgery patient does have history of hiatal hernia usually follows up with the general surgery there was a plan to get a HIDA scan as an outpatient by general surgery. Patient denied any alcohol abuse but does use marijuana occasionally and used to smoke in the past Review of Systems REVIEW OF SYSTEMS: CONSTITUTIONAL: No fever, no malaise, no fatigue. HEENT: No recent visual problems or hearing problems. Denied any sore throat. CARDIOVASCULAR: No chest pain, orthopnea, PND, no palpitations, no syncope. PULMONARY: No shortness of breath, no cough, no hemoptysis. GASTROINTESTINAL: As mentioned in HPI NEUROLOGICAL: No headaches, no weakness, no numbness. HEMATOLOGICAL: Denies any bleeding or petechiae. GENITOURINARY: Denies any burning micturition, frequency, or urgency. MUSCULOSKELETAL/RHEUMATOLOGICAL: Denies any joint pain, swelling, or any muscle pain. ENDOCRINE: Denies any polyuria or polydipsia. The rest of the 14-point review of systems is negative. Past Medical History Past Medical History: GERD/Reflux, Osteoarthritis (OA) Additional Past Medical History / Comment(s): Pancreatitis-chronic, migraines, occasional heart palpitations, bilateral leg varicose veins. hx inflammation disc in back. History of Any Multi-Drug Resistant Organisms: None Reported Past Surgical History: Section, Hernia Repair, Tubal Ligation Additional Past Surgical History / Comment(s): HYSTEROSCOPY/D&C-January 2016, 06/2019; EGD, COLONOSCOPY, HIATAL HERNIA REPAIR X2. Past Anesthesia/Blood Transfusion Reactions: Motion Sickness, Postoperative Nausea & Vomiting (PONV) Additional Past Anesthesia/Blood Transfusion Reaction / Comment(s): SEVERE VOMITING POST OP- states was medicated with IV and scopolamine that helped Past Psychological History: Depression Smoking Status: Former smoker Past Alcohol Use History: None Reported Additional Past Alcohol Use History / Comment(s): stopped smoking in 2009 Past Drug Use History: Marijuana Additional Drug Use History / Comment(s): OCCASIONAL USE - Past Family History Father Family Medical History: Cancer Additional Family Medical History / Comment(s): LUNG CA. Brother(s) Family Medical History: CVA/TIA, Myocardial Infarction ([place]) Additional Family Medical History / Comment(s): Pt has 2 brothers with CVAs and one brother with a [place]. Mother Family Medical History: No Reported History Additional Family Medical History / Comment(s): Mother is healthy and in her 80s. Son(s) Family Medical History: Blood Disorder Additional Family Medical History / Comment(s): [employer]. Medications and Allergies Home Medications Medication Instructions Recorded Confirmed Type FLUoxetine HCL [PROzac] 20 mg PO HS 08/27/20 08/27/20 History Allergies Allergy/AdvReac Type Severity Reaction Status Date / Time codeine AdvReac Severe Nausea & Verified 08/26/20 23:02 Vomiting Physical Exam Vitals: Vital Signs Temp Pulse Pulse Resp BP BP Pulse Ox 08/27/20 07:55 97.9 F 56 L 16 116/63 95 08/27/20 03:00 97.8 F 62 16 136/70 100 08/26/20 23:32 98.0 F 86 18 147/84 99 08/26/20 23:03 98.4 F 72 16 132/60 98 08/26/20 22:04 98.2 F 74 18 121/73 97 Intake and Output 08/26/20 08/27/20 08/27/20 22:59 06:59 14:59 Other: Voiding Method Toilet # Voids 1 1 Weight 82.554 kg 82.554 kg PHYSICAL EXAMINATION: GENERAL: The patient is alert and oriented x3, not in any acute distress. Well developed, well nourished. HEENT: Pupils are round and equally reacting to light. EOMI. No scleral icterus. No conjunctival pallor. Normocephalic, atraumatic. No pharyngeal erythema. No thyromegaly. CARDIOVASCULAR: S1 and S2 present. No murmurs, rubs, or gallops. PULMONARY: Chest is clear to auscultation, no wheezing or crackles. ABDOMEN: Soft, mild tenderness in the epigastric area without any rebound or rigidity, nondistended, normoactive bowel sounds. No palpable organomegaly. MUSCULOSKELETAL: No joint swelling or deformity. EXTREMITIES: No cyanosis, clubbing, or pedal edema. NEUROLOGICAL: Gross neurological examination did not reveal any focal deficits. SKIN: No rashes. Results CBC & Chem 7: 08/26/20 22:19 08/27/20 08:10 Labs: Abnormal Lab Results - Last 24 Hours (Table) 08/26/20 08/26/20 08/27/20 Range/Units 22:19 22:50 08:10 Chloride 110 H (98-107) mmol/L BUN 18 H (7-17) mg/dL Glucose 112 H (74-99) mg/dL ALT 36 H (4-34) U/L Triglycerides 220 H (<150) mg/dL Cholesterol 230 H (<200) mg/dL LDL Cholesterol, Calc 135 H (0-99) mg/dL Amylase 152 H (30-110) U/L Lipase 1190 H (23-300) U/L Thrombosis Risk Factor Assmnt - Choose All That Apply Any of the Below Risk Factors Present?: Yes Each Factor Represents 1 point: Age 41-60 years Thrombosis Risk Factor Assessment Total Risk Factor Score: 1 Thrombosis Risk Factor Assessment Level: Low Risk Assessment and Plan Plan: -Epigastric abdominal pain:: Can be acute pancreatitis patient can you done IV fluids patient is still nauseous patient will remain nothing by mouth gastroenterology will evaluate the patient. Patient has history of hiatal hernia gastroesophageal reflux disease from this hiatal hernia can be the reason for her abdominal pain. Patient will be continued on Protonix general surgery was consulted. -Depression continue with the SSRI whenever she can tolerate the diet - history of pancreatitis in the past -DVT prophylaxis early ambulation
--- NOTE | 2020-08-27 13:42 | CT ---
EXAMINATION TYPE: CT abdomen w con DATE OF EXAM: 08/27/2020 COMPARISON: Ultrasound 08/26/2020, CT 05/16/2018 HISTORY: ELEVATED PANCREATIC ENZYMES, VOMITING CT DLP: 836.5 mGycm Automated exposure control for dose reduction was used. TECHNIQUE: Helical acquisition of images was performed from the lung bases through the top of iliac crest to include entire abdomen. CONTRAST: Performed with Oral Contrast and with IV Contrast, patient injected with 100 mL of Isovue 300. FINDINGS: Patient shows surgical change at the gastroesophageal junction, there may be a small hiatal hernia or distal esophageal thickening which is indeterminate LUNG BASES: No significant abnormality is appreciated. LIVER/GB: Liver shows low attenuation consistent with hepatic steatosis, gallbladder is normal, liver at the upper abdomen of normal for size. PANCREAS: No significant abnormality is seen. SPLEEN: No significant abnormality is seen. ADRENALS: No significant abnormality is seen. KIDNEYS: No significant abnormality is seen. BOWEL: No significant abnormality is seen. LYMPH NODES: No significant abnormality is appreciated. OSSEOUS STRUCTURES: Degenerative disc changes are noted in the visualized spine.. FREE AIR: No Free Air visible ASCITES: None visible. RETROPERITONEAL ADENOPATHY: No Retroperitoneal Adenopathy visible. OTHER: IMPRESSION: CORRELATE FOR HEPATIC STEATOSIS. POSTOP CHANGES.
--- NOTE | 2020-08-27 14:06 | P.GSCN ---
<Kathleen Meredith - Last Filed: 08/27/20 14:17> History of Present Illness Consult date: 08/27/20 History of present illness: CHIEF COMPLAINT: Abdominal pain HISTORY OF PRESENT ILLNESS: This is a 55-year-old female with a known history of pancreatitis, hiatal hernia with repair 2, infectious colitis and a hysterectomy about 8 months ago. Patient reports she's probably had about 5 episodes of pancreatitis. She believes her last one was about 3 months ago in which she took care of at home on her own. Patient presents to the emergency room with complaints of epigastric pain for about 3 days. She also has been having nausea and vomiting and unable to keep any food down. She has been com plaining of heartburn and indigestion type symptoms. She reports that the pain radiated from the epigastric area to her back also she felt pain in the right upper quadrant and into the shoulder area. Abdominal ultrasound shows no gallstones or dilated ducts. No evidence of pancreatic mass. There is probably some fatty infiltration of the liver. He was found to have elevated amylase and lipase and was diagnosed with an acute pancreatitis. She was started on IV fluids and made nothing by mouth. GI service is through to evaluate. Patient denies alcohol use. She is unsure why she has these recurrent cases of pancreatitis. Patient was following up with Dr. Hidalgo next week for colonoscopy. She reports that she has history of hemorrhoids and occasionally does have some blood on the tissue paper when she wipes. Patient denies any fever, chills or sweats. She reports having a yellow stool yesterday. PAST MEDICAL HISTORY: See list. PAST SURGICAL HISTORY: See list. MEDICATIONS: See list. ALLERGIES: See list. SOCIAL HISTORY: No illicit drug use. REVIEW OF SYSTEMS: CONSTITUTIONAL: Denies fever or chills. HEENT: Denies blurred vision, vision changes, or eye pain. Denies hemoptysis ENDOCRINE: Denies heat or cold intolerance. CARDIOVASCULAR: Denies chest pain or pressure. RESPIRATORY: No shortness of breath. GASTROINTESTINAL: Denies abdominal pain. Denies nausea or vomiting. NEURO: Denies history of seizures. PSYCH: No depression or suicidal ideation HEMATOLOGIC: Denies bleeding disorders. LYMPHATIC: The patient denies any lumps and bumps around the neck. GENITOURINARY: Denies any blood in urine or increased urinary frequency. MUSCULOSKELETAL: Denies myalgias. Denies joint swelling. Denies decreased range of motion beyond patients baseline. SKIN: Denies pruitis. Denies rash. PHYSICAL EXAM: VITAL SIGNS: Reviewed GENERAL: Well-developed in no acute distress. HEENT: No sclera icterus. Extraocular movements grossly intact. Moist buccal mucosa. Head is atraumatic, normocephalic. Hears conversational speech. No nasal drainage. NECK: Supple without lymphadenopathy. CHEST: Non-labored respirations and equal bilateral excursions. CARDIOVASCULAR: Palpable 2+ radial pulses. ABDOMEN: Soft. Nondistended. Epigastric tenderness with palpation MUSCULOSKELETAL: No clubbing or cyanosis. NEUROLOGIC: No focal or lateralizing signs. Cranial nerves II through XII grossly intact. PSYCH: Appropriate affect. Alert and oriented to person, place and time. SKIN: Well perfused. Good skin turgor. LABORATORY DATA: WBC 8.7 hemoglobin 14.4 sodium 138 potassium 4.2 AST 30 ALT 33 triglycerides 220 Cholesterol 230 amylase 152 down to 75 lipase 1190 down to 276 IMAGING: Abdominal ultrasound shows no gallstones or dilated ducts. No evidence of pa ncreatic mass. There is probably some fatty infiltration of the liver. CT abdomen correlate for hepatic steatosis. Did also noted surgical changes at the gastroesophageal junction, there may be a small hiatal hernia or distal esophageal thickening which is indeterminate ASSESSMENT: 1. Epigastric Abdominal pain patient will have further workup completed with upper endoscopy 2. Acute pancreatitis 3. History of hiatal hernia with prior repair 4. History of chronic pancreatitis PLAN: -Schedule EGD tomorrow 08/28/[address] Hidalgo -Nothing by mouth after midnight -Continue IV fluids -Continue Protonix -Continue Zofran as needed Physician Blanket Inspector note has been reviewed by physician. Signing provider agrees with the documented findings, assessment, and plan of care. Past Medical History Past Medical History: GERD/Reflux, Osteoarthritis (OA) Additional Past Medical History / Comment(s): Pancreatitis-chronic, migraines, occasional heart palpitations, bilateral leg varicose veins. hx inflammation disc in back. History of Any Multi-Drug Resistant Organisms: None Reported Past Surgical History: Section, Hernia Repair, Tubal Ligation Additional Past Surgical History / Comment(s): HYSTEROSCOPY/D&C-January 2016, 06/2019; EGD, COLONOSCOPY, HIATAL HERNIA REPAIR X2. Past Anesthesia/Blood Transfusion Reactions: Motion Sickness, Postoperative Nausea & Vomiting (PONV) Additional Past Anesthesia/Blood Transfusion Reaction / Comm: SEVERE VOMITING POST OP- states was medicated with IV and scopolamine that helped Past Psychological History: Depression Smoking Status: Former smoker Past Alcohol Use History: None Reported Additional Past Alcohol Use History / Comment(s): stopped smoking in 2009 Past Drug Use History: Marijuana Additional Drug Use History / Comment(s): OCCASIONAL USE - Past Family History Father Family Medical History: Cancer Additional Family Medical History / Comment(s): LUNG CA. Brother(s) Family Medical History: CVA/TIA, Myocardial Infarction ([place]) Additional Family Medical History / Comment(s): Pt has 2 brothers with CVAs and one brother with a [place]. Mother Family Medical History: No Reported History Additional Family Medical History / Comment(s): Mother is healthy and in her 80s. Son(s) Family Medical History: Blood Disorder Additional Family Medical History / Comment(s): [place]. Medications and Allergies Home Medications Medication Instructions Recorded Confirmed Type FLUoxetine HCL [PROzac] 20 mg PO HS 08/27/20 08/27/20 History Allergies Allergy/AdvReac Type Severity Reaction Status Date / Time codeine AdvReac Severe Nausea & Verified 08/26/20 23:02 Vomiting Surgical - Exam Vital Signs Temp Pulse Resp BP Pulse Ox 98.2 F 74 18 121/73 97 08/26/20 22:04 08/26/20 22:04 08/26/20 22:04 08/26/20 22:04 08/26/20 22:04 Results - Labs 08/26/20 22:19 08/27/20 08:10 Abnormal Lab Results - Last 24 Hours (Table) 08/26/20 08/26/20 08/27/20 Range/Units 22:19 22:50 08:10 Chloride 110 H (98-107) mmol/L BUN 18 H (7-17) mg/dL Glucose 112 H (74-99) mg/dL ALT 36 H (4-34) U/L Triglycerides 220 H (<150) mg/dL Cholesterol 230 H (<200) mg/dL LDL Cholesterol, Calc 135 H (0-99) mg/dL Amylase 152 H (30-110) U/L Lipase 1190 H (23-300) U/L Diabetes panel 10/26/20 10/26/20 10/27/20 Range/Units 22:19 22:50 08:10 Sodium 139 138 (137-145) mmol/L Potassium 4.1 4.2 (3.5-5.1) mmol/L Chloride 107 110 H (98-107) mmol/L Carbon Dioxide 23 23 (22-30) mmol/L BUN 18 H 12 (7-17) mg/dL Creatinine 0.79 0.61 (0.52-1.04) mg/dL Glucose 112 H 89 (74-99) mg/dL Calcium 9.6 8.8 (8.4-10.2) mg/dL AST 33 30 (14-36) U/L ALT 36 H 33 (4-34) U/L Alkaline Phosphatase 113 91 (38-126) U/L Total Protein 7.4 6.6 (6.3-8.2) g/dL Albumin 4.3 3.8 (3.5-5.0) g/dL Triglycerides 220 H (<150) mg/dL HDL Cholesterol 51 (40-60) mg/dL Calcium panel 08/26/20 08/27/20 Range/Units 22:19 08:10 Calcium 9.6 8.8 (8.4-10.2) mg/dL Albumin 4.3 3.8 (3.5-5.0) g/dL Pituitary panel 08/26/20 08/27/20 Range/Units 22:19 08:10 Sodium 139 138 (137-145) mmol/L Potassium 4.1 4.2 (3.5-5.1) mmol/L Chloride 107 110 H (98-107) mmol/L Carbon Dioxide 23 23 (22-30) mmol/L BUN 18 H 12 (7-17) mg/dL Creatinine 0.79 0.61 (0.52-1.04) mg/dL Glucose 112 H 89 (74-99) mg/dL Calcium 9.6 8.8 (8.4-10.2) mg/dL Adrenal panel 08/26/20 08/27/20 Range/Units 22:19 08:10 Sodium 139 138 (137-145) mmol/L Potassium 4.1 4.2 (3.5-5.1) mmol/L Chloride 107 110 H (98-107) mmol/L Carbon Dioxide 23 23 (22-30) mmol/L BUN 18 H 12 (7-17) mg/dL Creatinine 0.79 0.61 (0.52-1.04) mg/dL Glucose 112 H 89 (74-99) mg/dL Calcium 9.6 8.8 (8.4-10.2) mg/dL Total Bilirubin 0.3 0.5 (0.2-1.3) mg/dL AST 33 30 (14-36) U/L ALT 36 H 33 (4-34) U/L Alkaline Phosphatase 113 91 (38-126) U/L Total Protein 7.4 6.6 (6.3-8.2) g/dL Albumin 4.3 3.8 (3.5-5.0) g/dL <Ana Luisa Hidalgo - Last Filed: 08/28/20 06:33> History of Present Illness History of present illness: As above. Patient seen and evaluated. HISTORY OF PRESENT ILLNESS: The patient is a 55 year old female recently seen a week ago in the clinic for recurrent abdominal pain of the right upper quadrant and epigastrium. She presented to the ER with moderate to severe epigastric and right upper quadrant abdominal pain. She reports being in a doctor's office where her abdominal pain occurred after her exam. She reports pre-existing history of Yury repair x 2 with subsequent complications. She is admitted for elevated lipase for pancreatitis. She reports intractable nausea and vomiting at the time of evaluation. PAST MEDICAL HISTORY: See list and reviewed PAST SURGICAL HISTORY: See list and reviewed MEDICATIONS: See list and reviewed ALLERGIES: See list and reviewed SOCIAL HISTORY: See list and reviewed FAMILY HISTORY: See list and reviewed REVIEW OF ORGAN SYSTEMS: CONSTITUTIONAL: No fevers or chills. Has weight gain. EYES: Denies any trouble with vision. No glasses. HEENT: No difficulties with hearing. No nosebleeds. No difficulty swallowing. RESPIRATORY: Denies pneumonia. Denies any troubles with breathing or dyspnea on exertion. CARDIOVASCULAR: Denies any chest pain, palpitations, or recent heart attacks. GASTROINTESTINAL: Has fatty food intolerance. Has change in bowel habits and gas bloat. Has blood in stools. GENITOURINARY: Denies any blood in urine or increased urinary frequency. NEUROLOGICAL: Denies any numbness or tingling along the distal extremities. Has headaches. MUSCULOSKELETAL: Has back pain, stiffness or joint arthritis. SKIN: No current skin cancer. No rash. PSYCHIATRIC: Has depression. No suicidal thoughts. ENDOCRINE: Denies current thyroid disorders. Denies any blood sugar glucose intolerance. HEME/LYMPHATIC: Denies any lumps and bumps around the neck. No recent deep venous thrombosis. ALLERGY/IMMUNOLOGY: No immunoglobulin therapy. No immune deficiencies. BREAST: Denies current breast lumps, pain or nipple discharge. PHYSICAL EXAM: VITALS: Reviewed CONSTITUTIONAL: Well developed and in mild distress with intractable vomiting EYES: Conjuctivae without sclera icterus. Pupils are equally round and reactive to light. Extraocular movements grossly intact. HEAD, EARS, NOSE, THROAT: Moist buccal mucosa. Head is atraumatic, normoce phalic. Hears conversational speech. No nasal drainage. NECK: Supple. No JV distention. No thyroidomegaly. RESPIRATORY: Non-labored respirations and equal bilateral excursions. No gross wheezes. CARDIOVASCULAR: Palpable 2+ radial pulses. ABDOMEN: Soft. Non-tender. Nondistended. MUSCULOSKELETAL: No clubbing or cyanosis. SKIN: Warm and well perfused with good skin turgor. NEUROLOGIC: Cranial nerves II through XII grossly intact. No focal or lateralizing signs. PSYCH: Appropriate affect. Alert and oriented to person, place and time. Displays appropriate insight. CLINCAL LABS: Reviewed. Lipase elevated 1190. WBC normal 8.7. Hgb 14.4 normal IMAGING: Independently reviewed ultrasound of the gallbladder demonstrating no large gallstones. CT of the abdomen and pelvis reviewed demonstrating hepatomegaly. No inflammatory changes along the pancreas. RADIOLOGY: Report reviewed CT of the abdomen and pelvis demonstrating small recurrent hiatal hernia. Ultrasound report of the abdomen demonstrates no lesions along the pancreas with CBD within normal limits. ASSESSMENT: 1. Acute pancreatitis with elevated lipase 2. Epigastric abdominal pain 3. Right upper quadrant abdominal pain 4. History of hiatal hernia repair 2 PLAN: 1. Recommend IV fluid hydration 2. Nothing by mouth status at this time 3. May benefit from upper endoscopy 4. Clinical cholecystitis cannot be excluded at this time Thank you for this kind consultation. Surgical - Exam Vital Signs Temp Pulse Resp BP Pulse Ox 98.2 F 74 18 121/73 97 08/26/20 22:04 08/26/20 22:04 08/26/20 22:04 08/26/20 22:04 08/26/20 22:04 Results - Labs 08/26/20 22:19 08/27/20 08:10 Abnormal Lab Results - Last 24 Hours (Table) 08/27/20 Range/Units 08:10 Chloride 110 H (98-107) mmol/L Diabetes panel 08/27/20 Range/Units 08:10 Sodium 138 (137-145) mmol/L Potassium 4.2 (3.5-5.1) mmol/L Chloride 110 H (98-107) mmol/L Carbon Dioxide 23 (22-30) mmol/L BUN 12 (7-17) mg/dL Creatinine 0.61 (0.52-1.04) mg/dL Glucose 89 (74-99) mg/dL Calcium 8.8 (8.4-10.2) mg/dL AST 30 (14-36) U/L ALT 33 (4-34) U/L Alkaline Phosphatase 91 (38-126) U/L Total Protein 6.6 (6.3-8.2) g/dL Albumin 3.8 (3.5-5.0) g/dL Calcium panel 08/27/20 Range/Units 08:10 Calcium 8.8 (8.4-10.2) mg/dL Albumin 3.8 (3.5-5.0) g/dL Pituitary panel 08/27/20 Range/Units 08:10 Sodium 138 (137-145) mmol/L Potassium 4.2 (3.5-5.1) mmol/L Chloride 110 H (98-107) mmol/L Carbon Dioxide 23 (22-30) mmol/L BUN 12 (7-17) mg/dL Creatinine 0.61 (0.52-1.04) mg/dL Glucose 89 (74-99) mg/dL Calcium 8.8 (8.4-10.2) mg/dL Adrenal panel 08/27/20 Range/Units 08:10 Sodium 138 (137-145) mmol/L Potassium 4.2 (3.5-5.1) mmol/L Chloride 110 H (98-107) mmol/L Carbon Dioxide 23 (22-30) mmol/L BUN 12 (7-17) mg/dL Creatinine 0.61 (0.52-1.04) mg/dL Glucose 89 (74-99) mg/dL Calcium 8.8 (8.4-10.2) mg/dL Total Bilirubin 0.5 (0.2-1.3) mg/dL AST 30 (14-36) U/L ALT 33 (4-34) U/L Alkaline Phosphatase 91 (38-126) U/L Total Protein 6.6 (6.3-8.2) g/dL Albumin 3.8 (3.5-5.0) g/dL
--- NOTE | 2020-08-27 16:47 | CONS ---
CONSULTATION DATE OF DICTATION: 08/27/2020 REASON FOR CONSULTATION: Acute recurrent pancreatitis. HISTORY OF PRESENT ILLNESS: The patient is a 55-year-old pleasant white female admitted to the hospital with acute onset of epigastric pain associated with nausea, vomiting, and diarrhea for the last 3 days' duration. The pain continued to progressively get worse and she had several episodes of emesis. Came in to the emergency room, was noted to have elevated lipase consistent with acute pancreatitis. Patient had several episodes of acute pancreatitis in the last 4 years. She recalls having at least 5 or 6 episodes. She was seen by Dr. Diaz in the past and she was referred to [facility] for endoscopic ultrasound of the pancreas that was done in 2017 and no records available at the time of this dictation, but according to the patient, she was told that she has idiopathic pancreatitis. Today, she still has nausea. Abdominal pain is improving. Diarrhea has resolved. Had 3 episodes of emesis. She was investigated. She did have a CT of the abdomen and pelvis done in the emergency room that showed hepatic steatosis, normal gallbladder with no gallstones. She has no history of alcohol abuse. MEDICATIONS: At home include Prozac. ALLERGIES: CODEINE. PAST SURGICAL HISTORY: , hiatal hernia repair by Dr. Schmidt, tubal ligation, hysteroscopy, D and C. SOCIAL HISTORY: Chronic smoker, no alcohol use. FAMILY HISTORY: Father lung cancer. Mother is healthy in the 80s, but brother has CVA and AK. PAST MEDICAL HISTORY: Gastroesophageal reflux disease, degenerative joint disease, acute recurrent pancreatitis. REVIEW OF SYSTEMS: CARDIOPULMONARY: No chest pain, no shortness of breath. GENITOURINARY: No dysuria or hematuria. MUSCULOSKELETAL: Unremarkable. SKIN: Unremarkable. ENDOCRINE: Unremarkable. PSYCHIATRIC: Unremarkable. NEUROLOGY: Unremarkable. ENT/VISION: Unremarkable. CONSTITUTIONAL: No recent weight loss. No fever, chills, night sweats. HEMATOLOGY: Unremarkable. PHYSICAL EXAMINATION: She appears comfortable, in no apparent distress. Vital signs are stable. Blood pressure is 133/70, pulse is 62, temperature is 97.8. HEENT: Examination unremarkable, conjunctivae are pink, sclerae nonicteric, oral cavity no lesions. NECK: No JVD or lymph node enlargement. CHEST: Clear to auscultation. HEART: Regular rate and rhythm. ABDOMEN: Soft, bowel sounds are positive. Mild tenderness in the epigastric area, right upper quadrant area. Rest of the abdomen was benign. EXTREMITIES: No pedal edema. SKIN: No rashes. NEUROLOGIC: Alert and oriented x3. No focal deficits. LABS: WBC 8.7, hemoglobin 14.4, platelets normal. Basic metabolic panel is within normal limits. AST and ALT are 33 and 36 respectively. T-bilirubin and alkaline phosphatase are normal. Fasting triglycerides at 2 am 20. Lipase was 191 today it is down to 276. Amylase 152 yesterday and today 75. CT of the abdomen and pelvis done yesterday showed normal-appearing pancreas and evidence of hepatic steatosis. She also had ultrasound of the abdomen that showed no gallstones and no biliary ductal dilation. Some fatty infiltration of the liver. IMPRESSION: 1. Acute recurrent pancreatitis for the last 4 years duration. The patient had at least 6 episodes so far. She was investigated at [facility] and had endoscopic ultrasound of the pancreas in 2017, results of which are not available at the time of this dictation. The patient was told she has idiopathic pancreatitis she presented to the hospital with nausea, vomiting and epigastric pain of 3 days duration and noted to have elevated lipase consistent with acute pancreatitis. She still has persistent symptoms, but the lipase has normalized today. 2. History of gastroesophageal reflux disease, status post hiatal hernia repair by Dr. Schmidt 2 years ago. RECOMMENDATIONS: 1. Start on clear liquid diet. 2. Continue Protonix IV Protonix. 3. Antiemetics as needed. 4. Repeat labs in the morning. 5. If her symptoms improve, she can be discharged home tomorrow with outpatient followup in 2-3 weeks. 6. Thank you for this consultation. MMODL / IJN: [id number] /
[2020-08-27] MEDS ORDERED: METOCLOPRAMIDE 5 MG/ML 2 ML VIAL ONE (18:22)
[2020-08-27] MEDS ORDERED: FLUoxetine HCL 10 MG CAP PO SCH (21:00)
[2020-08-27] MEDS ORDERED: SODIUM CHLORIDE 0.9% 2,000 ML IV ONE (21:26)
[2020-08-27] MEDS ORDERED: DEXAMETHASONE SOD PHOSPHATE 10 MG/ML 1 ML VIAL IV PRN (21:26)
[2020-08-27] MEDS ORDERED: SCOPOLAMINE 1.5MG/72HR PATCH TRANSDERM STA (21:28)
[2020-08-28] MEDS: ONDANSETRON 4 MG/2 ML VIAL IVP SCH ×5 (00:28→23:45)
[2020-08-28] MEDS: SODIUM CHLORIDE 0.9% 1,000 ML IV SCH ×3 (00:28→23:57)
[2020-08-28] MEDS: METOCLOPRAMIDE 5 MG/ML 2 ML VIAL IVP PRN ×2 (00:29→06:10)
[2020-08-28] MEDS: KETOROLAC 15 MG/ML 1 ML VIAL IVP PRN ×3 (00:36→23:46)
[2020-08-28 06:48] LABS: HCT 36.8 % (34.0-46.0); HGB 12.5 gm/dL (11.4-16.0); MCH 30.8 pg (25.0-35.0); MCHC 33.9 g/dL (31.0-37.0); MCV 90.8 fL (80.0-100.0); Mean Platelet Volume 8.8; Platelet Count 260 k/uL (150-450); RBC 4.05 m/uL (3.80-5.40); RDW 13.1 % (11.5-15.5); WBC 8.6 k/uL (3.8-10.6)
[2020-08-28 07:02] LABS: African American GFR (CKD) >90 (>60 ml/min/1.73 sqM); Anion Gap 6 mmol/L; Blood Urea Nitrogen 6 mg/dL (7-17); Calcium 8.7 mg/dL (8.4-10.2); Carbon Dioxide 23 mmol/L (22-30); Chloride 109 mmol/L (98-107); Glucose 95 mg/dL (74-99); Magnesium 1.7 mg/dL (1.6-2.3); Non-African American GFR(CKD) >90 (>60 ml/min/1.73 sqM); Potassium 3.8 mmol/L (3.5-5.1); Sodium 138 mmol/L (137-145)
[2020-08-28] MEDS ORDERED: IV FLUID CONTINUATION 150 ML IV ONE (08:40)
[2020-08-28] MEDS ORDERED: PROPOFOL 10 MG/ML 20 ML VIAL IV ONE (08:41)
--- NOTE | 2020-08-28 08:57 | P.PCN ---
Date of Procedure: 08/28/20 Description of Procedure: PREOPERATIVE DIAGNOSIS: Gastroesophageal reflux disease Epigastric abdominal pain Abnormal computed tomography scan hiatal hernia History of hiatal hernia repair Intractable nausea or vomiting POSTOPERATIVE DIAGNOSIS: Gastroesophageal reflux disease with erosive esophagitis Recurrent diaphragmatic hiatal hernia Gastritis, chronic Duodenitis, hearing chronic OPERATION: Esophagogastroduodenoscopy with biopsies along antrum, duodenum, distal esophagus SURGEON: Ana Luisa Hidalgo MD ANESTHESIA: MAC. INDICATIONS: The patient is a 55-year-old female who presents with a history of reflux disease, epigastric abdominal pain, intractable nausea and vomiting, Prior hiatal hernia repair . Benefits and risks of the procedure were described. Informed consent was obtained. DESCRIPTION: The patient was brought into the endoscopy suite and laid in the left lateral decubitus position. An Olympus gastroscope was passed along the posterior oropharynx down to the distal esophagus where the squamocolumnar junction was encountered at 35 cm from the incisors. The stomach was entered and no bile reflux was found. Additional findings are listed below. Biopsies with cold forceps were obtained of the antrum. The first through third portion of the duodenum was examined. Retroflexion of the scope confirmed Hill grade 3 lower esophageal valve. The squamocolumnar junction demonstrated LA grade B erosive esophagitis. The stomach was desufflated. The patient tolerated the procedure well. FINDINGS: Squamocolumnar junction 35 cm from the incisors. Diaphragmatic hiatus at 38 cm. Hiatal hernia, 3 cm Hill grade 3 lower esophageal valve. LA grade B erosive esophagitis with acute ulceration Active duodenitis. Chronic gastritis RECOMMENDATIONS: 1. Recommend omeprazole 40 mg twice daily for 2 weeks 2. May need revision of previous Yury fundoplasty
[2020-08-28] MEDS ORDERED: PANTOPRAZOLE 40 MG/10 ML VIAL IVP SCH (09:00)
[2020-08-28] MEDS: MAGNESIUM SULFATE-D5W PMX 1 GM in DEXTROSE/WATER 1 100ML.BAG IVPB SCH ×4 (09:49→14:26)
--- NOTE | 2020-08-28 11:41 | P.PN ---
Subjective Progress Note Date: 08/28/20 Principal diagnosis: pancreatitis The patient was seen and examined at the bedside. This is a 55-year-old female who was admitted to the hospital with acute onset of epigastric pain associated with nausea, vomiting and diarrhea for the last 3 days duration. The patient states she has a history of pancreatitis for which she's had 4-5 episodes in the past. She has had follow-up with Dr. Odonnell in the past as well as [facility] where she states she underwent an EUS about 3 years ago. She states that there've been no answers as to why she is getting pancreatitis. She has been also following with Dr. Hood regarding history of acid reflux and abdominal pain. She was supposed to have an outpatient workup for an upper and lower endoscopy as well as a HIDA scan. The patient actually underwent an EGD this morning with Dr. Hood he was found to have gastroesophageal reflux disease with erosive esophagitis, recurrent diaphragmatic hiatal hernia, gastritis, duodenitis. She has a prior history of a Jamir fundoplication. The patient was started on Decadron and Reglan yesterday evening. She states she is feeling much better at this time. Abdominal pain has improved as well as nausea and vomiting. She states she had 2 formed bowel movements yesterday evening. She is scheduled for a cholecystectomy tomorrow with Dr. Hood. Objective - Vital Signs Vital signs: Vital Signs Temp 98.8 F 08/28/20 09:00 Pulse 58 L 08/28/20 09:00 Resp 16 08/28/20 09:00 BP 124/63 08/28/20 09:00 Pulse Ox 98 08/28/20 09:00 Intake & Output 08/27/20 08/28/20 08/28/20 18:59 06:59 18:59 Intake Total 100 Balance 100 Intake: IV 100 Other: Voiding Method Toilet # Voids 1 1 - Exam General appearance: The patient is alert, oriented, in no acute distress. HET: Head is normocephalic and atraumatic. Conjunctiva pink. Sclera anicteric. Neck: Supple without lymphadenopathy. Abdomen: Soft, upper quadrant and epigastric tenderness, nondistended with bowel sounds. No guarding or rigidity. Extremities: Normal skin color and turgor. No pedal edema Neurological: No focal deficits. Alert and oriented 3. - Labs CBC & Chem 7: 08/28/20 06:35 08/28/20 06:35 Labs: Abnormal Lab Results - Last 24 Hours (Table) 08/28/20 Range/Units 06:35 Chloride 109 H (98-107) mmol/L BUN 6 L (7-17) mg/dL Creatinine 0.51 L (0.52-1.04) mg/dL Assessment and Plan Assessment: 1. Acute recurrent pancreatitis for the last 4 years duration. The patient had at least 6 episodes of care. She was investigated [facility] and had endoscopic ultrasound of the pancreas in 2017, results of which are not available at this time. The patient was told she had is idiopathic pancreatitis. She presented to the hospital with nausea, vomiting and epigastric pain for the last 3 days duration was noted to have an elevated lipase consistent with acute pancreatitis. Lipase has normalized, and Tums have improved. 2. Gastroesophageal reflux disease status post hiatal hernia repair by Dr. Schmidt 2 years ago. Patient underwent upper endoscopy today with Dr. Hood. Findings reported as gastroesophageal reflux disease with erosive esophagitis, recurrent diaphragmatic hiatal hernia, gastritis, duodenitis. Plan: 1. Advance diet as tolerated per recommendations from surgery 2. Continue Protonix IV 3. Continue with antiemetics as needed 4. From a gastroenterology standpoint patient may be discharged home once medically stable. Patient should follow-up with gastroenterology in 2-3 weeks. 5. Repeat labs in morning The impression and plan of care has been dictated as directed. Dr. Roxy Coats I performed a history and examination of this patient, discussed the same with the dictator. I agree with the dictator's note ,documented as a scribe. Any additional findings or plans will be noted.
--- NOTE | 2020-08-28 19:49 | P.PN ---
Subjective Progress Note Date: 08/28/20 HISTORY OF PRESENT ILLNESS: The patient is a 55 year old female who presented with history of acute pancreatitis. She reports recurrent epigastric right upper quadrant abdominal pain. Upper endoscopy completed demonstrating hiatal hernia, duodenitis, esophagitis. Nausea vomiting improved after IV fluid hydration, Decadron, Zofran, scopolamine patch. She reports her abdominal pain was exacerbated after eating fatty foods. REVIEW OF ORGAN SYSTEMS: No chest pain. No dyspnea on exertion. No fevers or chills. PHYSICAL EXAM: VITALS: Reviewed CONSTITUTIONAL: Well developed and in mild distress with intractable vomiting EYES: Conjuctivae without sclera icterus. Pupils are equally round and reactive to light. Extraocular movements grossly intact. HEAD, EARS, NOSE, THROAT: Moist buccal mucosa. Head is atraumatic, normocephalic. Hears conversational speech. No nasal drainage. NECK: Supple. No JV distention. No thyroidomegaly. RESPIRATORY: Non-labored respirations and equal bilateral excursions. No gross wheezes. CARDIOVASCULAR: Palpable 2+ radial pulses. ABDOMEN: Soft. Non-tender. Nondistended. MUSCULOSKELETAL: No clubbing or cyanosis. SKIN: Warm and well perfused with good skin turgor. NEUROLOGIC: Cranial nerves II through XII grossly intact. No focal or lateralizing signs. PSYCH: Appropriate affect. Alert and oriented to person, place and time. Displays appropriate insight. CLINCAL LABS: Reviewed. Lipase elevated 1190 down to 276. WBC normal 8.6. Hgb 12.5 normal ASSESSMENT: 1. Acute pancreatitis with elevated lipase 2. Esophagitis 3. Duodenitis 4. Gastritis 5. Recurrent hiatal hernia 6. Clinical cholecystitis PLAN: 1. Recommend cholecystectomy as clinical picture of abdominal pain, fatty food intolerance, recurrent pancreatitis, high suspiciously of cholecystitis 2. Treat for magnesium level for goal 2.0. 3. Start Protonix oral Objective - Vital Signs Vital signs: Vital Signs Temp 98.6 F 08/28/20 17:15 Pulse 66 08/28/20 17:15 Resp 18 08/28/20 17:15 BP 123/79 08/28/20 17:15 Pulse Ox 97 08/28/20 17:15 Intake & Output 08/28/20 08/28/20 08/29/20 06:59 18:59 06:59 Intake Total 100 Balance 100 Intake: IV 100 Other: Voiding Method Toilet # Voids 1 1 - Labs CBC & Chem 7: 08/28/20 06:35 08/28/20 06:35 Labs: Abnormal Lab Results - Last 24 Hours (Table) 08/28/20 Range/Units 06:35 Chloride 109 H (98-107) mmol/L BUN 6 L (7-17) mg/dL Creatinine 0.51 L (0.52-1.04) mg/dL
--- NOTE | 2020-08-29 01:56 | P.PN ---
Subjective Progress Note Date: 08/28/20 Principal diagnosis: acute recurrent pancreatitis. 55yo female presenting for cc of epigastric abdominal pain x 3 days. Patient states that she has been having epigastric dull pain since Wednesday. She states she has associated nausea. States she is unable to keep anything down due to vomiting. She states that she has yellow stool. Patient states she has a history of pancreatitis the past. She states that this feels similar however she feels it more in her back. She denies any chest pain shortness of breath melena hematochezia. Patient denies additional complaints. Recently scheduled a HIDA scan to evaluate her gallbladder. Denies ETOH abuse, unsure of why she has on and off pancreatitis. Patient's pain is nonradiating. No associated fever chills. Patient has mildly elevated lipase of 1100 along with mildly elevated amylase and normal ultrasound of the abdomen computed tomography scan was ordered by general surgery patient does have history of hiatal hernia usually follows up with the general surgery there was a plan to get a HIDA scan as an outpatient by general surgery. Patient denied any alcohol abuse but does use marijuana occasionally and used to smoke in the past 08/28/2020 Patient is currently lying in the bed comfortably. No complaints of chest pain. Abdominal pain is much improved. Patient follows with Dr. Padilla due to recurrent abdominal pain in the epigastric and right upper quadrant region. Pain worsens with fatty foods. No history of gallstones or alcohol abuse. General surgery is planning for cholecystectomy tomorrow. Currently being continued PPI. EGD on 08/28/20 FINDINGS: Squamocolumnar junction 35 cm from the incisors. Diaphragmatic hiatus at 38 cm. Hiatal hernia, 3 cm Hill grade 3 lower esophageal valve. LA grade B erosive esophagitis with acute ulceration Active duodenitis. Chronic gastritis Laboratory data showed triglycerides 220, amylase 75, lipase came down to 276, urinalysis is negative for infection. Current Medications Reviewed. Objective - Vital Signs Vital signs: Vital Signs Temp 98.6 F 08/28/20 17:15 Pulse 66 08/28/20 17:15 Resp 18 08/28/20 17:15 BP 123/79 08/28/20 17:15 Pulse Ox 97 08/28/20 17:15 Intake & Output 08/27/20 08/28/20 08/28/20 18:59 06:59 18:59 Intake Total 100 Balance 100 Intake: IV 100 Other: Voiding Method Toilet # Voids 1 1 1 - Exam PHYSICAL EXAMINATION: GENERAL: The patient is alert and oriented x3, not in any acute distress. Well developed, well nourished. HEENT: Pupils are round and equally reacting to light. EOMI. No scleral icterus. No conjunctival pallor. Normocephalic, atraumatic. No pharyngeal erythema. No thyromegaly. CARDIOVASCULAR: S1 and S2 present. No murmurs, rubs, or gallops. PULMONARY: Chest is clear to auscultation, no wheezing or crackles. ABDOMEN: Soft, mild tenderness in the epigastric area without any rebound or rigidity, nondistended, normoactive bowel sounds. No palpable organomegaly. MUSCULOSKELETAL: No joint swelling or deformity. EXTREMITIES: No cyanosis, clubbing, or pedal edema. NEUROLOGICAL: Gross neurological examination did not reveal any focal deficits. SKIN: No rashes. - Labs CBC & Chem 7: 08/28/20 06:35 08/28/20 06:35 Labs: Abnormal Lab Results - Last 24 Hours (Table) 08/28/20 Range/Units 06:35 Chloride 109 H (98-107) mmol/L BUN 6 L (7-17) mg/dL Creatinine 0.51 L (0.52-1.04) mg/dL Assessment and Plan Assessment: -acute recurrent pancreatitis. Patient does have recurrent episodes of pancreatitis and fatty food intolerance. no Hx of Gall stones. TG not elevated. no hx of ETOH abuse - hiatal hernia and gastroesophageal reflux disease . s/p.hiatal hernia repair by Dr. Schmidt 2 years ago. Patient will be continued on Protonix general surgery was consulted. - Depression continue with the SSRI whenever she can tolerate the diet - history of pancreatitis in the past - Hypomagnesemia. Replaced. -DVT prophylaxis early ambulation Time with Patient: Greater than 30
[2020-08-29] MEDS: MAGNESIUM SULFATE-D5W PMX 1 GM in DEXTROSE/WATER 1 100ML.BAG IVPB SCH ×2 (05:43→06:54)
[2020-08-29] MEDS: ONDANSETRON 4 MG/2 ML VIAL IVP SCH ×3 (05:44→18:39)
[2020-08-29] MEDS: SODIUM CHLORIDE 0.9% 1,000 ML IV SCH ×2 (06:55→20:25)
[2020-08-29 07:42] LABS: Basophils % (A) 1 %; Eosinophils # (A) 0.1 k/uL (0-0.7); Eosinophils % (A) 1 %; HCT 37.5 % (34.0-46.0); HGB 12.4 gm/dL (11.4-16.0); Lymphocytes # (A) 2.9 k/uL (1.0-4.8); Lymphocytes % (A) 49 %; MCH 30.5 pg (25.0-35.0); MCHC 33.1 g/dL (31.0-37.0); Monocytes # (A) 0.4 k/uL (0-1.0); Monocytes % (A) 6 %; Neutrophils # (A) 2.4 k/uL (1.3-7.7); Neutrophils % (A) 41 %; Platelet Count 226 k/uL (150-450); RBC 4.08 m/uL (3.80-5.40); RDW 13.3 % (11.5-15.5)
[2020-08-29 07:54] LABS: African American GFR (CKD) >90 (>60 ml/min/1.73 sqM); Anion Gap 3 mmol/L; Blood Urea Nitrogen 6 mg/dL (7-17); Calcium 8.4 mg/dL (8.4-10.2); Carbon Dioxide 27 mmol/L (22-30); Chloride 109 mmol/L (98-107); Glucose 104 mg/dL (74-99); Magnesium 2.7 mg/dL (1.6-2.3); Non-African American GFR(CKD) >90 (>60 ml/min/1.73 sqM); Potassium 3.6 mmol/L (3.5-5.1); Sodium 139 mmol/L (137-145)
[2020-08-29 08:02] LABS: Partial Thromboplastin Time 23.2 sec (22.0-30.0)
[2020-08-29] MEDS: PANTOPRAZOLE 40 MG/10 ML VIAL IVP SCH ×2 (08:57→20:24)
[2020-08-29] MEDS: KETOROLAC 15 MG/ML 1 ML VIAL IVP PRN ×2 (09:00→21:41)
[2020-08-29 10:23] LABS: Albumin 3.4 g/dL (3.5-5.0); Bilirubin,Unconjugated 0.3 mg/dL (0.0-1.1); Total Bilirubin 0.3 mg/dL (0.2-1.3); Total Protein 5.9 g/dL (6.3-8.2)
[2020-08-29] MEDS ORDERED: GABAPENTIN 300 MG CAP PO ONE (11:00)
[2020-08-29] MEDS ORDERED: ACETAMINOPHEN TAB 500 MG TAB PO ONE (11:00)
[2020-08-29] MEDS ORDERED: INDOCYANINE GREEN 25 MG VIAL IV ONE (12:00)
[2020-08-29] MEDS ORDERED: IV FLUID CONTINUATION 1,000 ML IV ONE (12:01)
[2020-08-29] MEDS ORDERED: HEPARIN SODIUM,PORCINE 5,000 UNIT/ML 1 ML VIAL ONE (12:11)
[2020-08-29] MEDS ORDERED: MIDAZOLAM 2 MG/2 ML VIAL ONE (14:05)
[2020-08-29] MEDS ORDERED: KETOROLAC 15 MG/ML 1 ML VIAL ONE (14:05)
[2020-08-29] MEDS ORDERED: fentaNYL (PF) 50 MCG/ML 2 ML AMP ONE (14:05)
[2020-08-29] MEDS ORDERED: NEOSTIGMINE 1 MG/ML 10 ML VIAL ONE (14:05)
[2020-08-29] MEDS ORDERED: GLYCOPYRROLATE 0.2 MG/ML 2 ML VIAL ONE (14:05)
[2020-08-29] MEDS ORDERED: SUCCINYLCHOLINE CHLORIDE 100 MG/5 ML SYR IV ONE (14:05)
[2020-08-29] MEDS ORDERED: HYDROmorphone (PF) 1 MG/ML ONE (14:05)
[2020-08-29] MEDS ORDERED: ROCURONIUM 10 MG/ML (10 ML VIAL) IV ONE (14:05)
[2020-08-29] MEDS ORDERED: PROPOFOL 10 MG/ML 20 ML VIAL IV ONE (14:05)
--- NOTE | 2020-08-29 14:30 | P.PN ---
Subjective Progress Note Date: 08/29/20 Principal diagnosis: pancreatitis Is a 85-year-old female who came in for abdominal pain, nausea, and vomiting. She was found to have acute pancreatitis. Malaise and lipase have normalized. Patient was seen by surgery Dr. Hidalgo and underwent upper endoscopy yesterday revealed erosive esophagitis, recurrent diaphragmatic hiatal hernia, gastritis, and duodenitis. She is scheduled today for laparoscopic cholecystectomy. The patient states she had a couple episodes of emesis yesterday evening, none today. She states her abdominal pain has improved as well as diarrhea. She has been afebrile, with no acute changes through the night. Objective - Vital Signs Vital signs: Vital Signs Temp 97.6 F 08/29/20 12:00 Pulse 56 L 08/29/20 12:00 Resp 16 08/29/20 12:00 BP 135/60 08/29/20 12:00 Pulse Ox 97 08/29/20 12:00 Intake & Output 08/28/20 08/29/20 08/29/20 18:59 06:59 18:59 Intake Total 100 100 Balance 100 100 Weight 82.554 kg Intake: IV 100 100 Other: Voiding Method Toilet Toilet # Voids 1 1 # Emeses 2 - Exam General appearance: The patient is alert, oriented, in no acute distress. HET: Head is normocephalic and atraumatic. Conjunctiva pink. Sclera anicteric. Neck: Supple without lymphadenopathy. Abdomen: Soft, mild upper quadrant and epigastric tenderness, nondistended with bowel sounds. No guarding or rigidity. Extremities: Normal skin color and turgor. No pedal edema Neurological: No focal deficits. Alert and oriented 3. - Labs CBC & Chem 7: 08/29/20 07:14 08/29/20 07:14 Labs: Abnormal Lab Results - Last 24 Hours (Table) 08/29/20 08/29/20 Range/Units 07:14 07:14 Chloride 109 H (98-107) mmol/L BUN 6 L (7-17) mg/dL Glucose 104 H (74-99) mg/dL Magnesium 2.7 H (1.6-2.3) mg/dL Total Protein 5.9 L (6.3-8.2) g/dL Albumin 3.4 L (3.5-5.0) g/dL Assessment and Plan Assessment: 1. Acute recurrent pancreatitis for the last 4 years duration. The patient had at least 6 episodes of pancreatitis in the past. She was investigated [facility] and had endoscopic ultrasound of the pancreas in 2017, results of which are not available at this time. The patient was told she had is idiopathic pancreatitis. She presented to the hospital with nausea, vomiting and epigastric pain for the last 3 days duration was noted to have an elevated lipase consistent with acute pancreatitis. Lipase and Amylase are normal. Symptoms improved. 2. Gastroesophageal reflux disease status post hiatal hernia repair by Dr. Schmidt 2 years ago. Patient underwent upper endoscopy yesterday with Dr. Hidalgo. Findings reported as gastroesophageal reflux disease with erosive esophagitis, recurrent diaphragmatic hiatal hernia, gastritis, duodenitis. She is scheduled for cholecystectomy today Dr. Hidalgo. Plan: 1. Advance diet as tolerated per recommendations from surgery 2. Continue Protonix IV 3. Continue with antiemetics as needed 4. From a gastroenterology standpoint patient may be discharged home once medically stable. Patient should follow-up with gastroenterology in 2-3 weeks. 5. Repeat labs in morning The impression and plan of care has been dictated as directed. Dr. Roxy Coats I performed a history and examination of this patient, discussed the same with the dictator. I agree with the dictator's note ,documented as a scribe. Any additional findings or plans will be noted.
[2020-08-29] MEDS ORDERED: BUPIVACAINE (PF) 0.25% 30 ML VIAL SQ ONE ×2 (14:33→14:36)
[2020-08-29] MEDS ORDERED: LACTATED RINGERS 1,000 ML IV ONE (15:14)
--- NOTE | 2020-08-29 15:29 | P.OP ---
Date of Procedure: 08/29/20 Description of Procedure: SURGEON: LEHA RANDALL MD PREOPERATIVE DIAGNOSES: 1. Right upper quadrant abdominal pain 2. Chronic cholecystitis 3. Acute pancreatitis 4. Gastroesophageal reflux disease 5. Obesity due to excess calories, BMI 30.3 6. Depressive disorder POSTOPERATIVE DIAGNOSES: 1. Right upper quadrant abdominal pain 2. Chronic cholecystitis 3. Acute pancreatitis 4. Gastroesophageal reflux disease 5. Obesity due to excess calories, BMI 30.3 6. Depressive disorder 7. Peritoneal adhesions, right upper quadrant OPERATION: 1. Robotic-assisted da Brittaney Xi laparoscopic lysis of adhesions 2. Robotic-assisted da Brittaney Xi laparoscopic cholecystectomy, multiport with FIREFLY ESTIMATED BLOOD LOSS: 5 mL. SPECIMENS REMOVED: Gallbladder. COMPLICATIONS: None. OPERATIVE FINDINGS: 1. Moderate scarring over entire gallbladder with peritoneal adhesions, angelica cholecystic with features of chronic cholecystitis 2. Moderate omental adhesions to abdominal wall, right upper quadrant INDICATIONS: The patient is a 55-year-old female who presents with acute panc reatitis including chronic cholecystitis. Robotic assisted laparoscopic approach was described. Benefits and risks of the procedure including but not limited to bleeding, infection, injury to the biliary tree was described. Informed consent was obtained. DESCRIPTION OF PROCEDURE: Patient was brought to the operating room, placed in supine position. After general induction, the abdomen had been prepped and draped in standard sterile fashion. The robotic da Brittaney XI system was primed. After a timeout protocol was performed, the patient had been prepped and draped in standard sterile fashion. The patient was injected with indocyanine green. A 5 mm 0 degrees laparoscopic trocar entry was performed along the left upper quadrant. The abdomen insufflated to 15 mmHg pressure which was tolerated well. Diagnostic laparoscopy demonstrated no injury to bowel viscera or mesentery. The liver surface was unremarkable. Next, two 8 mm robotic ports were placed along the right upper abdomen. The camera 8-mm port was maintained along the epigastrium. Another 8 mm port was placed along the left upper abdominal wall after exchanging the 5 mm port. Please note that the ports were placed at least 10 to 15 cm away from the target anatomy of the gallbladder. The robot was docked along the left lateral abdomen. The patient was repositioned in reverse Trendelenburg position. Using a grasper for arm 3, a grasper for arm 4, including hook cautery for arm 1, the robotic system was docked and primed as described. Instruments were interchanged by the respiratory therapist assistant including hook cautery, Bovie cautery and clip appliers. I had sat at the console. The gallbladder was scarred with peritoneal adhesions. Lysis of adhesions was performed to free the gallbladder from the surrounding tissues. Next attention was brought to the infundibulum and cystic structures. The infundibulum and cystic duct were dissected free from surrounding tissues. The cystic duct was isolated. FIREFLY was used to identify the cystic artery and cystic structures. A critical view of safety was obtained. Large PLASTIC clips were used throughout the entire case. Using a clip editor greeting card, 2 clips were placed at the junction of the infundibulum and cystic duct. The cystic duct was divided between clips. Next, the cystic artery was similarly clipped and cauterized. Electro-Bovie cautery was used to remove the gallbladder from the hepatic fossa. Hemostasis was checked and found to be adequate. The robot was undocked. I re-scrubbed into the case. Using a 10 mm Endo Catch bag via the left upper quadrant incision, the specimen was removed from the abdominal cavity. The fascial incision was widened to remove the gallbladder specimen. To close the fascial defect, ovary: Isaiah Marshall was used to close the fascia of the left upper quadrant. All pneumoperitoneum instruments were evacuated from the abdominal cavity. The incisions were reapproximated using 4-0 Monocryl in an interrupted subcuticular fashion. Please note along the trocar sites, local anesthetic was placed as a field block prior to insertion of all instruments. Liquid glue was applied to the skin. At the end of the procedure needle, sponge, and instrument count had been verified correct by the operating room surgical technician. The patient was transferred to postanesthesia care unit in stable condition. Intraoperative films were shared with the patient's family.
[2020-08-29] MEDS ORDERED: HYDROmorphone 0.5 MG/0.5 ML SYRINGE IVP PRN (17:38)
[2020-08-29] MEDS: ACETAMINOPHEN TAB 500 MG TAB PO SCH ×2 (18:36→23:54)
[2020-08-30] MEDS: ONDANSETRON 4 MG/2 ML VIAL IVP SCH ×3 (01:02→12:27)
[2020-08-30] MEDS: ACETAMINOPHEN TAB 500 MG TAB PO SCH ×2 (06:06→12:25)
[2020-08-30] MEDS: SODIUM CHLORIDE 0.9% 1,000 ML IV SCH (06:06)
[2020-08-30 06:14] VITALS: PULSE 54; RESP 16
[2020-08-30] MEDS: KETOROLAC 15 MG/ML 1 ML VIAL IVP PRN (06:18)
[2020-08-30] MEDS ORDERED: ENOXAPARIN 30 MG/0.3 ML SYRINGE SQ SCH (09:00)
--- NOTE | 2020-08-30 09:24 | P.DS ---
<Kathleen Meredith - Last Filed: 08/30/20 09:19> Providers Expected date of discharge: 08/30/20 Hospital Course: Discharge diagnosis 1. Right upper quadrant abdominal pain 2. Chronic cholecystitis 3. Acute pancreatitis 4. Gastroesophageal reflux disease 5. Obesity due to excess calories, BMI 30.3 6. Depressive disorder 7. Peritoneal adhesions, right upper quadrant Hospital course This is a 55-year-old female with a known history of pancreatitis, hiatal hernia with repair 2, infectious colitis and a hysterectomy about 8 months ago. Patient reports she's probably had about 5 episodes of pancreatitis. She believes her last one was about 3 months ago in which she took care of at home on her own. Patient presents to the emergency room with complaints of epigastric pain for about 3 days. She also has been having nausea and vomiting and unable to keep any food down. She has been complaining of heartburn and indigestion type symptoms. She reports that the pain radiated from the epigastric area to her back also she felt pain in the right upper quadrant and into the shoulder area. Abdominal ultrasound shows no gallstones or dilated ducts. No evidence of pancreatic mass. There is probably some fatty infiltration of the liver. He was found to have elevated amylase and lipase and was diagnosed with an acute pancreatitis. CT abdomen correlate for hepatic steatosis. Did also noted surgical changes at the gastroesophageal junction, there may be a small hiatal hernia or distal esophageal thickening which is indeterminate. Patient had EGD completed showing GERD with erosive esophagitis, recurrent diaphragmatic hiatal hernia, chronic gastritis and chronic duodenitis. Patient Is status post robotic-assisted da Brittaney Xi laparoscopic lysis of adhesions and Robotic- assisted da Brittaney Xi laparoscopic cholecystectomy. Patient tolerated surgery well. She tolerated diet. She's up and ambulate in. Pain is controlled. She's afebrile. Patient is stable for discharge Physician Direct Care Supervisor note has been reviewed by physician. Signing provider agrees with the documented findings, assessment, and plan of care. Patient Condition at Discharge: Stable Plan - Discharge Summary Discharge Rx Participant: No New Discharge Prescriptions: New Naproxen [Naprosyn] 250 mg PO TID PRN #30 tab PRN Reason: Pain Acetaminophen Tab [Tylenol Tab] 1,000 mg PO Q6HR PRN #30 tablet PRN Reason: Pain Continue FLUoxetine HCL [PROzac] 20 mg PO HS Discharge Medication List FLUoxetine HCL [PROzac] 20 mg PO HS 08/27/20 [History] Acetaminophen Tab [Tylenol Tab] 1,000 mg PO Q6HR PRN #30 tablet 08/29/20 [Rx] Naproxen [Naprosyn] 250 mg PO TID PRN #30 tab 08/29/20 [Rx] Follow up Appointment(s)/Referral(s): Ana Luisa Hidalgo MD [STAFF PHYSICIAN] - 09/03/20 3:45 pm (09/03/2020 @3:45pm) Nolvia Coats MD [STAFF PHYSICIAN] - 2 Weeks Isaias Romero DO [Primary Care Provider] - 1-2 days Patient Instructions/Handouts: Low Fat Diet (DC), Abdominal Binder (DC), Laparoscopic Cholecystectomy (DC) Activity/Diet/Wound Care/Special Instructions: Wear abdominal binder at all times No lifting over 10 pounds in 2 weeks until Sep 12. March shower. No bath tub soaks for two weeks until Sep 12. Diet as tolerated. No driving while on narcotics. Use Tylenol and ibuprofen/Aleve scheduled for the next 24-48 hours for best pain relief. Use ice along incisions for the today to prevent swelling. Discharge Disposition: HOME SELF-CARE <Ana Luisa Hidalgo - Last Filed: 08/31/20 21:02> Providers Date of admission: 08/27/20 08:40 Attending physician: Harlan Santiago Consults: 08/26/20 22:47 Consult Physician Routine Consulting Provider: Nolvia oCats Consult Reason/Comments: Pancreatitis Do you want consulting provider notified?: Yes 08/27/20 09:16 Consult Physician Routine Consulting Provider: Ana Luisa Hidalgo Consult Reason/Comments: known outpatient, abdominal pain Do you want consulting provider notified?: Yes 08/29/20 07:10 Consult Physician Routine Consulting Provider: [facility] Consult Reason/Comments: [facility] Do you want consulting provider notified?: Yes Primary care physician: Isaias Romero - Discharge Diagnosis(es) (1) Cholecystitis Status: Acute (2) Pancreatitis Status: Acute Hospital Course: As above. Patient presented with right upper quadrant pain with pancreatitis and clinical features of cholecystitis. She had presented with intractable nausea and vomiting with treatment using medications. Clinical picture was consistent with cholecystitis. She was treated with cholecystectomy. She had done well postoperatively and was discharged in stable condition.
[2020-08-30] MEDS: PANTOPRAZOLE 40 MG/10 ML VIAL IVP SCH (09:32)
[2020-08-30 09:44] VITALS: BP 144/80; TEMP 98.2
== END 2020-08-30 12:35 | disposition home or self-care (01) | DRG 417 ==
LOC: EC 21:59 → SUPCPDRO 21:59 → 1SOBS 22:55 → OBSVTOIN 08-27 08:40 → 6PED 08-28 17:13
PROVIDERS: ADMIT Hospitalist; ATTEND Hospitalist
PROC: 0DB78ZX Excision of Stomach, Pylorus, Via Natural or Artificial Opening Endoscopic, Diagnostic (ICD-10-PCS; 2020-08-28)
PROC: 0DB98ZX Excision of Duodenum, Via Natural or Artificial Opening Endoscopic, Diagnostic (ICD-10-PCS; 2020-08-28)
PROC: 0DB38ZX Excision of Lower Esophagus, Via Natural or Artificial Opening Endoscopic, Diagnostic (ICD-10-PCS; 2020-08-28)
PROC: 0FT44ZZ Resection of Gallbladder, Percutaneous Endoscopic Approach (ICD-10-PCS; principal; 2020-08-29 13:15)
DX: K81.2 Acute cholecystitis with chronic cholecystitis (principal); K85.80 Other acute pancreatitis without necrosis or infection; K90.49 Malabsorption due to intolerance, not elsewhere classified; K22.10 Ulcer of esophagus without bleeding; K86.1 Other chronic pancreatitis; K76.0 Fatty (change of) liver, not elsewhere classified; E66.09 Other obesity due to excess calories; E83.42 Hypomagnesemia; F32.9 Major depressive disorder, single episode, unspecified; K21.00 Gastro-esophageal reflux disease with esophagitis, without bleeding; K44.9 Diaphragmatic hernia without obstruction or gangrene; G43.909 Migraine, unspecified, not intractable, without status migrainosus; I83.90 Asymptomatic varicose veins of unspecified lower extremity; K64.9 Unspecified hemorrhoids; M19.90 Unspecified osteoarthritis, unspecified site; K29.50 Unspecified chronic gastritis without bleeding; K29.80 Duodenitis without bleeding; Z68.30 Body mass index [BMI] 30.0-30.9, adult; Z90.710 Acquired absence of both cervix and uterus; Z98.51 Tubal ligation status; Z79.899 Other long term (current) drug therapy; Z88.5 Allergy status to narcotic agent; Z98.890 Other specified postprocedural states; Z87.891 Personal history of nicotine dependence; Z87.19 Personal history of other diseases of the digestive system; Z80.1 Family history of malignant neoplasm of trachea, bronchus and lung; Z82.3 Family history of stroke; Z82.49 Family history of ischemic heart disease and other diseases of the circulatory system
CPT/HCPCS: 36415; 43239; 74160; 76705; 80048; 80053; 80061; 80076; 81003; 82150; 83690; 83735; 85025; 85027; 85610; 85730; 88304; 88305; 96361; 96374; 96375; 99285

== ENCOUNTER 2020-09-30 10:55 | Day surgery (SDC) | payer MEDICAID ==
[2020-09-25 11:53] VITALS: BMI 30.2
--- NOTE | 2020-09-30 10:30 | P.GSHP ---
History of Present Illness H&P Date: 09/30/20 CHIEF COMPLAINT: History of intra-abdominal adhesions HISTORY OF PRESENT ILLNESS: The patient is a 55-year-old female who presents with history of intra-abdominal adhesions and increasing left upper quadrant abdominal pain. She now presents for diagnostic laparoscopy including lysis of adhesions. PAST MEDICAL HISTORY: Please see list. PAST SURGICAL HISTORY: Please see list. MEDICATIONS: Please see list. ALLERGIES: Please see list. SOCIAL HISTORY: No illicit drug use FAMILY HISTORY: No reports of Crohn disease or ulcerative colitis. REVIEW OF ORGAN SYSTEMS: CONSTITUTIONAL: No reports of fevers or chills. GI: Denies any blood in stools or constipation. PHYSICAL EXAM: VITAL SIGNS: Stable GENERAL: Well-developed pleasant and in no acute distress. HEENT: No scleral icterus. Extraocular movements grossly intact. Moist buccal mucosa. NECK: Supple without lymphadenopathy. CHEST: Unlabored respirations. Equal bilateral excursions. CARDIOVASCULAR: Regular rate and rhythm. Distal 2+ pulses. ABDOMEN: Soft, tenderness along the left upper quadrant MUSCULOSKELETAL: No clubbing, cyanosis, or edema. ASSESSMENT: 1. Left upper quadrant abdominal pain 2. History of multiple abdominal surgeries. 3. Intra-abdominal adhesions. PLAN: 1. Robotic lysis of adhesions were described in detail including risk of injury to the intestine, need for further surgery, and open technique. 2. DVT prophylaxis. 3. Antibiotic prophylaxis. Past Medical History Past Medical History: GERD/Reflux, Osteoarthritis (OA) Additional Past Medical History / Comment(s): Pancreatitis-chronic, migraines, occasional heart palpitations, bilateral leg varicose veins. hx inflammation disc in back, recent admission for abd. pain, cholecystitis History of Any Multi-Drug Resistant Organisms: None Reported Past Surgical History: Section, Cholecystectomy, Hernia Repair, Hysterectomy, Tubal Ligation Additional Past Surgical History / Comment(s): HYSTEROSCOPY/D&C-January 2016, 06/2019; EGD, COLONOSCOPY, HIATAL HERNIA REPAIR X2. Past Anesthesia/Blood Transfusion Reactions: Motion Sickness, Postoperative Nausea & Vomiting (PONV) Additional Past Anesthesia/Blood Transfusion Reaction / Comment(s): SEVERE VOMITING POST OP- states was medicated with IV and scopolamine that helped Smoking Status: Former smoker - Past Family History Father Family Medical History: Cancer Additional Family Medical History / Comment(s): LUNG CA. Brother(s) Family Medical History: CVA/TIA, Myocardial Infarction ([place]) Additional Family Medical History / Comment(s): Pt has 2 brothers with CVAs and one brother with a [place]. Mother Family Medical History: No Reported History Additional Family Medical History / Comment(s): Mother is healthy and in her 80s. Son(s) Family Medical History: Blood Disorder Additional Family Medical History / Comment(s): [employer]. Medications and Allergies Home Medications Medication Instructions Recorded Confirmed Type FLUoxetine HCL [PROzac] 10 mg PO HS 08/27/20 09/25/20 History Acetaminophen Tab [Tylenol Tab] 1,000 mg PO Q6HR PRN #30 tablet 08/29/20 09/25/20 Rx Allergies Allergy/AdvReac Type Severity Reaction Status Date / Time codeine AdvReac Severe Nausea & Verified 09/25/20 11:50 Vomiting
[~2020-09-30 10:55] MED LIST changes: +ACETAMINOPHEN TAB 500 MG TAB PO STA; -DEXAMETHASONE SOD PHOSPHATE 10 MG/ML 1 ML VIAL IV ONE; +DEXAMETHASONE SOD PHOSPHATE 4 MG/ML 1 ML VIAL IV ONE; +GABAPENTIN 300 MG CAP PO STA; +HEPARIN SODIUM,PORCINE 5,000 UNIT/ML 1 ML VIAL SQ PRN; +HYDROmorphone 0.5 MG/0.5 ML SYRINGE IVP PRN; +LIDOCAINE 1% (10MG/ML) FOR IV START INTRADERMA PRN; -LIDOCAINE 1% 20 ML VIAL (10MG/ML) FOR IV START INTRADERMA PRN; +MIDAZOLAM 2 MG/2 ML VIAL IV PRN; +ONDANSETRON 4 MG/2 ML VIAL IVP ONE; -SCOPOLAMINE 1.5MG/72HR PATCH TRANSDERM ONE; +SCOPOLAMINE 1.5MG/72HR PATCH TRANSDERM STA
[2020-09-30] MEDS ORDERED: MIDAZOLAM 2 MG/2 ML VIAL IVP ONE (11:48)
[2020-09-30] MEDS ORDERED: NEOSTIGMINE 1 MG/ML 10 ML VIAL ONE (13:07)
[2020-09-30] MEDS ORDERED: fentaNYL (PF) 50 MCG/ML 2 ML AMP ONE (13:07)
[2020-09-30] MEDS ORDERED: LIDOCAINE 1% INJ 10MG/ML (20 ML MDV) ONE (13:07)
[2020-09-30] MEDS ORDERED: GLYCOPYRROLATE 0.2 MG/ML 2 ML VIAL ONE (13:07)
[2020-09-30] MEDS ORDERED: PROPOFOL 10 MG/ML 20 ML VIAL IV ONE (13:07)
[2020-09-30] MEDS ORDERED: ROCURONIUM 10 MG/ML (10 ML VIAL) IV ONE (13:07)
[2020-09-30] MEDS ORDERED: SUCCINYLCHOLINE CHLORIDE 100 MG/5 ML SYR IV ONE (13:07)
[2020-09-30] MEDS ORDERED: PHENYLEPHRINE-0.9% NACL SYG 1 MG/10 ML SYRINGE ONE (13:07)
[2020-09-30] MEDS ORDERED: MIDAZOLAM 2 MG/2 ML VIAL ONE (13:07)
[2020-09-30] MEDS ORDERED: SCOPOLAMINE 1.5MG/72HR PATCH TRANSDERM ONE (13:08)
[2020-09-30] MEDS ORDERED: BUPIVACAINE (PF) 0.25% 30 ML VIAL SQ ONE (13:12)
[2020-09-30] MEDS ORDERED: LACTATED RINGERS 1,000 ML IV ONE (13:54)
--- NOTE | 2020-09-30 14:21 | P.OP ---
Date of Procedure: 09/30/20 Description of Procedure: SURGEON: ANA LUISA HIDALGO MD PREOPERATIVE DIAGNOSES: 1. Left upper quadrant abdominal pain 2. History of multiple abdominal surgeries 3. History of peritoneal adhesions 4. History of pancreatitis 5. Gastroesophageal reflux disease 6. Depressive disorder POSTOPERATIVE DIAGNOSES: 1. Left upper quadrant abdominal pain 2. History of multiple abdominal surgeries 3. History of peritoneal adhesions 4. History of pancreatitis 5. Gastroesophageal reflux disease 6. Depressive disorder OPERATION: 1. Robotic-assisted da Brittaney Xi laparoscopic with lysis of adhesions ESTIMATED BLOOD LOSS: 5 mL. SPECIMENS REMOVED: None. COMPLICATIONS: None. OPERATIVE FINDINGS: 1. Severe adhesions involving the lower abdomen including right upper quadrant as well as left upper quadrant all lysed using vessel sealer including hook cautery INDICATIONS: The patient is a 55-year-old female who presents with severe epigastric and left upper quadrant abdominal pain with history of multiple abdominal procedures. Surgical intervention with diagnostic laparoscopy, lysis of adhesions were described. Informed consent was obtained. Robotic assisted laparoscopic approach was described. Benefits and risks of the procedure including but not limited to bleeding, infection was described. Informed consent was obtained. DESCRIPTION OF PROCEDURE: Patient was brought to the operating room, placed in supine position. After general induction, the abdomen had been prepped and draped in standard sterile fashion. The robotic da Brittaney XI system was primed. After a timeout protocol was performed, the patient had been prepped and draped in standard sterile fashion. The robot was docked along the left lateral abdomen. Please note prior to docking of the robot; however, a 5 mm 0 degrees laparoscopic trocar entry was performed along the left upper quadrant. Next, three 8 mm robotic ports were placed along the left lateral abdominal wall abdomen. Trochars were placed at least 10 to 15 cm away from the target anatomy. Instruments including graspers and scissors with vessel sealer were interchanged by the medical assistant dermatology. I had sat at the console. Greater omental adhesions to the mid abdominal wall were identified involving the lower abdomen including right upper quadrant as well as left upper quadrant. All adhesions were sharply divided using vessel sealer including hook cautery until completely clear. Hemostasis was checked. No large or small bowel obstruction was identified. The robot was undocked. All pneumoperitoneum and instruments were evacuated from the abdominal cavity. The incisions were reapproximated using 4-0 Monocryl in an interrupted subcuticular fashion. Please note along the trocar sites, local anesthetic was placed as a field block prior to insertion of all instruments. Exofin was applied to the skin. At the end of the procedure needle, sponge, and instrument count had been verified correct by the surgical appliances salesperson. The patient was transferred to postanesthesia care unit in stable condition. Plan - Discharge Summary Discharge Rx Participant: No New Discharge Prescriptions: New Ibuprofen [Motrin] 600 mg PO Q8HR PRN #30 tab PRN Reason: Pain Gabapentin [Neurontin] 300 mg PO TID #9 cap Acetaminophen Tab [Tylenol Tab] 1,000 mg PO Q6HR PRN #30 tablet Continue FLUoxetine HCL [PROzac] 10 mg PO HS Discontinued Acetaminophen Tab [Tylenol Tab] 1,000 mg PO Q6HR PRN #30 tablet PRN Reason: Pain Discharge Medication List FLUoxetine HCL [PROzac] 10 mg PO HS 08/27/20 [History] Acetaminophen Tab [Tylenol Tab] 1,000 mg PO Q6HR PRN #30 tablet 09/30/20 [Rx] Gabapentin [Neurontin] 300 mg PO TID #9 cap 09/30/20 [Rx] Ibuprofen [Motrin] 600 mg PO Q8HR PRN #30 tab 09/30/20 [Rx] Follow up Appointment(s)/Referral(s): Ana Luisa Hidalgo MD [STAFF PHYSICIAN] - 10/08/20 3:30 pm Patient Instructions/Handouts: *Surgery [facility] - (Anesthesia) Discharge Instructions Outpatient Surgery, Lysis of Abdominal Adhesions (DC) Activity/Diet/Wound Care/Special Instructions: No lifting over 10 pounds in 2 weeks until Oct 14March shower. No bath tub soaks for two weeks until Oct 14 Diet as tolerated. Use Tylenol and ibuprofen or Aleve scheduled for the next 24-48 hours for best pain relief. Use ice along incisions for the today to prevent swelling. Discharge Disposition: HOME SELF-CARE
[2020-09-30 14:23] VITALS: TEMP 96.8
[2020-09-30] MEDS ORDERED: KETOROLAC 15 MG/ML 1 ML VIAL IVP ONE (14:30)
[2020-09-30 15:33] VITALS: RESP 20
[2020-09-30] MEDS ORDERED: IBUPROFEN 200 MG TAB PO ONE (15:52)
[2020-09-30 16:12] VITALS: BP 134/63; PULSE 59
[2020-09-30] MEDS ORDERED: KETOROLAC 15 MG/ML 1 ML VIAL IVP SCH (19:30)
== END 2020-09-30 16:30 | disposition home or self-care (01) ==
LOC: OR 10:55
PROVIDERS: ATTEND Surgery Plastic and Reconstructive Surgery
DX: K66.0 Peritoneal adhesions (postprocedural) (postinfection) (principal); E11.9 Type 2 diabetes mellitus without complications; K21.9 Gastro-esophageal reflux disease without esophagitis; M19.90 Unspecified osteoarthritis, unspecified site; K86.1 Other chronic pancreatitis; K86.81 Exocrine pancreatic insufficiency; G43.909 Migraine, unspecified, not intractable, without status migrainosus; I83.93 Asymptomatic varicose veins of bilateral lower extremities; K08.89 Other specified disorders of teeth and supporting structures; F32.9 Major depressive disorder, single episode, unspecified; Z88.5 Allergy status to narcotic agent; Z98.890 Other specified postprocedural states; Z87.39 Personal history of other diseases of the musculoskeletal system and connective tissue; Z90.49 Acquired absence of other specified parts of digestive tract; Z87.19 Personal history of other diseases of the digestive system; Z90.710 Acquired absence of both cervix and uterus; Z98.51 Tubal ligation status; Z87.898 Personal history of other specified conditions; Z91.89 Other specified personal risk factors, not elsewhere classified; Z87.891 Personal history of nicotine dependence; Z79.899 Other long term (current) drug therapy; Z80.1 Family history of malignant neoplasm of trachea, bronchus and lung; Z82.3 Family history of stroke; Z82.49 Family history of ischemic heart disease and other diseases of the circulatory system; Z83.2 Family history of diseases of the blood and blood-forming organs and certain disorders involving the immune mechanism
CPT/HCPCS: 49329; S2900

== ENCOUNTER 2020-11-24 14:19 | Emergency (ER) | payer OTHER ==
[2020-11-24 14:41] VITALS: TEMP 98.8
[2020-11-24] MEDS ORDERED: SODIUM CHLORIDE 0.9% 1,000 ML IV STA (14:52)
[2020-11-24] MEDS ORDERED: ONDANSETRON 4 MG/2 ML VIAL IVP STA (14:52)
[2020-11-24] MEDS ORDERED: KETOROLAC 15 MG/ML 1 ML VIAL IVP STA (14:52)
[2020-11-24] MEDS ORDERED: FAMOTIDINE 20 MG/2 ML VIAL IV STA (14:53)
--- NOTE | 2020-11-24 14:53 | ED ---
Abdominal Pain HPI - General Chief Complaint: Abdominal Pain Stated Complaint: Abd Pain Time Seen by Provider: 11/24/20 14:49 Source: patient Mode of arrival: ambulatory Limitations: no limitations - History of Present Illness Initial Comments: 55-year-old female presenting to the emergency department with chief complaint abdominal pain. Patient reports history of cholecystectomy 1 month with known postsurgical competitions. She states about 3 days ago she developed nausea with multiple episodes no murmurs, vomiting. She also reports having several episodes of diarrhea that is yellow in color. Patient states she also has history of chronic back pain and takes large amounts of NSAIDs and Tylenol. Patient also reports history of hiatal hernia and has had 3 surgical repairs which she believes are unsuccessful. Patient states she takes large amounts of antacids as well. Reports the abdominal pain nausea or vomiting occur after she eats. She also reports some of the abdominal pain is worse whenever she lays flat. Denies chest pain or shortness of breath. Denies any nausea vomiting diarrhea. Denies any urinary or vaginal symptoms. Denies any hematuria, medication or melena. Also has surgical history of a hysterectomy. She denies unilateral leg swelling. - Related Data Home Medications Medication Instructions Recorded Confirmed FLUoxetine HCL [PROzac] 10 mg PO HS 08/27/20 11/24/20 Previous Rx's Medication Instructions Recorded Gabapentin 300 mg PO TID 3 Days #9 cap 11/24/20 Ondansetron Odt [Zofran Odt] 4 mg PO Q8HR PRN #20 tab 11/24/20 Allergies Allergy/AdvReac Type Severity Reaction Status Date / Time codeine AdvReac Severe Nausea & Verified 11/24/20 16:15 Vomiting Review of Systems ROS Statement: Those systems with pertinent positive or pertinent negative responses have been documented in the HPI. ROS Other: All systems not noted in ROS Statement are negative. Past Medical History Past Medical History: GERD/Reflux, Osteoarthritis (OA) Additional Past Medical History / Comment(s): Pancreatitis-chronic, migraines, occasional heart palpitations, bilateral leg varicose veins. hx inflammation disc in back, recent admission for abd. pain, cholecystitis History of Any Multi-Drug Resistant Organisms: None Reported Past Surgical History: Section, Cholecystectomy, Hernia Repair, Hysterectomy, Tubal Ligation Additional Past Surgical History / Comment(s): HYSTEROSCOPY/D&C-January 2016, 06/2019; EGD, COLONOSCOPY, HIATAL HERNIA REPAIR X2. Past Anesthesia/Blood Transfusion Reactions: Motion Sickness, Postoperative Nausea & Vomiting (PONV) Additional Past Anesthesia/Blood Transfusion Reaction / Comment(s): SEVERE VOMITING POST OP- states was medicated with IV and scopolamine that helped Past Psychological History: Bipolar, Depression Smoking Status: Former smoker Past Alcohol Use History: None Reported Past Drug Use History: Marijuana - Past Family History Father Family Medical History: Cancer Additional Family Medical History / Comment(s): LUNG CA. Brother(s) Family Medical History: CVA/TIA, Myocardial Infarction ([place]) Additional Family Medical History / Comment(s): Pt has 2 brothers with CVAs and one brother with a [place]. Mother Family Medical History: No Reported History Additional Family Medical History / Comment(s): Mother is healthy and in her 80s. Son(s) Family Medical History: Blood Disorder Additional Family Medical History / Comment(s): [employer]. General Exam Limitations: no limitations General appearance: alert, in no apparent distress, obese Head exam: Present: atraumatic, normocephalic, normal inspection Eye exam: Present: normal appearance, PERRL, EOMI Pupils: Present: normal accommodation ENT exam: Present: normal exam, normal oropharynx, mucous membranes moist Neck exam: Present: normal inspection, full ROM. Absent: tenderness Respiratory exam: Present: normal lung sounds bilaterally. Absent: respiratory distress, wheezes, rales, rhonchi, stridor Cardiovascular Exam: Present: regular rate, normal rhythm, normal heart sounds GI/Abdominal exam: Present: soft, tenderness (Epigastric and left upper quadrant abdominal pain). Absent: distended, guarding, rebound, rigid Extremities exam: Present: normal inspection, full ROM, normal capillary refill, other (Palpable DP and PT bilaterally.). Absent: pedal edema, joint swelling, calf tenderness Back exam: Present: normal inspection, full ROM. Absent: tenderness, CVA tend erness (R), CVA tenderness (L) Neurological exam: Present: alert, oriented X3 Psychiatric exam: Present: normal affect, normal mood Skin exam: Present: warm, dry, intact, normal color Course Vital Signs 11/24/20 11/24/20 11/24/20 14:35 16:19 17:52 Temperature 98.8 F Pulse Rate 88 72 65 Respiratory 17 18 18 Rate Blood Pressure 122/68 129/77 143/83 O2 Sat by Pulse 98 99 98 Oximetry Medical Decision Making - Medical Decision Making 55-year-old female presenting to emergency Department with a chief complaint of abdominal pain. On physical examination she has epigastric and left upper quadrant abdominal pain. Considering the multiple hernia repairs. CT abdomen and pelvis was obtained showing no acute findings. CBC CMP and UA unremarkable. Patient was given IV fluids and antiemetics. Patient did also have a headache initially which she says that it improved. Patient did request that Neurontin works well for her headache for which she has history of migraines. I did give the patient less than 3 days of Neurontin. I will also discharge her with some Zofran. Return parameters discussed. Patient was understanding agreeable. Case discussed with physician. - Lab Data Result diagrams: 11/24/20 15:27 11/24/20 15:27 Lab Results 11/24/20 11/24/20 11/24/20 Range/Units 15:27 15: 16:49 WBC 7.3 (3.8-10.6) k/uL RBC 4.82 (3.80-5.40) m/uL Hgb 14.6 (11.4-16.0) gm/dL Hct 42.8 (34.0-46.0) % MCV 88.8 (80.0-100.0) fL MCH 30.3 (25.0-35.0) pg MCHC 34.1 (31.0-37.0) g/dL RDW 12.7 (11.5-15.5) % Plt Count 281 (150-450) k/uL MPV 8.8 Neutrophils % 52 % Lymphocytes % 38 % Monocytes % 6 % Eosinophils % 2 % Basophils % 1 % Neutrophils # 3.8 (1.3-7.7) k/uL Lymphocytes # 2.8 (1.0-4.8) k/uL Monocytes # 0.4 (0-1.0) k/uL Eosinophils # 0.1 (0-0.7) k/uL Basophils # 0.1 (0-0.2) k/uL Sodium 139 (137-145) mmol/L Potassium 4.0 (3.5-5.1) mmol/L Chloride 105 (98-107) mmol/L Carbon Dioxide 25 (22-30) mmol/L Anion Gap 9 mmol/L BUN 17 (7-17) mg/dL Creatinine 0.69 (0.52-1.04) mg/dL Est GFR (CKD-EPI)AfAm >90 (>60 ml/min/1.73 sqM) Est GFR (CKD-EPI)NonAf >90 (>60 ml/min/1.73 sqM) Glucose 98 (74-99) mg/dL Calcium 9.9 (8.4-10.2) mg/dL Total Bilirubin 0.5 (0.2-1.3) mg/dL AST 33 (14-36) U/L ALT 39 H (4-34) U/L Alkaline Phosphatase 100 (38-126) U/L Total Protein 7.4 (6.3-8.2) g/dL Albumin 4.4 (3.5-5.0) g/dL Lipase 246 (23-300) U/L Urine Color Colorless Urine Appearance Clear (Clear) Urine pH 6.0 (5.0-8.0) Ur Specific [place] 1.047 H (1.001-1.035) Urine Protein Negative (Negative) Urine Glucose (UA) Negative (Negative) Urine Ketones Negative (Negative) Urine Blood Negative (Negative) Urine Nitrite Negative (Negative) Urine Bilirubin Negative (Negative) Urine Urobilinogen <2.0 (<2.0) mg/dL Ur Leukocyte Esterase Negative (Negative) - EKG Data EKG Comments: Sinus arrhythmia, no ST or T-wave changes Ventricular rate 63, CA 182, QRS 86, QTC 419. Disposition Clinical Impression: Abdominal pain, Nausea vomiting and diarrhea Disposition: HOME SELF-CARE Condition: Stable Instructions (If sedation given, give patient instructions): Abdominal Pain (ED) Additional Instructions: Follow-up with your primary care physician. Return to emergency department if symptoms worsen. Prescriptions: Gabapentin 300 mg PO TID 3 Days #9 cap Ondansetron Odt [Zofran Odt] 4 mg PO Q8HR PRN #20 tab PRN Reason: Nausea Is patient prescribed a controlled substance at d/c from ED?: Yes If prescribed controlled substance>3 days was MAPS reviewed?: Prescribed <3 Days Referrals: Isaias Romero DO [Primary Care Provider] - 1-2 days Time of Disposition: 17:12
[2020-11-24 15:33] LABS: Basophils # (A) 0.1 k/uL (0-0.2); Basophils % (A) 1 %; Eosinophils # (A) 0.1 k/uL (0-0.7); Eosinophils % (A) 2 %; HCT 42.8 % (34.0-46.0); HGB 14.6 gm/dL (11.4-16.0); Lymphocytes # (A) 2.8 k/uL (1.0-4.8); Lymphocytes % (A) 38 %; MCH 30.3 pg (25.0-35.0); MCHC 34.1 g/dL (31.0-37.0); MCV 88.8 fL (80.0-100.0); Mean Platelet Volume 8.8; Monocytes # (A) 0.4 k/uL (0-1.0); Monocytes % (A) 6 %; Neutrophils # (A) 3.8 k/uL (1.3-7.7); Neutrophils % (A) 52 %; Platelet Count 281 k/uL (150-450); RBC 4.82 m/uL (3.80-5.40); RDW 12.7 % (11.5-15.5); WBC 7.3 k/uL (3.8-10.6)
[2020-11-24 15:42] LABS: ALT 39 U/L (4-34); AST 33 U/L (14-36); African American GFR (CKD) >90 (>60 ml/min/1.73 sqM); Albumin 4.4 g/dL (3.5-5.0); Alkaline Phosphatase 100 U/L (38-126); Anion Gap 9 mmol/L; Blood Urea Nitrogen 17 mg/dL (7-17); Calcium 9.9 mg/dL (8.4-10.2); Carbon Dioxide 25 mmol/L (22-30); Chloride 105 mmol/L (98-107); Glucose 98 mg/dL (74-99); Lipase 246 U/L (23-300); Non-African American GFR(CKD) >90 (>60 ml/min/1.73 sqM); Sodium 139 mmol/L (137-145); Total Bilirubin 0.5 mg/dL (0.2-1.3); Total Protein 7.4 g/dL (6.3-8.2)
--- NOTE | 2020-11-24 16:19 | CT ---
EXAMINATION TYPE: CT abdomen pelvis w con DATE OF EXAM: 11/24/2020 COMPARISON: 08/27/2020 HISTORY: Epigastric abdominal pain, history of hiatal hernia and pancreatitis. CT DLP: 1606.4 mGycm Automated exposure control for dose reduction was used. CONTRAST: Performed with IV Contrast, patient injected with 100ml mL of Isovue 300. Lung bases are clear. There is no pleural effusion. Heart size is normal. There is no pericardial eff usion. There is some fatty infiltration of the liver. Spleen is intact. There is no pancreatic mass. There is no adrenal mass. Kidneys show satisfactory contrast opacification. There is no hydronephrosi s. Ureters are not dilated. There is no retroperitoneal adenopathy. Delayed images show normal renal excretion. The bladder distends smoothly. There is no inguinal hernia. There is no free fluid in the pelvis. There is no evidence of pelvic mass. There is no mesenteric edema. There is no ascites or free air. There is no evidence of bowel obstruct ion. Appendix is not seen. There is no sign of thickened appendix. The lumbar vertebra have normal alignment. There is no evidence of compression fracture there is narr owing of L5-S1 disc space. The bony pelvis is intact. IMPRESSION: There is some fatty infiltration of the liver. No evidence of renal stone or obstruction. No sign of acute abdomen and pelvis. No adverse change compared to old exam.
[2020-11-24 16:20] VITALS: RESP 18
[2020-11-24 17:00] LABS: Appearance,Urine Clear (Clear); Bilirubin,Urine Negative (Negative); Blood,Urine Negative (Negative); Color,Urine Colorless; Glucose,Urine (UA) Negative (Negative); Ketones,Urine Negative (Negative); Leukocyte Esterase,Urine Negative (Negative); Nitrite,Urine Negative (Negative); Protein,Urine Negative (Negative); Urobilinogen,Urine <2.0 mg/dL (<2.0)
[2020-11-24 17:09] LABS: Specific Gravity,Urine 1.047 (1.001-1.035)
[2020-11-24] MEDS ORDERED: ONDANSETRON 4 MG ODT STARTER PACK 2 TAB BTL PO STA (17:12)
[2020-11-24 17:53] VITALS: BP 143/83; PULSE 65
== END 2020-11-24 17:31 | disposition home or self-care (01) ==
LOC: EC 14:19
DX: R10.12 Left upper quadrant pain (principal); R11.2 Nausea with vomiting, unspecified; R19.7 Diarrhea, unspecified; G43.909 Migraine, unspecified, not intractable, without status migrainosus; F31.9 Bipolar disorder, unspecified; Z88.5 Allergy status to narcotic agent; Z79.899 Other long term (current) drug therapy; Z87.19 Personal history of other diseases of the digestive system; Z90.49 Acquired absence of other specified parts of digestive tract; Z98.890 Other specified postprocedural states
CPT/HCPCS: 99284; 96374; 96375 ×2; 96361; 36415; 93005; 80053; 83690; 85025; 81003; 74177; J2405; J1885; S0119; Q9967

== ENCOUNTER → 2020-11-25 | Outpatient (CLI) | payer OTHER ==
--- NOTE | 2020-11-25 11:31 | FL ---
EXAMINATION TYPE: FL barium swallow DATE OF EXAM: 11/25/2020 CLINICAL INDICATION: 55-year-old female R1 3.10, unspecified dysphasia, patient throwing up, worsenin g over the last 3 days. History of hiatal hernia repair in 2019. COMPARISON: Correlation CT 11/24/2020 Total Fluoroscopy Time: 2 minutes 19 seconds Total images: 39 FINDINGS: The swallowing mechanism is normal and hypopharyngeal anatomy is preserved. The cervical and thoracic portions have a normal course and caliber. Mild to moderate tertiary perist alsis is encountered with occasional intraesophageal reflux. The mucosa is normal and no persistent filling defect is encountered. There is a small hiatal hernia visualized. Gastroesophageal reflux could not be elicited during the c ourse of the exam. However, this does not exclude its possibility. IMPRESSION: 1. Small hiatal hernia visualized despite the patient's history of prior hiatal hernia repair. 2. Mild esophageal dysmotility. 3. No stricture or suspicious filling defect.
== END | disposition home or self-care (01) ==
LOC: RADUSWWP 08:44
PROVIDERS: ATTEND Surgery Plastic and Reconstructive Surgery
DX: K44.9 Diaphragmatic hernia without obstruction or gangrene (principal); K22.8 Other specified diseases of esophagus
CPT/HCPCS: 74220

== ENCOUNTER 2021-01-27 12:35 | Emergency (ER) | payer OTHER ==
[2021-01-27 14:26] VITALS: RESP 18
[2021-01-27] MEDS ORDERED: SODIUM CHLORIDE 0.9% 1,000 ML IV STA (14:29)
--- NOTE | 2021-01-27 14:31 | ED ---
Abdominal Pain HPI - General Source: patient, RN notes reviewed Mode of arrival: ambulatory Limitations: no limitations <Perico Huerta - Last Filed: 01/27/21 14:30> - General Source: patient, RN notes reviewed Mode of arrival: ambulatory Limitations: no limitations <Ray Bedoya - Last Filed: 01/27/21 16:45> - General Chief Complaint: Abdominal Pain Stated Complaint: ABD pain Time Seen by Provider: 01/27/21 14:29 - History of Present Illness Initial Comments: 55-year-old female presents with left upper quadrant pain and a history of pancreatitis. She notes that this pain feels very similar to her last pancreatitis episode. She states that she has been mild pain and declined the need for any pain medication. She was in no apparent distress or pain sitting up in a chair during the exam interview. (Perico Huerta) Patient is a pleasant 55-year-old female presenting to the emergency Department with complaints of abdominal discomfort nausea vomiting. Onset of symptoms was close to 2 days ago. Patient has vomited several times. Patient took antiemetic this morning with resolution of nausea. Patient has had multiple episodes of yellow diarrhea. Diarrhea seems to be improving. Abdominal discomfort has been mild and remains mild. Patient does have history of pancreatitis multiple times previously that was likely secondary to gallbladder problems. Patient denies significant previous alcohol history and has not drank in 5 years. No fevers. No upper respiratory symptoms. (Ray Bedoya) - Related Data Home Medications Medication Instructions Recorded Confirmed FLUoxetine HCL [PROzac] 20 mg PO HS 08/27/20 01/27/21 Previous Rx's Medication Instructions Recorded Dicyclomine [Bentyl] 20 mg PO QID PRN #15 tablet 01/27/21 Allergies Allergy/AdvReac Type Severity Reaction Status Date / Time codeine AdvReac Severe Nausea & Verified 01/27/21 16:21 Vomiting Review of Systems ROS Other: All systems not noted in ROS Statement are negative. <Perico Huerta - Last Filed: 01/27/21 14:30> ROS Other: All systems not noted in ROS Statement are negative. Constitutional: Denies: fever Eyes: Denies: eye pain ENT: Denies: ear pain Respiratory: Denies: cough Cardiovascular: Denies: chest pain Endocrine: Denies: fatigue Gastrointestinal: Reports: abdominal pain, nausea, vomiting, diarrhea Genitourinary: Denies: dysuria Musculoskeletal: Denies: back pain Skin: Denies: rash Neurological: Denies: weakness <AurelianoRay - Last Filed: 01/27/21 16:45> ROS Statement: Those systems with pertinent positive or pertinent negative responses have been documented in the HPI. Past Medical History Past Medical History: GERD/Reflux, Osteoarthritis (OA) Additional Past Medical History / Comment(s): Pancreatitis-chronic, migraines, occasional heart palpitations, bilateral leg varicose veins. hx inflammation disc in back, recent admission for abd. pain, cholecystitis History of Any Multi-Drug Resistant Organisms: None Reported Past Surgical History: Section, Cholecystectomy, Hernia Repair, Hysterectomy, Tubal Ligation Additional Past Surgical History / Comment(s): HYSTEROSCOPY/D&C-January 2016, 06/2019; EGD, COLONOSCOPY, HIATAL HERNIA REPAIR X2. Past Anesthesia/Blood Transfusion Reactions: Motion Sickness, Postoperative Nausea & Vomiting (PONV) Additional Past Anesthesia/Blood Transfusion Reaction / Comment(s): SEVERE VOMITING POST OP- states was medicated with IV and scopolamine that helped Past Psychological History: Bipolar, Depression Smoking Status: Former smoker Past Alcohol Use History: None Reported Past Drug Use History: Marijuana - Past Family History Father Family Medical History: Cancer Additional Family Medical History / Comment(s): LUNG CA. Brother(s) Family Medical History: CVA/TIA, Myocardial Infarction ([place]) Additional Family Medical History / Comment(s): Pt has 2 brothers with CVAs and one brother with a [place]. Mother Family Medical History: No Reported History Additional Family Medical History / Comment(s): Mother is healthy and in her 80s. Son(s) Family Medical History: Blood Disorder Additional Family Medical History / Comment(s): [employer] [place]. <Perico Huerta - Last Filed: 01/27/21 14:30> General Exam Limitations: no limitations General appearance: alert, in no apparent distress Head exam: Present: atraumatic, normocephalic, normal inspection Eye exam: Present: normal appearance, PERRL, EOMI. Absent: scleral icterus, conjunctival injection, periorbital swelling Neck exam: Present: normal inspection. Absent: tenderness, meningismus, lymphadenopathy Respiratory exam: Present: normal lung sounds bilaterally. Absent: respiratory distress, wheezes, rales, rhonchi, stridor Cardiovascular Exam: Present: regular rate, normal rhythm, normal heart sounds. Absent: systolic murmur, diastolic murmur, rubs, gallop, clicks GI/Abdominal exam: Present: soft, normal bowel sounds. Absent: distended, tenderness, guarding, rebound, rigid Extremities exam: Present: normal inspection, full ROM, normal capillary refill. Absent: tenderness, pedal edema, joint swelling, calf tenderness Neurological exam: Present: alert, oriented X3, CN II-XII intact Psychiatric exam: Present: normal affect, normal mood Skin exam: Present: warm, dry, intact, normal color. Absent: rash <Perico Huerta - Last Filed: 01/27/21 14:30> Limitations: no limitations General appearance: alert, in no apparent distress Head exam: Present: normocephalic Eye exam: Present: normal appearance Neck exam: Present: normal inspection Respiratory exam: Present: normal lung sounds bilaterally Cardiovascular Exam: Present: regular rate, normal rhythm Expanded Peripheral pulses: 2+: Posterior Tibialis (R), Posterior Tibialis (L), Dorsalis Pedis (R), Dorsalis Pedis (L) GI/Abdominal exam: Present: soft, normal bowel sounds. Absent: distended, tenderness, pulsatile mass Extremities exam: Present: normal inspection Neurological exam: Present: alert Psychiatric exam: Present: normal affect, normal mood Skin exam: Present: normal color <Ray Bedoya - Last Filed: 01/27/21 16:45> Course Vital Signs 01/27/21 01/27/21 14:22 15:25 Temperature 98 F Pulse Rate 83 89 Respiratory 18 18 Rate Blood Pressure 145/81 144/80 O2 Sat by Pulse 99 98 Oximetry Medical Decision Making - Lab Data Result diagrams: 01/27/21 14:39 01/27/21 14:39 - Radiology Data Radiology results: report reviewed (Computed tomography scan shows hepatic steatosis. No signs of pancreatitis.) <Ray Bedoya - Last Filed: 01/27/21 16:45> - Medical Decision Making Patient reevaluated and resting comfortably in bed. Patient feeling better. Patient updated on results and need for follow-up. (Ray Bedoya) - Lab Data Lab Results 01/27/21 01/27/21 01/27/21 Range/Units 14:30 14:39 14:39 WBC 8.0 (3.8-10.6) k/uL RBC 4.81 (3.80-5.40) m/uL Hgb 14.8 (11.4-16.0) gm/dL Hct 42.9 (34.0-46.0) % MCV 89.2 (80.0-100.0) fL MCH 30.8 (25.0-35.0) pg MCHC 34.6 (31.0-37.0) g/dL RDW 12.2 (11.5-15.5) % Plt Count 296 (150-450) k/uL MPV 8.8 Neutrophils % 55 % Lymphocytes % 38 % Monocytes % 5 % Eosinophils % 1 % Basophils % 0 % Neutrophils # 4.3 (1.3-7.7) k/uL Lymphocytes # 3.0 (1.0-4.8) k/uL Monocytes # 0.4 (0-1.0) k/uL Eosinophils # 0.1 (0-0.7) k/uL Basophils # 0.0 (0-0.2) k/uL Sodium 139 (137-145) mmol/L Potassium 4.4 (3.5-5.1) mmol/L Chloride 103 (98-107) mmol/L Carbon Dioxide 26 (22-30) mmol/L Anion Gap 10 mmol/L BUN 14 (7-17) mg/dL Creatinine 0.65 (0.52-1.04) mg/dL Est GFR (CKD-EPI)AfAm >90 (>60 ml/min/1.73 sqM) Est GFR (CKD-EPI)NonAf >90 (>60 ml/min/1.73 sqM) Glucose 93 (74-99) mg/dL Calcium 9.9 (8.4-10.2) mg/dL Total Bilirubin 0.6 (0.2-1.3) mg/dL AST 42 H (14-36) U/L ALT 47 H (4-34) U/L Alkaline Phosphatase 119 (38-126) U/L Total Protein 8.1 (6.3-8.2) g/dL Albumin 4.8 (3.5-5.0) g/dL Amylase 94 (30-110) U/L Lipase 211 (23-300) U/L Urine Color Yellow Urine Appearance Cloudy H (Clear) Urine pH 5.5 (5.0-8.0) Ur Specific [place] 1.032 (1.001-1.035) Urine Protein Trace H (Negative) Urine Glucose (UA) Negative (Negative) Urine Ketones 1+ H (Negative) Urine Blood Negative (Negative) Urine Nitrite Negative (Negative) Urine Bilirubin Negative (Negative) Urine Urobilinogen 2.0 (<2.0) mg/dL Ur Leukocyte Esterase Negative (Negative) Urine RBC 3 (0-5) /hpf Urine WBC 4 (0-5) /hpf Ur Squamous Epith Cells 6 H (0-4) /hpf Urine Mucus Many H (None) /hpf Coronavirus (PCR) (Not Detectd) 01/27/21 Range/Units 15:40 WBC (3.8-10.6) k/uL RBC (3.80-5.40) m/uL Hgb (11.4-16.0) gm/dL Hct (34.0-46.0) % MCV (80.0-100.0) fL MCH (25.0-35.0) pg MCHC (31.0-37.0) g/dL RDW (11.5-15.5) % Plt Count (150-450) k/uL MPV Neutrophils % % Lymphocytes % % Monocytes % % Eosinophils % % Basophils % % Neutrophils # (1.3-7.7) k/uL Lymphocytes # (1.0-4.8) k/uL Monocytes # (0-1.0) k/uL Eosinophils # (0-0.7) k/uL Basophils # (0-0.2) k/uL Sodium (137-145) mmol/L Potassium (3.5-5.1) mmol/L Chloride (98-107) mmol/L Carbon Dioxide (22-30) mmol/L Anion Gap mmol/L BUN (7-17) mg/dL Creatinine (0.52-1.04) mg/dL Est GFR (CKD-EPI)AfAm (>60 ml/min/1.73 sqM) Est GFR (CKD-EPI)NonAf (>60 ml/min/1.73 sqM) Glucose (74-99) mg/dL Calcium (8.4-10.2) mg/dL Total Bilirubin (0.2-1.3) mg/dL AST (14-36) U/L ALT (4-34) U/L Alkaline Phosphatase (38-126) U/L Total Protein (6.3-8.2) g/dL Albumin (3.5-5.0) g/dL Amylase (30-110) U/L Lipase (23-300) U/L Urine Color Urine Appearance (Clear) Urine pH (5.0-8.0) Ur Specific [place] (1.001-1.035) Urine Protein (Negative) Urine Glucose (UA) (Negative) Urine Ketones (Negative) Urine Blood (Negative) Urine Nitrite (Negative) Urine Bilirubin (Negative) Urine Urobilinogen (<2.0) mg/dL Ur Leukocyte Esterase (Negative) Urine RBC (0-5) /hpf Urine WBC (0-5) /hpf Ur Squamous Epith Cells (0-4) /hpf Urine Mucus (None) /hpf Coronavirus (PCR) Not Detected (Not Detectd) Disposition <Perico Huerta - Last Filed: 01/27/21 14:30> Is patient prescribed a controlled substance at d/c from ED?: No Time of Disposition: 16:45 <Ray Bedoya - Last Filed: 01/27/21 16:45> Clinical Impression: Abdominal pain, Vomiting, Diarrhea Disposition: HOME SELF-CARE Condition: Stable Instructions (If sedation given, give patient instructions): Abdominal Pain (ED), Acute Nausea and Vomiting (ED), Acute Diarrhea (ED) Additional Instructions: Please do follow-up with primary care physician in the next couple days for recheck. Use your anti-medic medication as needed for nausea. Prescription for Bentyl has been sent to the pharmacy. Return for fever, increased pain, not tolerating oral intake, worsening symptoms or other concerns. Prescriptions: Dicyclomine [Bentyl] 20 mg PO QID PRN #15 tablet PRN Reason: Pain Referrals: Isaias Romero DO [Primary Care Provider] - 1-2 days
[2021-01-27 14:52] LABS: Basophils % (A) 0 %; Eosinophils # (A) 0.1 k/uL (0-0.7); Eosinophils % (A) 1 %; HCT 42.9 % (34.0-46.0); HGB 14.8 gm/dL (11.4-16.0); Lymphocytes % (A) 38 %; MCH 30.8 pg (25.0-35.0); MCHC 34.6 g/dL (31.0-37.0); MCV 89.2 fL (80.0-100.0); Mean Platelet Volume 8.8; Monocytes # (A) 0.4 k/uL (0-1.0); Monocytes % (A) 5 %; Neutrophils # (A) 4.3 k/uL (1.3-7.7); Neutrophils % (A) 55 %; Platelet Count 296 k/uL (150-450); RBC 4.81 m/uL (3.80-5.40); RDW 12.2 % (11.5-15.5)
[2021-01-27 15:00] LABS: ALT 47 U/L (4-34); AST 42 U/L (14-36); African American GFR (CKD) >90 (>60 ml/min/1.73 sqM); Albumin 4.8 g/dL (3.5-5.0); Alkaline Phosphatase 119 U/L (38-126); Amylase 94 U/L (30-110); Anion Gap 10 mmol/L; Blood Urea Nitrogen 14 mg/dL (7-17); Calcium 9.9 mg/dL (8.4-10.2); Carbon Dioxide 26 mmol/L (22-30); Chloride 103 mmol/L (98-107); Glucose 93 mg/dL (74-99); Lipase 211 U/L (23-300); Non-African American GFR(CKD) >90 (>60 ml/min/1.73 sqM); Potassium 4.4 mmol/L (3.5-5.1); Sodium 139 mmol/L (137-145); Total Bilirubin 0.6 mg/dL (0.2-1.3); Total Protein 8.1 g/dL (6.3-8.2)
[2021-01-27] MEDS ORDERED: DICYCLOMINE 10 MG/ML 2 ML AMP IM STA (15:20)
[2021-01-27 15:27] LABS: Appearance,Urine Cloudy (Clear); Bilirubin,Urine Negative (Negative); Blood,Urine Negative (Negative); Color,Urine Yellow; Glucose,Urine (UA) Negative (Negative); Ketones,Urine 1+ (Negative); Leukocyte Esterase,Urine Negative (Negative); Mucus,Urine Many /hpf; Nitrite,Urine Negative (Negative); PH, Urine 5.5 (5.0-8.0); Protein,Urine Trace (Negative); RBC,Urine 3 /hpf (0-5); Specific Gravity,Urine 1.032 (1.001-1.035); Squamous Epithelial Cell,Urine 6 /hpf (0-4); WBC,Urine 4 /hpf (0-5)
--- NOTE | 2021-01-27 15:51 | CT ---
EXAMINATION TYPE: CT abdomen pelvis w con DATE OF EXAM: 01/27/2021 COMPARISON: 11/24/2020 HISTORY: Abdominal pain CT DLP: 1050.70 mGycm CONTRAST: CT scan of the abdomen and pelvis is performed with Oral Contrast and with IV Contrast, patient injec rere with 100 mL of Isovue 370. FINDINGS: LUNG BASES-: No visible nodule. No infiltrate. LIVER/GB: The gallbladder surgically absent. There is evidence of hepatic steatosis. No space occu pying hepatic lesion. Biliary tree is of normal caliber. PANCREAS: No inflammation. No distinct mass. SPLEEN: No splenic enlargement. No lesion seen. ADRENALS: No nodule. No thickening. KIDNEYS/BLADDER: No hydronephrosis. No nephrolithiasis. No distinct renal mass. Urinary bladder g rossly unremarkable. BOWEL: Nonvisualization of the appendix without inflammatory process seen. Normal bowel caliber. No inflammation. GENITAL ORGANS: Hysterectomy changes noted. No evidence for pelvic free fluid. LYMPH NODES: No greater than 1cm abdominal or pelvic lymph nodes are appreciated. AORTA: No significant abnormality. OSSEOUS STRUCTURES: No significant abnormality is seen. OTHER: No significant additional abnormality is seen. IMPRESSION: 1. Hepatic steatosis. 2. No CT evidence to suggest pancreatitis.
[2021-01-27 17:07] VITALS: BP 132/79; PULSE 63; TEMP 98.2
== END 2021-01-27 17:05 | disposition home or self-care (01) ==
LOC: EC 12:35
DX: R10.12 Left upper quadrant pain (principal); R11.10 Vomiting, unspecified; R19.7 Diarrhea, unspecified; F31.9 Bipolar disorder, unspecified; Z79.899 Other long term (current) drug therapy; Z87.891 Personal history of nicotine dependence; Z88.5 Allergy status to narcotic agent
CPT/HCPCS: 36415; 80053; 82150; 83690; 85025; 81001; 87635; 74177; 99284; 96360; 96361; 96372; J0500; Q9967

== ENCOUNTER 2021-07-27 10:15 | Emergency (ER) | payer OTHER ==
[2021-07-27 10:38] VITALS: TEMP 98.7
[2021-07-27] MEDS ORDERED: SODIUM CHLORIDE 0.9% 2,000 ML IV STA (10:38)
[2021-07-27] MEDS ORDERED: METOCLOPRAMIDE 5 MG/ML 2 ML VIAL IVP STA (10:38)
[2021-07-27] MEDS ORDERED: diphenhydrAMINE 50 MG/ML 1 ML VIAL IVP STA (10:38)
[2021-07-27 11:25] VITALS: BP 114/75; PULSE 70; RESP 20
--- NOTE | 2021-07-27 11:48 | ED ---
Abdominal Pain HPI - General Chief Complaint: Abdominal Pain Stated Complaint: Headache/DEBO/Vomiting Time Seen by Provider: 07/27/21 10:38 Source: patient, RN notes reviewed Mode of arrival: ambulatory Limitations: no limitations - History of Present Illness Initial Comments: 56-year-old female presents emergency Department chief complaint abdominal p ain. Patient states she has recurrent pancreatitis. She states last day or so she noticed that she's had intermittent headache, doll bloating mild [place] pain. She states didn't really does not get severe pain she states she gets more nausea from this. Patient states is exactly like her past times. Patient denies complaints of chest pain back pain dysuria hematuria she's had loose green stools. She's not been on any recent antibiotics. No fevers or chills - Related Data Home Medications Medication Instructions Recorded Confirmed FLUoxetine HCL [PROzac] 20 mg PO HS 08/27/20 01/27/21 Previous Rx's Medication Instructions Recorded Dicyclomine [Bentyl] 20 mg PO QID PRN #15 tablet 01/27/21 Allergies Allergy/AdvReac Type Severity Reaction Status Date / Time codeine AdvReac Severe Nausea & Verified 07/27/21 10:37 Vomiting Review of Systems ROS Statement: Those systems with pertinent positive or pertinent negative responses have been documented in the HPI. ROS Other: All systems not noted in ROS Statement are negative. Past Medical History Past Medical History: GERD/Reflux, Osteoarthritis (OA) Additional Past Medical History / Comment(s): Pancreatitis-chronic, migraines, occasional heart palpitations, bilateral leg varicose veins. hx inflammation disc in back, recent admission for abd. pain, cholecystitis History of Any Multi-Drug Resistant Organisms: None Reported Past Surgical History: Section, Cholecystectomy, Hernia Repair, Hysterectomy, Tubal Ligation Additional Past Surgical History / Comment(s): HYSTEROSCOPY/D&C-January 2016, 06/2019; EGD, COLONOSCOPY, HIATAL HERNIA REPAIR X2. Past Anesthesia/Blood Transfusion Reactions: Motion Sickness, Postoperative Nausea & Vomiting (PONV) Additional Past Anesthesia/Blood Transfusion Reaction / Comment(s): SEVERE VOMITING POST OP- states was medicated with IV and scopolamine that helped Past Psychological History: Bipolar, Depression Smoking Status: Former smoker, Vaper Past Alcohol Use History: None Reported Past Drug Use History: Marijuana - Past Family History Father Family Medical History: Cancer Additional Family Medical History / Comment(s): LUNG CA. Brother(s) Family Medical History: CVA/TIA, Myocardial Infarction ([place]) Additional Family Medical History / Comment(s): Pt has 2 brothers with CVAs and one brother with a [place]. Mother Family Medical History: No Reported History Additional Family Medical History / Comment(s): Mother is healthy and in her 80s. Son(s) Family Medical History: Blood Disorder Additional Family Medical History / Comment(s): [employer] [place]. General Exam Limitations: no limitations General appearance: alert, in no apparent distress Head exam: Present: atraumatic, normocephalic, normal inspection Eye exam: Present: normal appearance, PERRL, EOMI. Absent: scleral icterus, conjunctival injection, periorbital swelling ENT exam: Present: normal exam, mucous membranes moist Neck exam: Present: normal inspection. Absent: tenderness, meningismus, lymphadenopathy Respiratory exam: Present: normal lung sounds bilaterally. Absent: respiratory distress, wheezes, rales, rhonchi, stridor Cardiovascular Exam: Present: regular rate, normal rhythm, normal heart sounds. Absent: systolic murmur, diastolic murmur, rubs, gallop, clicks GI/Abdominal exam: Present: soft, normal bowel sounds. Absent: distended, tenderness, guarding, rebound, rigid Course Vital Signs 07/27/21 07/27/21 10:35 11:14 Temperature 98.7 F Pulse Rate 76 70 Respiratory 18 20 Rate Blood Pressure 138/81 114/75 O2 Sat by Pulse 95 98 Oximetry Medical Decision Making - Medical Decision Making 56 show female presented for possible pancreatitis, abdominal complaints. Patient's labs unremarkable shows well hydrated, given antiemetics will be discharged in stable condition return parameters were discussed. - Lab Data Result diagrams: 07/27/21 12:26 07/27/21 12:26 Lab Results 07/27/21 07/27/21 07/27/21 Range/Units 12:26 12:26 12:26 WBC 6.4 (3.8-10.6) k/uL RBC 4.55 (3.80-5.40) m/uL Hgb 13.8 (11.4-16.0) gm/dL Hct 41.7 (34.0-46.0) % MCV 91.7 (80.0-100.0) fL MCH 30.4 (25.0-35.0) pg MCHC 33.2 (31.0-37.0) g/dL RDW 12.6 (11.5-15.5) % Plt Count 118 L (150-450) k/uL MPV 11.0 Neutrophils % 51 % Lymphocytes % 38 % Monocytes % 7 % Eosinophils % 2 % Basophils % 0 % Neutrophils # 3.3 (1.3-7.7) k/uL Lymphocytes # 2.5 (1.0-4.8) k/uL Monocytes # 0.4 (0-1.0) k/uL Eosinophils # 0.1 (0-0.7) k/uL Basophils # 0.0 (0-0.2) k/uL Sodium (137-145) mmol/L Potassium (3.5-5.1) mmol/L Chloride (98-107) mmol/L Carbon Dioxide (22-30) mmol/L Anion Gap mmol/L BUN (7-17) mg/dL Creatinine (0.52-1.04) mg/dL Est GFR (CKD-EPI)AfAm (>60 ml/min/1.73 sqM) Est GFR (CKD-EPI)NonAf (>60 ml/min/1.73 sqM) Glucose (74-99) mg/dL Plasma Lactic Acid [place] 1.0 (0.7-2.0) mmol/L Calcium (8.4-10.2) mg/dL Total Bilirubin (0.2-1.3) mg/dL AST (14-36) U/L ALT (4-34) U/L Alkaline Phosphatase (38-126) U/L Troponin I (0.000-0.034) ng/mL Total Protein (6.3-8.2) g/dL Albumin (3.5-5.0) g/dL Amylase 101 (30-110) U/L Lipase 285 (23-300) U/L 07/27/21 07/27/21 Range/Units 12:26 12:26 WBC (3.8-10.6) k/uL RBC (3.80-5.40) m/uL Hgb (11.4-16.0) gm/dL Hct (34.0-46.0) % MCV (80.0-100.0) fL MCH (25.0-35.0) pg MCHC (31.0-37.0) g/dL RDW (11.5-15.5) % Plt Count (150-450) k/uL MPV Neutrophils % % Lymphocytes % % Monocytes % % Eosinophils % % Basophils % % Neutrophils # (1.3-7.7) k/uL Lymphocytes # (1.0-4.8) k/uL Monocytes # (0-1.0) k/uL Eosinophils # (0-0.7) k/uL Basophils # (0-0.2) k/uL Sodium 139 (137-145) mmol/L Potassium 4.2 (3.5-5.1) mmol/L Chloride 106 (98-107) mmol/L Carbon Dioxide 25 (22-30) mmol/L Anion Gap 8 mmol/L BUN 12 (7-17) mg/dL Creatinine 0.67 (0.52-1.04) mg/dL Est GFR (CKD-EPI)AfAm >90 (>60 ml/min/1.73 sqM) Est GFR (CKD-EPI)NonAf >90 (>60 ml/min/1.73 sqM) Glucose 98 (74-99) mg/dL Plasma Lactic Acid [place] (0.7-2.0) mmol/L Calcium 9.7 (8.4-10.2) mg/dL Total Bilirubin 0.6 (0.2-1.3) mg/dL AST 59 H (14-36) U/L ALT 100 H (4-34) U/L Alkaline Phosphatase 103 (38-126) U/L Troponin I <0.012 (0.000-0.034) ng/mL Total Protein 7.6 (6.3-8.2) g/dL Albumin 4.3 (3.5-5.0) g/dL Amylase (30-110) U/L Lipase (23-300) U/L Disposition Clinical Impression: Nausea, Headache, History of pancreatitis Disposition: HOME SELF-CARE Condition: Stable Instructions (If sedation given, give patient instructions): Pancreatitis (ED) Additional Instructions: Please return to the Emergency Department if symptoms worsen or any other concerns. Is patient prescribed a controlled substance at d/c from ED?: No Referrals: Isaias Romero DO [Primary Care Provider] - 1-2 days Time of Disposition: 14:01
[2021-07-27 12:51] LABS: Basophils % (A) 0 %; Eosinophils # (A) 0.1 k/uL (0-0.7); Eosinophils % (A) 2 %; HCT 41.7 % (34.0-46.0); HGB 13.8 gm/dL (11.4-16.0); Lymphocytes # (A) 2.5 k/uL (1.0-4.8); Lymphocytes % (A) 38 %; MCH 30.4 pg (25.0-35.0); MCHC 33.2 g/dL (31.0-37.0); MCV 91.7 fL (80.0-100.0); Monocytes # (A) 0.4 k/uL (0-1.0); Monocytes % (A) 7 %; Neutrophils # (A) 3.3 k/uL (1.3-7.7); Neutrophils % (A) 51 %; Platelet Count 118 k/uL (150-450); RBC 4.55 m/uL (3.80-5.40); RDW 12.6 % (11.5-15.5); WBC 6.4 k/uL (3.8-10.6)
[2021-07-27 13:29] LABS: Amylase 101 U/L (30-110); Lipase 285 U/L (23-300)
[2021-07-27 13:31] LABS: ALT 100 U/L (4-34); AST 59 U/L (14-36); African American GFR (CKD) >90 (>60 ml/min/1.73 sqM); Albumin 4.3 g/dL (3.5-5.0); Alkaline Phosphatase 103 U/L (38-126); Anion Gap 8 mmol/L; Blood Urea Nitrogen 12 mg/dL (7-17); Calcium 9.7 mg/dL (8.4-10.2); Carbon Dioxide 25 mmol/L (22-30); Chloride 106 mmol/L (98-107); Glucose 98 mg/dL (74-99); Non-African American GFR(CKD) >90 (>60 ml/min/1.73 sqM); Potassium 4.2 mmol/L (3.5-5.1); Sodium 139 mmol/L (137-145); Total Bilirubin 0.6 mg/dL (0.2-1.3); Total Protein 7.6 g/dL (6.3-8.2)
== END 2021-07-27 14:42 | disposition home or self-care (01) ==
LOC: EC 10:15
DX: R11.2 Nausea with vomiting, unspecified (principal); R51.9 Headache, unspecified; R10.9 Unspecified abdominal pain; R14.0 Abdominal distension (gaseous); Z86.69 Personal history of other diseases of the nervous system and sense organs; Z87.19 Personal history of other diseases of the digestive system; Z87.891 Personal history of nicotine dependence; Z90.49 Acquired absence of other specified parts of digestive tract; Z88.6 Allergy status to analgesic agent
CPT/HCPCS: 99284; 93005; 80053; 82150; 83605; 83690; 84484; 85025; 96374; 96375; 96361; J1200; J2765

== ENCOUNTER 2022-01-05 07:30 | Emergency (ER) | payer OTHER ==
[2022-01-05 07:46] VITALS: BP 126/75; PULSE 68; RESP 20; TEMP 98.5
[2022-01-05] MEDS ORDERED: HYDROmorphone 1 MG/ML 1 ML SYRINGE IM STA (08:04)
--- NOTE | 2022-01-05 08:09 | ED ---
Extremity Problem HPI - General Chief complaint: Extremity Problem,Nontraumatic Stated complaint: lt shoulder pain Time Seen by Provider: 01/05/22 07:47 Source: patient, RN notes reviewed Mode of arrival: ambulatory Limitations: no limitations - History of Present Illness Initial comments: This is a 56-year-old female presents emergency Department with chief complaint of left shoulder pain. Patient states that over week or 2 ago she was throwing some trash into the dumpster states that did not begin in the bag was coming down so she caught it and felt some some discomfort to her left shoulder. Patient states she's had progressive symptoms. States she seen in urgent care yesterday was given anti-inflammatories, had x-rays which are negative. Patient states that she's been holding her shoulder up states that the symptoms have been worsening she's getting tightness in the muscles. Patient is right-hand dominant denies any chest pain shortness breath denies any headache. - Related Data Home Medications Medication Instructions Recorded Confirmed FLUoxetine HCL [PROzac] 20 mg PO HS 08/27/20 01/27/21 Previous Rx's Medication Instructions Recorded Dicyclomine [Bentyl] 20 mg PO QID PRN #15 tablet 01/27/21 SUMAtriptan succinate [Imitrex] 50 mg PO ONCE PRN #15 tab 07/27/21 Cyclobenzaprine [Flexeril] 10 mg PO TID PRN #15 tab 01/05/22 HYDROcodone/APAP 5-325MG [[place] 5] 1 each PO Q6HR PRN #12 tab 01/05/22 Allergies Allergy/AdvReac Type Severity Reaction Status Date / Time codeine AdvReac Severe Nausea & Verified 01/05/22 07:46 Vomiting Review of Systems ROS Statement: Those systems with pertinent positive or pertinent negative responses have been documented in the HPI. ROS Other: All systems not noted in ROS Statement are negative. Past Medical History Past Medical History: GERD/Reflux, Osteoarthritis (OA) Additional Past Medical History / Comment(s): Pancreatitis-chronic, migraines, occasional heart palpitations, bilateral leg varicose veins. hx inflammation disc in back, recent admission for abd. pain, cholecystitis History of Any Multi-Drug Resistant Organisms: None Reported Past Surgical History: Section, Cholecystectomy, Hernia Repair, Hysterectomy, Tubal Ligation Additional Past Surgical History / Comment(s): HYSTEROSCOPY/D&C-January 2016, 06/2019; EGD, COLONOSCOPY, HIATAL HERNIA REPAIR X2. Past Anesthesia/Blood Transfusion Reactions: Motion Sickness, Postoperative Nausea & Vomiting (PONV) Additional Past Anesthesia/Blood Transfusion Reaction / Comment(s): SEVERE VOMITING POST OP- states was medicated with IV and scopolamine that helped Past Psychological History: Bipolar, Depression Smoking Status: Former smoker, Vaper Past Alcohol Use History: None Reported Past Drug Use History: Marijuana - Past Family History Father Family Medical History: Cancer Additional Family Medical History / Comment(s): LUNG CA. Brother(s) Family Medical History: CVA/TIA, Myocardial Infarction ([place]) Additional Family Medical History / Comment(s): Pt has 2 brothers with CVAs and one brother with a [place]. Mother Family Medical History: No Reported History Additional Family Medical History / Comment(s): Mother is healthy and in her 80s. Son(s) Family Medical History: Blood Disorder Additional Family Medical History / Comment(s): [place]. General Exam Limitations: no limitations General appearance: alert, in no apparent distress Head exam: Present: atraumatic, normocephalic, normal inspection Neck exam: Present: normal inspection, tenderness (Left trapezius, first par aspinals), full ROM. Absent: meningismus, lymphadenopathy Respiratory exam: Present: normal lung sounds bilaterally. Absent: respiratory distress, wheezes, rales, rhonchi, stridor Cardiovascular Exam: Present: regular rate, normal rhythm, normal heart sounds. Absent: systolic murmur, diastolic murmur, rubs, gallop, clicks Extremities exam: Present: other (Quartz Orientator strength is equal bilaterally of upper extremities, neurovascular intact patient has pain with range of motion limited range of motion left shoulder, there is obvious muscle spasm.) Neurological exam: Present: alert, oriented X3, reflexes normal. Absent: motor sensory deficit Course Vital Signs 01/05/22 07:43 Temperature 98.5 F Pulse Rate 68 Respiratory 20 Rate Blood Pressure 126/75 O2 Sat by Pulse 97 Oximetry Medical Decision Making - Medical Decision Making Patient has left shoulder injury concerning for rotator cuff injury. She has been holding in a flexed position and has been having increasing pain from muscle spasms. Patient we placed a sling for comfort care we did discuss pendulum exercises at home. Patient will follow-up with orthopedics patient provided pain relief. Disposition Clinical Impression: Injury of left rotator cuff Disposition: HOME SELF-CARE Condition: Stable Instructions (If sedation given, give patient instructions): Rotator Cuff Injury (ED) Additional Instructions: Please return to the Emergency Department if symptoms worsen or any other concerns. Prescriptions: Cyclobenzaprine [Flexeril] 10 mg PO TID PRN #15 tab PRN Reason: Muscle Spasm HYDROcodone/APAP 5-325MG [[place] 5] 1 each PO Q6HR PRN #12 tab PRN Reason: Pain Is patient prescribed a controlled substance at d/c from ED?: Yes When asked, does pt state using other controlled substances?: No If prescribed controlled substance>3 days was MAPS reviewed?: Prescribed <3 Days If opioid is for acute pain is fill amount 7 days or less?: Yes If Rx opioid, was Start Talking consent form obtained?: Yes Referrals: Isaias Romero DO [Primary Care Provider] - 1-[address] DO [Doctor of Osteopathic Medicine] - 1-2 days Time of Disposition: 08:09
== END 2022-01-05 08:25 | disposition home or self-care (01) ==
LOC: EC 07:30
DX: S46.002A Unspecified injury of muscle(s) and tendon(s) of the rotator cuff of left shoulder, initial encounter (principal); I25.2 Old myocardial infarction; Z87.891 Personal history of nicotine dependence; Z88.5 Allergy status to narcotic agent; X58.XXXA Exposure to other specified factors, initial encounter
CPT/HCPCS: 99283; 96372; J1170

== ENCOUNTER 2022-05-05 19:51 | Emergency (ER) | payer OTHER ==
[2022-05-05 20:00] VITALS: TEMP 97.6
[2022-05-05] MEDS ORDERED: SODIUM CHLORIDE 0.9% 1,000 ML IV STA (20:57)
[2022-05-05 21:33] LABS: Basophils # (A) 0.1 k/uL (0-0.2); Basophils % (A) 1 %; Eosinophils # (A) 0.2 k/uL (0-0.7); Eosinophils % (A) 3 %; HCT 40.4 % (34.0-46.0); HGB 13.7 gm/dL (11.4-16.0); Lymphocytes # (A) 2.9 k/uL (1.0-4.8); Lymphocytes % (A) 44 %; MCH 31.2 pg (25.0-35.0); MCHC 33.9 g/dL (31.0-37.0); Mean Platelet Volume 9.6; Monocytes # (A) 0.4 k/uL (0-1.0); Monocytes % (A) 7 %; Neutrophils # (A) 2.9 k/uL (1.3-7.7); Neutrophils % (A) 44 %; Platelet Count 250 k/uL (150-450); RBC 4.39 m/uL (3.80-5.40); RDW 12.5 % (11.5-15.5); WBC 6.7 k/uL (3.8-10.6)
[2022-05-05 21:42] LABS: ALT 53 U/L (4-34); African American GFR (CKD) >90 (>60 ml/min/1.73 sqM); Albumin 4.4 g/dL (3.5-5.0); Amylase 70 U/L (30-110); Anion Gap 8 mmol/L; Blood Urea Nitrogen 17 mg/dL (7-17); Calcium 9.3 mg/dL (8.4-10.2); Carbon Dioxide 25 mmol/L (22-30); Chloride 105 mmol/L (98-107); Glucose 96 mg/dL (74-99); Lipase 183 U/L (23-300); Non-African American GFR(CKD) >90 (>60 ml/min/1.73 sqM); Sodium 138 mmol/L (137-145); Total Bilirubin 0.6 mg/dL (0.2-1.3); Total Protein 7.5 g/dL (6.3-8.2)
[2022-05-05 21:43] LABS: AST 46 U/L (14-36); Alkaline Phosphatase 83 U/L (38-126); Potassium 4.5 mmol/L (3.5-5.1)
--- NOTE | 2022-05-05 22:28 | XR ---
EXAMINATION TYPE: XR chest 2V DATE OF EXAM: 05/05/2022 COMPARISON: NONE HISTORY: Short of breath TECHNIQUE: 2 views FINDINGS: Heart and mediastinum are normal. Lungs are clear. Diaphragm is normal. Bony thorax is inta ct. IMPRESSION: Normal chest.
[2022-05-05 22:38] LABS: Appearance,Urine Clear (Clear); Bilirubin,Urine Negative (Negative); Blood,Urine Negative (Negative); Color,Urine Yellow; Glucose,Urine (UA) Negative (Negative); Ketones,Urine 1+ (Negative); Leukocyte Esterase,Urine Negative (Negative); Nitrite,Urine Negative (Negative); PH, Urine 5.5 (5.0-8.0); Protein,Urine Trace (Negative); Urobilinogen,Urine <2.0 mg/dL (<2.0)
--- NOTE | 2022-05-05 23:13 | ED ---
URI HPI - General Chief Complaint: Upper Respiratory Infection Stated Complaint: Cough, Congestion, Dizziness Time Seen by Provider: 05/05/22 20:32 Source: patient Mode of arrival: ambulatory Limitations: no limitations - History of Present Illness Initial Comments: Patient is a 57-year-old female presenting with chief complaint of URI-like symptoms. Patient states that 5 days ago she began developing a cough, body aches, low-grade fever. She is also complaining of sore throat, congestion, sinus pressure. She received treatment from a local urgent care with Augmentin, antihistamines, and Tessalon Perles. Patient states that today she is still not feeling better. She admits to some abdominal cramping and diarrhea. She denies any chest pain at rest, shortness of breath, palpitations, weakness, nausea, vomiting, dysuria, hematuria, urgency, frequency. - Related Data Home Medications Medication Instructions Recorded Confirmed FLUoxetine HCL [PROzac] 20 mg PO HS 08/27/20 01/27/21 Previous Rx's Medication Instructions Recorded Dicyclomine [Bentyl] 20 mg PO QID PRN #15 tablet 01/27/21 SUMAtriptan succinate [Imitrex] 50 mg PO ONCE PRN #15 tab 07/27/21 Cyclobenzaprine [Flexeril] 10 mg PO TID PRN #15 tab 01/05/22 HYDROcodone/APAP 5-325MG [[place] 5] 1 each PO Q6HR PRN #12 tab 01/05/22 Allergies Allergy/AdvReac Type Severity Reaction Status Date / Time codeine AdvReac Severe Nausea & Verified 05/05/22 20:01 Vomiting Review of Systems ROS Statement: Those systems with pertinent positive or pertinent negative responses have been documented in the HPI. ROS Other: All systems not noted in ROS Statement are negative. Past Medical History Past Medical History: GERD/Reflux, Osteoarthritis (OA) Additional Past Medical History / Comment(s): Pancreatitis-chronic, migraines, occasional heart palpitations, bilateral leg varicose veins. hx inflammation disc in back, recent admission for abd. pain, cholecystitis History of Any Multi-Drug Resistant Organisms: None Reported Past Surgical History: Section, Cholecystectomy, Hernia Repair, Hysterectomy, Tubal Ligation Additional Past Surgical History / Comment(s): HYSTEROSCOPY/D&C-January 2016, 06/2019; EGD, COLONOSCOPY, HIATAL HERNIA REPAIR X2. Past Anesthesia/Blood Transfusion Reactions: Motion Sickness, Postoperative Nausea & Vomiting (PONV) Additional Past Anesthesia/Blood Transfusion Reaction / Comment(s): SEVERE VOMITING POST OP- states was medicated with IV and scopolamine that helped Past Psychological History: Bipolar, Depression Smoking Status: Former smoker, Vaper Past Alcohol Use History: None Reported Past Drug Use History: Marijuana - Past Family History Father Family Medical History: Cancer Additional Family Medical History / Comment(s): LUNG CA. Brother(s) Family Medical History: CVA/TIA, Myocardial Infarction ([place]) Additional Family Medical History / Comment(s): Pt has 2 brothers with CVAs and one brother with a [place]. Mother Family Medical History: No Reported History Additional Family Medical History / Comment(s): Mother is healthy and in her 80s. Son(s) Family Medical History: Blood Disorder Additional Family Medical History / Comment(s): [place]. General Exam Limitations: no limitations General appearance: alert, in no apparent distress Head exam: Present: atraumatic, normocephalic, normal inspection Eye exam: Present: normal appearance, EOMI. Absent: scleral icterus, periorbital swelling ENT exam: Present: normal exam, mucous membranes moist Neck exam: Present: normal inspection. Absent: tenderness Respiratory exam: Present: normal lung sounds bilaterally. Absent: respiratory distress, wheezes, rales, rhonchi, stridor Cardiovascular Exam: Present: regular rate, normal rhythm, normal heart sounds. Absent: systolic murmur, diastolic murmur, rubs, gallop, clicks GI/Abdominal exam: Present: soft, normal bowel sounds. Absent: distended, tenderness, guarding, rebound, rigid Neurological exam: Present: alert, oriented X3, CN II-XII intact Psychiatric exam: Present: normal affect, normal mood Skin exam: Present: warm, dry, intact, normal color. Absent: rash Course Vital Signs 05/05/22 19:57 Temperature 97.6 F Pulse Rate 79 Respiratory 18 Rate Blood Pressure 123/83 O2 Sat by Pulse 97 Oximetry Medical Decision Making - Medical Decision Making Patient is a 57-year-old female presenting with chief complaint of URI like symptoms. She admits to cough, congestion, sinus pressure, sore throat, body aches, diarrhea. Examination is unremarkable. There is some mild transaminitis, this is consistent with the patient's baseline. Patient is positive for Covid. Chest x-rays negative. Patient is receiving monoclonal antibodies. Educated on quarantine guidelines. Follow-up with PCP in one week. Report back to ER if any new or worsening symptoms. Answered all questions. Patient conveyed verbal understanding and agreed to the plan. - Lab Data Result diagrams: 05/05/22 21:23 05/05/22 21:23 Lab Results 05/05/22 05/05/22 05/05/22 Range/Units 21:23 21:23 22:01 WBC 6.7 (3.8-10.6) k/uL RBC 4.39 (3.80-5.40) m/uL Hgb 13.7 (11.4-16.0) gm/dL Hct 40.4 (34.0-46.0) % MCV 92.0 (80.0-100.0) fL MCH 31.2 (25.0-35.0) pg MCHC 33.9 (31.0-37.0) g/dL RDW 12.5 (11.5-15.5) % Plt Count 250 (150-450) k/uL MPV 9.6 Neutrophils % 44 % Lymphocytes % 44 % Monocytes % 7 % Eosinophils % 3 % Basophils % 1 % Neutrophils # 2.9 (1.3-7.7) k/uL Lymphocytes # 2.9 (1.0-4.8) k/uL Monocytes # 0.4 (0-1.0) k/uL Eosinophils # 0.2 (0-0.7) k/uL Basophils # 0.1 (0-0.2) k/uL Sodium 138 (137-145) mmol/L Potassium 4.5 (3.5-5.1) mmol/L Chloride 105 (98-107) mmol/L Carbon Dioxide 25 (22-30) mmol/L Anion Gap 8 mmol/L BUN 17 (7-17) mg/dL Creatinine 0.51 L (0.52-1.04) mg/dL Est GFR (CKD-EPI)AfAm >90 (>60 ml/min/1.73 sqM) Est GFR (CKD-EPI)NonAf >90 (>60 ml/min/1.73 sqM) Glucose 96 (74-99) mg/dL Calcium 9.3 (8.4-10.2) mg/dL Total Bilirubin 0.6 (0.2-1.3) mg/dL AST 46 H (14-36) U/L ALT 53 H (4-34) U/L Alkaline Phosphatase 83 (38-126) U/L Total Protein 7.5 (6.3-8.2) g/dL Albumin 4.4 (3.5-5.0) g/dL Amylase 70 (30-110) U/L Lipase 183 (23-300) U/L Urine Color Yellow Urine Appearance Clear (Clear) Urine pH 5.5 (5.0-8.0) Ur Specific [place] 1.030 (1.001-1.035) Urine Protein Trace H (Negative) Urine Glucose (UA) Negative (Negative) Urine Ketones 1+ H (Negative) Urine Blood Negative (Negative) Urine Nitrite Negative (Negative) Urine Bilirubin Negative (Negative) Urine Urobilinogen <2.0 (<2.0) mg/dL Ur Leukocyte Esterase Negative (Negative) Coronavirus (PCR) (Not Detectd) Influenza Type A RNA (Not Detectd) Influenza Type B (PCR) (Not Detectd) 05/05/22 05/05/22 Range/Units 22:01 22:01 WBC (3.8-10.6) k/uL RBC (3.80-5.40) m/uL Hgb (11.4-16.0) gm/dL Hct (34.0-46.0) % MCV (80.0-100.0) fL MCH (25.0-35.0) pg MCHC (31.0-37.0) g/dL RDW (11.5-15.5) % Plt Count (150-450) k/uL MPV Neutrophils % % Lymphocytes % % Monocytes % % Eosinophils % % Basophils % % Neutrophils # (1.3-7.7) k/uL Lymphocytes # (1.0-4.8) k/uL Monocytes # (0-1.0) k/uL Eosinophils # (0-0.7) k/uL Basophils # (0-0.2) k/uL Sodium (137-145) mmol/L Potassium (3.5-5.1) mmol/L Chloride (98-107) mmol/L Carbon Dioxide (22-30) mmol/L Anion Gap mmol/L BUN (7-17) mg/dL Creatinine (0.52-1.04) mg/dL Est GFR (CKD-EPI)AfAm (>60 ml/min/1.73 sqM) Est GFR (CKD-EPI)NonAf (>60 ml/min/1.73 sqM) Glucose (74-99) mg/dL Calcium (8.4-10.2) mg/dL Total Bilirubin (0.2-1.3) mg/dL AST (14-36) U/L ALT (4-34) U/L Alkaline Phosphatase (38-126) U/L Total Protein (6.3-8.2) g/dL Albumin (3.5-5.0) g/dL Amylase (30-110) U/L Lipase (23-300) U/L Urine Color Urine Appearance (Clear) Urine pH (5.0-8.0) Ur Specific [place] (1.001-1.035) Urine Protein (Negative) Urine Glucose (UA) (Negative) Urine Ketones (Negative) Urine Blood (Negative) Urine Nitrite (Negative) Urine Bilirubin (Negative) Urine Urobilinogen (<2.0) mg/dL Ur Leukocyte Esterase (Negative) Coronavirus (PCR) Detected A (Not Detectd) Influenza Type A RNA Not Detected (Not Detectd) Influenza Type B (PCR) Not Detected (Not Detectd) Disposition Clinical Impression: COVID Disposition: HOME SELF-CARE Condition: Good Instructions (If sedation given, give patient instructions): COVID-19 (Coronavirus Disease 2019) (ED), How to Recover from COVID-19 at Home (ED) Additional Instructions: Follow-up with PCP in one week. Report back to ER with any new or worsening symptoms. Quarantine at home for 5 days starting from T1 of symptoms, after 5 days if you are symptom-free you may go out in public with a well fitted mask on at all times. If after 5 days you are not symptom-free, continue your quarantine until symptoms have resolved. Rest, hydrate, take Motrin and Tylenol as needed for pain and fever control. Is patient prescribed a controlled substance at d/c from ED?: No Referrals: Isaias Romero DO [Primary Care Provider] - 1-2 days Time of Disposition: 00:40
[2022-05-05] MEDS ORDERED: BEBTELOVIMAB (EUA) 175 MG/2 ML VIAL IV ONE (23:30)
[2022-05-06 01:51] VITALS: BP 122/82; PULSE 82; RESP 16
== END 2022-05-06 01:00 | disposition home or self-care (01) ==
LOC: EC 19:51
DX: U07.1 COVID-19 (principal); K21.9 Gastro-esophageal reflux disease without esophagitis; M19.90 Unspecified osteoarthritis, unspecified site; F31.9 Bipolar disorder, unspecified; F12.90 Cannabis use, unspecified, uncomplicated; Z87.891 Personal history of nicotine dependence; Z79.899 Other long term (current) drug therapy
CPT/HCPCS: 36415; 80053; 82150; 83690; 85025; 81003; 87502; 87635; 71046; 99284; 96360; Q0222

== ENCOUNTER 2024-07-06 09:29 | Emergency (ER) | payer OTHER ==
[2024-07-06 09:51] VITALS: TEMP 98.1
--- NOTE | 2024-07-06 10:10 | ED ---
Extremity Problem HPI - General Chief complaint: Extremity Problem,Nontraumatic Stated complaint: L shoulder pain Time Seen by Provider: 07/06/24 10:09 Source: patient, RN notes reviewed Mode of arrival: ambulatory Limitations: no limitations - History of Present Illness Initial comments: 59-year-old female presented to the ER with a chief complaint of left shoulder pain. Patient states she was taking off her bra last night and felt a pop. She states then she send she has been noticing extreme pain especially with range of motion. She denies any paresthesias to the upper extremity. She has not taken anything for pain at this time. Denies any chest pain, shortness of breath, fevers, chills, nausea, vomiting or other complaints. - Related Data Home Medications Medication Instructions Recorded Confirmed FLUoxetine HCL [PROzac] 20 mg PO HS 08/27/20 01/27/21 Previous Rx's Medication Instructions Recorded Dicyclomine [Bentyl] 20 mg PO QID PRN #15 tablet 01/27/21 SUMAtriptan succinate [Imitrex] 50 mg PO ONCE PRN #15 tab 07/27/21 Cyclobenzaprine [Flexeril] 10 mg PO TID PRN #15 tab 01/05/22 HYDROcodone/APAP 5-325MG [[place] 5] 1 each PO Q6HR PRN #12 tab 01/05/22 predniSONE 50 mg PO DAILY #5 tab 07/06/24 Allergies Allergy/AdvReac Type Severity Reaction Status Date / Time codeine AdvReac Severe Nausea & Verified 07/06/24 09:51 Vomiting Review of Systems ROS Statement: Those systems with pertinent positive or pertinent negative responses have been documented in the HPI. ROS Other: All systems not noted in ROS Statement are negative. Past Medical History Past Medical History: GERD/Reflux, Osteoarthritis (OA) Additional Past Medical History / Comment(s): Pancreatitis-chronic, migraines, occasional heart palpitations, bilateral leg varicose veins. hx inflammation disc in back, recent admission for abd. pain, cholecystitis History of Any Multi-Drug Resistant Organisms: None Reported Past Surgical History: Section, Cholecystectomy, Hernia Repair, Hysterectomy, Tubal Ligation Additional Past Surgical History / Comment(s): HYSTEROSCOPY/D&C-January 2016, 06/2019; EGD, COLONOSCOPY, HIATAL HERNIA REPAIR X2. Past Anesthesia/Blood Transfusion Reactions: Motion Sickness, Postoperative Nausea & Vomiting (PONV) Additional Past Anesthesia/Blood Transfusion Reaction / Comment(s): SEVERE VOMITING POST OP- states was medicated with IV and scopolamine that helped Past Psychological History: Bipolar, Depression Smoking Status: Former smoker, Vaper Past Alcohol Use History: None Reported Past Drug Use History: Marijuana - Past Family History Father Family Medical History: Cancer Additional Family Medical History / Comment(s): LUNG CA. Brother(s) Family Medical History: CVA/TIA, Myocardial Infarction (LA) Additional Family Medical History / Comment(s): Pt has 2 brothers with CVAs and one brother with a LA. Mother Family Medical History: No Reported History Additional Family Medical History / Comment(s): Mother is healthy and in her 80s. Son(s) Family Medical History: Blood Disorder Additional Family Medical History / Comment(s): [employer] [place]. General Exam Limitations: no limitations General appearance: alert, in no apparent distress Neck exam: Present: normal inspection. Absent: tenderness, meningismus, lymphadenopathy Respiratory exam: Present: normal lung sounds bilaterally. Absent: respiratory distress, wheezes, rales, rhonchi, stridor Cardiovascular Exam: Present: regular rate, normal rhythm, normal heart sounds. Absent: systolic murmur, diastolic murmur, rubs, gallop, clicks Extremities exam: Present: tenderness (left trapezius), other (2+ left radial pulse. 4+ hair dryer strength left upper extremity. Limited range of motion due to pain. No focal bony tenderness. No overlying skin changes.) Neurological exam: Present: alert, oriented X3, CN II-XII intact Skin exam: Present: warm, dry, intact, normal color. Absent: rash Course Vital Signs 07/06/24 09:48 Temperature 98.1 F Pulse Rate 76 Respiratory 18 Rate Blood Pressure 127/80 O2 Sat by Pulse 99 Oximetry Medical Decision Making - Medical Decision Making Was pt. sent in by a medical professional or institution (, JUWAN, DIGITAL CAMERA TECHNICIAN, urgent care, hospital, or penitentiary...) When possible be specific @ -No Did you speak to anyone other than the patient for history (EMS, parent, family, police, friend...)? What history was obtained from this source @ -No Did you review nursing and triage notes (agree or disagree)? Why? @ -I reviewed and agree with nursing and triage notes Were old charts reviewed (outside hosp., previous admission, EMS record, old EKG, old radiological studies, urgent care reports/EKG's, penitentiary records)? Report findings @ -No old charts were reviewed Differential Diagnosis (chest pain, altered mental status, abdominal pain women, abdominal pain men, vaginal bleeding, weakness, fever, dyspnea, syncope, headache, dizziness, GI bleed, back pain, seizure, CVA, palpatations, mental health, musculoskeletal)? @ -Differential Musculoskeletal: Muscular strain, contusion, ligament sprain, fracture, arthritis, septic arthritis, bursitis, cellulitis, muscle spasm, nerve compression, DVT, arterial occlusion, herpes zoster, electrolyte abnormality, tumor.... This is not meant to be in all inclusive list EKG interpreted by me (3pts min.). @ -None X-rays interpreted by me (1pt min.). @ -Left shoulder x-ray showing mild to moderate left AC joint osteoarthritis. No acute fractures or dislocations. CT interpreted by me (1pt min.). @ -None done U/S interpreted by me (1pt. min.). @ -None done What testing was considered but not performed or refused? (CT, X-rays, U/S, labs)? Why? @ -None What meds were considered but not given or refused? Why? @ -Patient refused analgesic medications Did you discuss the management of the patient with other professionals (professionals i.e. , PA, DIGITAL CAMERA TECHNICIAN, lab, RT, psych nurse, oncology social worker, telecommunications facility examiner, teacher, officer captain, rehabilitation case coordinator)? Give summary @ -No Was smoking cessation discussed for >3mins.? @ -No Was critical care preformed (if so, how long)? @ -No Were there social determinants of health that impacted care today? How? (Homelessness, low income, unemployed, alcoholism, drug addiction, transportation, low edu. Level, literacy, decrease access to med. care, alf, rehab)? @ -No Was there de-escalation of care discussed even if they declined (Discuss DNR or withdrawal of care, Hospice)? DNR status @ -No What co-morbidities impacted this encounter? (DM, HTN, Smoking, COPD, CAD, Cancer, CVA, ARF, Chemo, Hep., AIDS, mental health diagnosis, sleep apnea, morbid obesity)? @ -None Was patient admitted / discharged? Hospital course, mention meds given and route, prescriptions, significant lab abnormalities, going to OR and other pertinent info. @ -Discharge. 59-year-old female presented to the ER with a chief complaint of left shoulder pain. History and physical exam completed. Vitals within normal limits. Patient had no signs of acute distress. Patient denied any chest pain, shortness of breath, nausea, vomiting, dizziness or lightheadedness. Exam remarkable for neurovascular intact left upper extremity. Pain with range of motion. Tenderness to palpation of right trapezius muscle. X-rays obtained negative for acute osseous process. Patient refused analgesic medications. Pain believed only musculoskeletal in nature as worse with motion and palpitation. Patient also reports a popping sensation yesterday during onset of pain. I advised [id number] anti-inflammatories for pain control. Prednisone prescribed. Patient reports follow-up with PCP tomorrow for routine checkup. Strict return parameters discussed. Patient discharged stable condition. Patient verbally expressed understanding agree with care plan. Case discussed with the attending, . Undiagnosed new problem with uncertain prognosis? @ -No Drug Therapy requiring intensive monitoring for toxicity (Heparin, Nitro, Insulin, Cardizem)? @ -No Were any procedures done? @ -No Diagnosis/symptom? @ -Musculoskeletal pain Acute, or Chronic, or Acute on Chronic? @ -Acute Uncomplicated (without systemic symptoms) or Complicated (systemic symptoms)? @ -Uncomplicated Side effects of treatment? @ -No Exacerbation, Progression, or Severe Exacerbation? @ -No Poses a threat to life or bodily function? How? (Chest pain, USA, LA, pneumonia, PE, COPD, DKA, ARF, appy, cholecystitis, CVA, Diverticulitis, Homicidal, Suicidal, threat to staff... and all critical care pts) @ -No Disposition Clinical Impression: Shoulder pain, Musculoskeletal pain Disposition: HOME SELF-CARE Condition: Stable Additional Instructions: Please follow-up with PCP tomorrow as scheduled. Return to the ER for any new or worsening symptoms. Prescriptions: predniSONE 50 mg PO DAILY #5 tab Is patient prescribed a controlled substance at d/c from ED?: No Referrals: Isaias Romero DO [Primary Care Provider] - 1-2 days Kyle Zhang DO [Doctor of Osteopathic Medicine] - 1-2 days Time of Disposition: 12:12
--- NOTE | 2024-07-06 11:42 | XR ---
EXAMINATION TYPE: XR shoulder complete 3 views LT DATE OF EXAM: 07/06/2024 Comparison: None Clinical History: 59-year-old female left shoulder pain, limited range of motion Findings: There is mild to moderate degenerative joint space narrowing at the AC joint with subchondral cystic change and capsular hypertrophy. Subacromial space is preserved. No acute fracture, subluxation, disl ocation seen. Visualized left hemithorax is clear. Impression: Mild to moderate left AC joint OA. No acute osseous abnormality seen.
[2024-07-06 12:40] VITALS: BP 122/79; PULSE 77; RESP 16
== END 2024-07-06 12:40 | disposition home or self-care (01) ==
LOC: EC 09:29
CPT/HCPCS: 99283

== ENCOUNTER → 2024-09-13 | Outpatient (CLI) | payer OTHER ==
--- NOTE | 2024-09-13 10:14 | XR ---
EXAMINATION TYPE: XR chest 2V DATE OF EXAM: 09/13/2024 10:06 AM COMPARISON: None. CLINICAL INDICATION: Female, 59 years old with history of R002 PALPITATIONS, TECHNIQUE: XR chest 2V view(s) obtained. FINDINGS: The heart size is normal. The pulmonary vasculature is normal. The lungs are clear. IMPRESSION: 1. No acute pulmonary process. [facility], , 09/13/2024 10:12 AM
== END | disposition home or self-care (01) ==
LOC: RADXRYALE 09:40
PROVIDERS: ATTEND Physician Assistant
DX: R00.2 Palpitations (principal)
CPT/HCPCS: 71046

== ENCOUNTER → 2024-10-02 | Outpatient (CLI) | payer OTHER ==
--- NOTE | 2024-10-02 14:39 | XR ---
EXAMINATION TYPE: XR abdomen 2V DATE OF EXAM: 10/02/2024 2:31 PM COMPARISON: 12/04/2022 CLINICAL INDICATION: Female, 59 years old with history of [id number] LUQ PAIN, DIARRHEA, , FINDINGS: Lung bases are clear. No evidence for free intraperitoneal air. No dilated small bowel or air-fluid levels. No significant stool burden. Scattered air is present within the colon. Right-sided pelvic phleboliths. No other suspicious calcification is seen. IMPRESSION: No evidence for free air or bowel obstruction. No significant stool burden. [facility], , 10/02/2024 2:36 PM
== END | disposition home or self-care (01) ==
LOC: RADXRYALE 14:17
PROVIDERS: ATTEND Physician Assistant Medical
DX: R10.812 Left upper quadrant abdominal tenderness (principal); R19.7 Diarrhea, unspecified
CPT/HCPCS: 74019

== ENCOUNTER → 2024-10-10 | Outpatient (CLI) | payer OTHER ==
--- NOTE | 2024-10-11 07:47 | CA ---
Transthoracic Echo Report Name: Lisette Dick Age: 59 Gender: F : 1965 Exam Date: 10/10/2024 08:40 Exam Location: [facility] Ht (in): 65 Wt (lb): 165 Ordering Physician: Isaias Romero DO Attending/Referring Phys: Lucila Bond PAC Meter Repair Shop Supervisor Fay Fernández RDCS Procedure CPT: Indications: R00.2 palpitations Cardiac Hx: Technical Quality: Good Contrast 1: Total Dose (mL): Contrast 2: Total Dose (mL): MEASUREMENTS (Male / Female) Normal Values 2D ECHO LV Diastolic Diameter PLAX 4.0 cm 4.2 - 5.9 / 3.9 - 5.3 cm LV Systolic Diameter PLAX 2.4 cm IVS Diastolic Thickness 1.1 cm 0.6 - 1.0 / 0.6 - 0.9 cm LVPW Diastolic Thickness 1.0 cm 0.6 - 1.0 / 0.6 - 0.9 cm LV Relative Wall Thickness 0.5 RV Internal Dim ED PLAX 3.1 cm LA Systolic Diameter LX 3.0 cm 3.0 - 4.0 / 2.7 - 3.8 cm LV Diastolic Volume MOD 4C 88.0 cm??? LV Systolic Volume MOD 4C 42.2 cm??? LV Ejection Fraction MOD 4C 52.0 % LV Cardiac Index MOD 4C 1616.7 cm???/min???m??? LV Diastolic Length 4C 8.2 cm LV Systolic Length 4C 6.3 cm LV Diastolic Volume MOD 2C 54.7 cm??? LV Systolic Volume MOD 2C 27.3 cm??? LV Ejection Fraction MOD 2C 50.1 % LV Cardiac Index MOD 2C 966.6 cm???/min???m??? LV Diastolic Length 2C 7.9 cm LV Systolic Length 2C 6.6 cm LA Volume 32.9 cm??? 18 - 58 / 22 - 52 cm??? LA Volume Index 17.6 cm???/m??? 16 - 28 cm???/m??? M-MODE Aortic Root Diameter MM 2.8 cm AV Cusp Separation MM 2.0 cm DOPPLER AV Peak Velocity 133.6 cm/s AV Peak Gradient 7.1 mmHg MV Area PHT 2.3 cm??? Mitral E Point Velocity 69.6 cm/s Mitral A Point Velocity 93.3 cm/s Mitral E to A Ratio 0.7 MV Deceleration Time 329.6 ms TR Peak Velocity 167.2 cm/s TR Peak Gradient 11.2 mmHg Right Ventricular Systolic Press 16.2 mmHg FINDINGS Left Ventricle Left ventricular ejection fraction is estimated at 55-60 %. Left ventricular cavity size normal. Left ventricular wall thickness normal. Normal left ventricular wall motion. Right Ventricle Normal right ventricular size and function. Right ventricular systolic pressure within normal limits. Right Atrium Normal right atrial size. No right atrial thrombus or mass seen. Left Atrium Normal left atrial size. No left atrial thrombus or mass present. Mitral Valve Structurally normal mitral valve. No evidence for mitral valve prolapse. No mitral stenosis. Trace mitral regurgitation. Aortic Valve Trileaflet aortic valve. No aortic valve stenosis or regurgitation. Tricuspid Valve Structurally normal tricuspid valve. Trace to mild tricuspid regurgitation. Pulmonic Valve Pulmonic valve not well visualized. No pulmonic regurgitation. Pericardium No pericardial or pleural effusion. Aorta Normal size aortic root and proximal ascending aorta. CONCLUSIONS Normal LV size and systolic function. No significant abnormality on the Doppler exam. No pericardial effusion Previewed by: Dr. Ella Tucker MD (Electronically Signed) Final Date: 11 October 2024 07:46
== END | disposition home or self-care (01) ==
LOC: RADECHMAIN 07:32
PROVIDERS: ATTEND Family Medicine
DX: I07.1 Rheumatic tricuspid insufficiency (principal); I34.0 Nonrheumatic mitral (valve) insufficiency; R00.2 Palpitations
CPT/HCPCS: 93270; 93306